=== PATIENT | male | born 1950 | race Caucasian/White ===

== ENCOUNTER 2022-09-27 21:37 | Emergency (ER) | payer MEDICARE, OTHER, SELFPAY ==
[2022-09-27 21:43] VITALS: BP 162/93; PULSE 60; RESP 16; TEMP 36.7; O2SAT 96
--- NOTE | 2022-09-27 21:54 | ECG_ITS ---
[facility] Test Date: 2022-09-27 Pat Name: Herb Chanel Department: Room: Gender: Male Chainer: : 1950 Requested By: Yassine Powell Order Number: [id number] Meryl MD: Monica Hadley M.D. Measurements Intervals [place] Rate: 70 P: 44 NM: 152 QRS: 43 QRSD: 93 T: 45 QT: 386 QTc: 417 Interpretive Statements SINUS RHYTHM Compared to ECG 09/19/2014 05:52:57 Myocardial infarct finding no longer present Electronically Signed On 09-27-2022 22:05:30 GARMENT MENDER by Monica Hadley M.D. [id number]
--- NOTE | 2022-09-27 21:54 | CTR_ITS ---
PROCEDURE INFORMATION: Exam: CT Head Without Contrast Exam date and time: 09/27/2022 10:13 PM Age: 72 years old Clinical indication: Numbness / parasthesia; Right; Additional info: Neuro TECHNIQUE: Imaging protocol: Computed tomography of the head without contrast. Radiation optimization: All CT scans at this facility use at least one of these dose optimization techniques: automated exposure control; mA and/or kV adjustment per patient size (includes targeted exams where dose is matched to clinical indication); or iterative reconstruction. Other protocol: This patient has received 0 known CTs and 0 known cardiac nuclear medicine studies in the 12 months prior to the current study. COMPARISON: No relevant prior studies available. RADIATION DOSE METRICS: Total DLP (mGy-cm): 1282.05 FINDINGS: Brain: Mild diffuse white matter disease likely reflecting chronic microvascular ischemic changes. Cerebral ventricles: No ventriculomegaly. Paranasal sinuses: Visualized sinuses are unremarkable. No fluid levels. Mastoid air cells: Visualized mastoid air cells are well aerated. Bones/joints: Unremarkable. No acute fracture. Soft tissues: Unremarkable. CT/CT head wo con* [id number] IMPRESSION: Negative for intracranial hemorrhage or mass effect.
[2022-09-27 22:00] VITALS: BP 155/85; RESP 18; O2SAT 97
--- NOTE | 2022-09-27 22:27 | ED_ITS ---
HPI - Neuro Symptoms/Deficit General: Chief Complaint: Neuro Symptoms/Deficit Stated Complaint: Right side of body tingling/numb Time Seen by Provider: 09/27/22 21:56 Source: patient History of Present Illness: 72-year-old male presenting after waking up from sleep. His son believes he probably fell asleep from 830 to 9 PM. When he awoke, he had a numb feeling in his face. His son thought that his right face may be weak or droopy. He says that his right arm felt heavy and tingly as well. Symptoms have essentially resolved except for some mild facial numbness which is improving at this point. He has a history of coronary disease status post stenting in the . No prior history of stroke. He has been under stress recently trying to get caught up with work. Last Observed Normal: 20:30 Timing confirmed by: family member Location: right face and right arm History of same: No Severity: mild Quality: weak, numb and tingling Relieving factors: none Exacerbating factors: none Context: sudden onset On Anticoagulants: No Associated symptoms: Deny chest pain, cough, diaphoresis, fevers/chills, headache(s), seizures, short of breath, vertigo or vomiting Review of Systems Const: Denies: fever(s) or diaphoresis Eyes: Denies: change in vision ENMT: Denies: throat pain Card: Denies: chest pain Resp: Denies: dyspnea or productive cough GI: Denies: abdominal pain or vomiting Musc: Denies: neck pain Neuro: Denies: headache(s) or vertigo Psych: Reports: anxiety PFSH ED PFSH: Medical History Anxiety ASHD (arteriosclerotic heart disease) Dyslipidemia Venous insufficiency Surgical History S/P PTCA (percutaneous transluminal coronary angioplasty) Family History Father , AGE 64 CAD (coronary artery disease) Myocardial infarction Social History Smoking and tobacco status: never smoked Marital status: service: No Current occupational status: employed NIH stroke score NIHSS: Level Of Consciousness - 1a: 0 Level Of Consciousness Questions - 1b: Both Correct Level Of Consciousness Commands - 1c: Both Correct Best Gaze - 2: Normal Visual Mooney - 3: No Visual Loss Facial Palsy - 4: Normal Motor Arm Right - 5: No Drift Motor Arm Left - 5: No Drift Motor Leg Right - 6: No Drift Motor Leg Left - 6: No Drift Limb Ataxia - 7: Absent Sensory - 8: Normal Best Language - 9: No Aphasia Dysarthia - 10: Normal Extinction And Inattention - 11: 0 Score: Total Score: 0 Physical Exam Const: COMMON NORMALS: no acute distress GENERAL APPEARANCE: cooperative; not ill appearing HENMT: COMMON NORMALS: normocephalic, atraumatic and Normal external nose present HEAD & SCALP: normocephalic and atraumatic FACE & SINUS: normal facial exam and face symmetric NOSE: Normal external nose present Eye: COMMON NORMALS: Equal, round and reactive pupils present and EOMs intact bilaterally PUPIL: Yes Equal, round and reactive pupils present Neck/C-Spine: GENERAL: Yes trachea midline Chest: CHEST: Yes Symmetrical chest wall rise Resp: COMMON NORMALS: normal respiratory effort, No retractions, No use of accessory muscles and clear to auscultation bilaterally AUSCULTATION: clear to auscultation bilaterally Cardio: COMMON NORMALS: regular rate and regular rhythm RATE: regular rate RHYTHM: regular rhythm GI: COMMON NORMALS: Normal to inspection, nondistended, normoactive bowel sounds present Extremity: COMMON NORMALS: no pedal edema Neuro: [place] COMA SCALE: document GCS findings [place] coma scale eye opening: Spontaneous [place] coma scale verbal response: Orientated [place] coma scale motor response: Obey commands [place] coma scale total score: 15 SENSORY EXAM: Yes extremities (intact) Psych: COMMON NORMALS: speech normal SPEECH: Yes normal speech Skin: COMMON NORMALS: no rashes or lesions noted GENERAL SKIN EXAM: no rashes or lesions noted Course Vital Signs: Vital signs: Vital Signs Temperature 98.0 F 09/27/22 21:43 Pulse Rate 55 L 09/27/22 23:30 Respiratory Rate 23 H 09/27/22 23:30 Blood Pressure 133/72 09/27/22 23:30 Pulse Oximetry 96 09/27/22 23:30 Oxygen Delivery Me thod 09/27/22 23:30 MDM - Neuro Symptoms/Deficit Medical Decision Making 72-year-old male with resolving right-sided neurological symptoms. His facial tingling is nearly resolved. His other symptoms are resolved. His NIH stroke scale is 0. His head CT is negative. CBC is not remarkable. His EKG shows a n ormal sinus rhythm with normal axis and intervals, no ST changes. He has had some short episodes of bradycardia here that are asymptomatic, and not profound. His blood pressure is 133/72. He will be allowed discharge home. Lab Data 09/27/22 22:30 09/27/22 22: Radiology Impressions Head CT 09/27/22 21:54 IMPRESSION: Negative for intracranial hemorrhage or mass effect. Laboratory Results WBC 6.9 10^3/uL (4.0-10.0) 09/27/22: RBC 4.21 10^6/uL (4.1-5.3) 09/27/22: Hgb 13.4 g/dL (11.7-16.6) 09/27/22: Hct 39.5 % (42.0-52.0) L 09/27/22: MCV 93.8 fl (80-94) 09/27/22: MCH 31.8 pg (28.0-34.0) 09/27/22: MCHC 33.9 g/dL (30.0-36.0) 09/27/22: RDW 13.1 % (12.1-15.1) 09/27/22: Plt Count 197 10^3/cmm (130-400) 09/27/22: MPV 10.4 fL (7.4-10.4) 09/27/22: Neut % (Auto) 60.2 % 09/27/22: Lymph % (Auto) 30.6 % 09/27/22: [place] % (Auto) 5.8 % 09/27/22: Eos % (Auto) 2.6 % 09/27/22: Baso % (Auto) 0.7 % 09/27/22: Neut # (Auto) 4.15 10^3/uL (1.8-7.7) 09/27/22: Lymph # (Auto) 2.1 10^3/uL (0.8-4.8) 09/27/22 22:30 [place] # (Auto) 0.4 10^3/uL (0.2-0.9) 09/27/22 22:30 Eos # (Auto) 0.2 10^3/uL (0.0-0.8) 09/27/22 22:30 Baso # (Auto) 0.1 10^3/uL (0.0-0.1) 09/27/22 22:30 Nucleated RBC % (auto) 0 % 09/27/22: Nucleated RBCs # 0.0 /100WBC 09/27/22 22: PT 13.50 SECONDS (12.1-14.9) 09/27/22: INR 1.00 (0.8-1.2) 09/27/22 22: APTT 30.3 SECONDS (23.9-36.7) 09/27/22 22: D-Dimer 0.67 ug/mIFEU (0-0.59) H 09/27/22 22:30 Sodium 143 mmol/L (136-145) 09/27/22 22: Potassium 3.7 mmol/L (3.5-5.1) 09/27/22 22: Chloride 103 mmol/L (98-107) 09/27/22: Carbon Dioxide 30 mmol/L (22-29) H 09/27/22 22: Anion Gap 13.7 (5-19) 09/27/22 22:30 BUN 14 mg/dL (8-23) 09/27/22 22: Creatinine 0.9 mg/dL (0.7-1.2) 09/27/22 22:30 GFR Calculation 83.4 mL/min (90-130) L 09/27/22 22: Glucose 118 mg/dL (65-115) H 09/27/22 22:30 Calculated Osmolality 298 mOsm/kg (285-295) H 09/27/22: Calcium 9.4 mg/dL (8.5-10.5) 09/27/22 22:30 Total Bilirubin 0.4 mg/dL (0.15-1.2) 09/27/22 22: AST 22 U/L (0-40) 09/27/22 22:30 ALT 24 U/L (0-41) 09/27/22 22:30 Alkaline Phosphatase 119 U/L (40-130) 09/27/22 22:30 Troponin T Baseline 11 ng/L (0-15) 09/27/22 22:30 NT-Pro-B Natriuret Pep 43 pg/mL (0-125) 09/27/22 22:30 Total Protein 6.5 g/dL (6.6-8.7) L 09/27/22 22:30 Albumin 4.3 g/dL (3.5-5.2) 09/27/22 22:30 Globulin 2.2 g/dL (1.3-4.6) 09/27/22 22:30 Discharge Plan Discharge Patient Disposition: Home Clinical Impression: Paresthesia Condition: Stable Prescriptions: No Action aspirin 81 mg tablet,delayed release (DR/EC) 81 mg PO DAILY Complete Multivitamin Tablet 1 tab PO DAILY atorvastatin 40 mg tablet 40 mg PO DAILY Qty: 90 3RF Discharge Orders: Discharge ED (Routine); Ordered 09/27/22 Ordered By: Aurelio Gonzalez Referrals: Mac Murray MD [Primary Care Provider] - 4-7 days Patient Instructions: Paresthesia (ED) Activity Restrictions/Additional Instructions: Return for any concerns of weakness, language problems, vision problems, syncope or passing out, any other concerning symptoms. See your doctor this coming week for follow-up. You may wish to do further outpatient testing Coding Level of Care Code ED Boatbuilder Supervisor for Leandra Fwrory Exam Comprehensive
[2022-09-27 22:30] VITALS: BP 141/75; PULSE 60; RESP 21; O2SAT 96
[2022-09-27 22:53] LABS: Basophils # 0.1 10^3/uL (0.0-0.1); Basophils % 0.7 %; Eosinophils # 0.2 10^3/uL (0.0-0.8); Eosinophils % 2.6 %; Hematocrit 39.5 % (42.0-52.0); Hemoglobin 13.4 g/dL (11.7-16.6); Lymphocytes # 2.1 10^3/uL (0.8-4.8); Lymphocytes % 30.6 %; Mean Corpuscular HGB Conc 33.9 g/dL (30.0-36.0); Mean Corpuscular Hemoglobin 31.8 pg (28.0-34.0); Mean Corpuscular Volume 93.8 fl (80-94); Mean Platelet Volume 10.4 fL (7.4-10.4); Monocytes # 0.4 10^3/uL (0.2-0.9); Monocytes % 5.8 %; Neutrophils # 4.15 10^3/uL (1.8-7.7); Neutrophils % 60.2 %; Nucleated Red Blood Cells % 0 %; Platelet Count 197 10^3/cmm (130-400); Red Blood Count 4.21 10^6/uL (4.1-5.3); Red Cell Distribution Width 13.1 % (12.1-15.1); White Blood Count 6.9 10^3/uL (4.0-10.0)
[2022-09-27 23:00] VITALS: BP 138/71; PULSE 53; RESP 19; O2SAT 95
[2022-09-27 23:09] LABS: Partial Thromboplastin Time 30.3 SECONDS (23.9-36.7)
[2022-09-27 23:11] LABS: D Dimer 0.67 ug/mIFEU (0-0.59)
[2022-09-27 23:20] LABS: Troponin(5th) Baseline 11 ng/L (0-15)
[2022-09-27 23:30] VITALS: BP 133/72; PULSE 55; RESP 23; O2SAT 96
[2022-09-27 23:30] LABS: Alanine Aminotransferase 24 U/L (0-41); Albumin Level 4.3 g/dL (3.5-5.2); Alkaline Phosphatase 119 U/L (40-130); Anion Gap 13.7 (5-19); Aspartate Amino Transferase 22 U/L (0-40); Blood Urea Nitrogen 14 mg/dL (8-23); Calcium 9.4 mg/dL (8.5-10.5); Carbon Dioxide 30 mmol/L (22-29); Chloride 103 mmol/L (98-107); Globulin 2.2 g/dL (1.3-4.6); Glomerular Filtration Rate 83.4 mL/min (90-130); Glucose 118 mg/dL (65-115); NT Pro B Type Natriuretic Pept 43 pg/mL (0-125); Osmolality Calculated 298 mOsm/kg (285-295); Potassium 3.7 mmol/L (3.5-5.1); Sodium 143 mmol/L (136-145); Total Bilirubin 0.4 mg/dL (0.15-1.2); Total Protein 6.5 g/dL (6.6-8.7)
== END 2022-09-28 00:10 | disposition home or self-care (01) ==
PROVIDERS: Nurse Practitioner Family; Emergency Provider Emergency Medicine
DX: R20.2 Paresthesia of skin (principal); Z79.82 Long term (current) use of aspirin; E78.5 Hyperlipidemia, unspecified
CPT/HCPCS: 70450; 80053; 83880; 84484; 85025; 85378; 85610; 85730; 93005; 99285

== ENCOUNTER 2023-05-23 06:40 | Inpatient (IN) | payer MEDICARE, OTHER, SELFPAY ==
[2023-05-23] VITALS (36 sets, daily range): BP systolic 90–160; BP diastolic 53–79; PULSE 44–113; RESP 16–34; TEMP 36.5–40.7; O2SAT 90–97; BMI 34.4
--- NOTE | 2023-05-23 | CT_ITS ---
WS: [id number] CTA HEAD AND NECK TECHNIQUE: Contrast enhanced CTA of the head and neck with coronal and sagittal reformatted images an d maximum intensity projection (MIP) images. NASCET criteria utilized. CLINICAL INFORMATION: SUDDEN CHANGE IN LOC COMPARISON: None. DLP: 530.[address] scans at [facility] use at least one of these dose optimization techniques: automated e xposure control; mA and/or kV adjustment per patient size (includes targeted exams where dose is matc hed to clinical indication); or iterative reconstruction. FINDINGS: RIGHT: RIGHT common carotid artery is patent. No significant RIGHT ICA stenosis. RIGHT ICA is patent to the skull base. LEFT: LEFT common carotid artery is patent. No significant LEFT ICA stenosis. Minimal atheromatous pl aque LEFT carotid bulb. LEFT ICA is patent to the skull base. INTRACRANIAL CTA: RIGHT dominant vertebral artery. Smaller but patent LEFT vertebral artery. Basilar artery is patent. Dolichoectatic RIGHT distal vertebral artery. LEFT vertebral artery primarily ends in PICA. Basilar artery is patent. Normal vascularity to the BLACK TOP MACHINE OPERATOR territory bilaterally. Both ICAs are patent at the skull base. Patent anterior communicating artery. Normal vascularity to t he VALERIE and MCA territories bilaterally. No evidence of proximal flow-limiting stenosis or aneurysm. IMPRESSION: 1. No significant ICA stenosis bilaterally. 2. RIGHT dominant vertebral artery. LEFT vertebral artery partially ends in PICA. Basilar artery is patent. 3. No flow-limiting intracranial stenosis
--- NOTE | 2023-05-23 | USCV_ITS ---
Mild Herb Chanel Age: 72 Gender: M : 1950 Exam Date: 05/23/2023 15:28 Ordering Phys: Nahun King MD Technologist: Chirag Urbina [place] [facility] [place]: chest pain BP: 104 / 73 HR: 86 Rhythm: Sinus Technical Quality: Adequate MEASUREMENTS (Male / Female) Normal Values 2D ECHO LV Diastolic Diameter PLAX 3.9 cm 4.2 - 5.9 / 3.9 - 5.3 cm LV Systolic Diameter PLAX 2.8 cm IVS Diastolic Thickness 1.0 cm 0.6 - 1.0 / 0.6 - 0.9 cm IVS Systolic Thickness 1.8 cm LVPW Diastolic Thickness 1.0 cm 0.6 - 1.0 / 0.6 - 0.9 cm LVPW Systolic Thickness 1.3 cm LVOT Diameter 2.0 cm LV Ejection Fraction 2D Teich 53.8 % LV Ejection Fraction MOD 2C 65.1 % LV Ejection Fraction 2C AL 65.5 % LA Diameter 4.2 cm M-MODE Aortic Annulus Diameter 3.3 cm LA Ao Ratio MM 1.2 MV E Point Septal Separation 0.9 cm DOPPLER AV Peak Velocity 156.0 cm/s LVOT Peak Velocity 99.0 cm/s AV Area Cont Eq vti 2.3 cm squared AV Area Cont Eq pk 2.1 cm squared MV Area PHT 3.7 cm squared Mitral E to A Ratio 1.0 MV E' Velocity 39.5 cm/s Mitral E to MV E' Ratio 9.7 Mitral E to LV E' Lateral Ratio 8.0 Mitral E to LV E' Septal Ratio 12.5 TR Peak Velocity 162.3 cm/s TR Peak Gradient 10.5 mmHg TV Peak E Velocity 74.0 cm/s Right Atrial Pressure 3.0 mmHg Pulmonary Artery Systolic Pressu 13.5 mmHg RV Acceleration Time 0.1 s FINDINGS Left Ventricle Normal left ventricular size. LV systolic function is normal with EF of 55 to 60%. No regional wall motion abnormalities are seen. Grade 1 diastolic dysfunction. Right Ventricle The right ventricle is normal in size and function. Right Atrium The right atrium is normal in size. Left Atrium The left atrium is normal in size. Mitral Valve Structurally normal valve. Mild mitral regurgitation. Aortic Valve Structurally normal aortic valve. No significant stenosis or regurgitation. Tricuspid Valve Mild tricuspid regurgitation. Insufficient TR jet to calculate RVSP. Pulmonic Valve Trace pulmonic regurgitation. Pericardium Normal pericardium without effusion. Aorta Normal ascending aorta dimension. IVC The inferior vena cava appears normal. CONCLUSIONS LV systolic function is normal with EF of 55 to 60%. Grade 1 diastolic dysfunction. Mild mitral regurgitation Mild tricuspid regurgitation Trace pulmonic regurgitation No comparison studies are available. Hong Romero MD (Electronically Signed) Final Date: 24 May 2023 09:14 S
--- NOTE | 2023-05-23 06:58 | PC.NURSE ---
Report given to ERLIN Martinez at this time.
--- NOTE | 2023-05-23 06:59 | XR_ITS ---
WS: [id number] XR chest 1V portable [id number] REASON FOR EXAM: dyspnea/cough FINDINGS: The chest is unchanged compared to 09/19/2014. Moderate tortuosity of the thoracic aorta. Normal heart size. Calcified granulomas disease in both hemithoraces. No active pulmonary parenchymal or pleural disease is identified. Mild scoliosis of the thoracic spine with mild degenerative spondylosis. IMPRESSION: No acute chest abnormality.
--- NOTE | 2023-05-23 07:03 | ECG_ITS ---
[facility] Test Date: 2023-05-23 Pat Name: Herb Chanel Department: Room: Gender: Male Pedorthist: : 1950 Requested By: Raimundo Vargas Order Number: [id number] Meryl MD: El Miller M.D. Measurements Intervals [place] Rate: 90 P: 29 ME: 152 QRS: 34 QRSD: 97 T: 28 QT: 317 QTc: 390 Interpretive Statements SINUS RHYTHM WITH OCCASIONAL SUPRAVENTRICULAR PREMATURE COMPLEXES Features suggestive of type I Brugada syndrome Sinus pauses with junctional escape beats POSSIBLE LEFT ATRIAL ENLARGEMENT [-0.1mV P-WAVE IN V1/V2] MARKED ST ELEVATION, CONSIDER SEPTAL INJURY [MARKED ST ELEVATION W/O NORMALLY INFLECTED T-WAVE IN V1/V2] ACUTE NH Compared to ECG 09/27/2022 22:03:16 ST (T wave) deviation now present Electronically Signed On 05-23-2023 19:06:10 CDT by El Miller M.D. [id number]
--- NOTE | 2023-05-23 07:13 | W.ED.ALLEREA ---
HPI - Allergic Reaction General: Chief complaint: Allergic Reaction Stated complaint: rash Time Seen by Provider: 05/23/23 06:42 Source: patient Mode of arrival: EMS History of Present Illness: HPI narrative: 72-year-old male presents emergency room complaining of chills and tremors. He states it began overnight he relates to having taken some Benadryl recently has had some pain and burning with urination he also has had a fever on arrival here his temp was 1021. Denies any shortness of breath no abdominal pain or flank pain no noticeable hematuria. He has had trouble with BPH in the past. He also has history of coronary disease but denies any chest pain or shortness of breath. Associated symptoms: Reports abdominal pain and nausea; Deny vomiting Review of Systems Const: Reports: fever(s), body aches and fatigue; Denies: chills, change in appetite or malaise ENMT: Denies: throat pain, ear or mastoid pain, nasal discharge or nasal congestion Card: Denies: chest pain, palpitations, irregular heart rhythm, edema, dyspnea on exertion or orthopnea Resp: Denies: dyspnea, productive cough or non-productive cough GI: Reports: abdominal pain and nausea; Denies: vomiting, hematemesis, coffee ground emesis, diarrhea, constipation, bloating, hematochezia or melena : Denies: flank pain, dysuria, urinary frequency or urinary urgency Skin/Breast: Denies: rash or pruritus PFSH ED PFSH: Medical History Anxiety ASHD (arteriosclerotic heart disease) Dyslipidemia Venous insufficiency Surgical History S/P PTCA (percutaneous transluminal coronary angioplasty) Family History Father , AGE 64 CAD (coronary artery disease) Myocardial infarction Social History Smoking and tobacco status: never smoked Marital status: service: No Current occupational status: employed Physical Exam Const: GENERAL APPEARANCE: cooperative and comfortable ORIENTATION/CONSCIOUSNESS: Yes awake, Yes oriented to person, Yes oriented to place and Yes oriented to time HENMT: COMMON NORMALS: normocephalic, atraumatic and hearing grossly normal bilaterally HEAD & SCALP: normocephalic and atraumatic Resp: COMMON NORMALS: normal respiratory effort, No retractions, No use of accessory muscles and clear to auscultation bilaterally AUSCULTATION: clear to auscultation bilaterally Cardio: COMMON NORMALS: regular rhythm and No murmurs present (Cardio) RATE: tachycardic RHYTHM: regular rhythm GI: COMMON NORMALS: Soft to palpation and No hepatosplenomegaly present AUSCULTATION: Yes normoactive bowel sounds PALPATION: Yes Soft to palpation, No Tenderness to palpation present (GI), No Guarding due to palpation present (GI) and Yes No hepatosplenomegaly present Extremity: COMMON NORMALS: normal to inspection, capillary refill normal, no clubbing, cyanosis or edema, no calf tenderness and no pedal edema Neuro: SENSORIUM/ORIENTATION: Yes oriented to person, Yes oriented to place and Yes oriented to time Skin: COMMON NORMALS: no rashes or lesions noted GENERAL SKIN EXAM: no rashes or lesions noted Course Vital Signs: Vital signs: Vital Signs Temperature 102.1 F H 05/23/23 06:51 Pulse Rate 113 H 05/23/23 11:41 Respiratory Rate 18 05/23/23 11:41 Blood Pressure 160/74 05/23/23 11:41 Pulse Oximetry 90 05/23/23 11:41 Oxygen Delivery Me thod Room Air 05/23/23 11:41 MDM - Allergic Reaction Medical Decision Making Acute cystitis likely prostatitis. Patient is very concerned that Benadryl may have caused this may have caused some anticholinergic side effects which cause little bit of urinary retention and exacerbated things. He does not retaining urine at this time. CT renal protocol negative for urinary retention or hydronephrosis or abscess. Discussed with hospitalist cultures been done will admit he was given initially Rocephin. His lactic acid and T. bili are elevated his white count is normal he does not meet the criteria for septic shock. Medical Records I reviewed the patient's medical records. Lab Data I reviewed the patient's lab results. 05/23/23 07:11 05/23/23 07:11 Laboratory Results WBC 11.24 10^3/uL (3.29-11.43) 05/23/23 07:11 RBC 4.19 10^6/uL (3.85-5.65) 05/23/23 07:11 Hgb 13.90 g/dL (11.27-16.99) 05/23/23 07:11 Hct 40.3 % (37-53) 05/23/23 07:11 MCV 96.2 fl (82-101) 05/23/23 07:11 MCH 33.2 pg (27-33) H 05/23/23 07:11 MCHC 34.5 g/dL (30-55) 05/23/23 07:11 RDW 12.9 % (12.1-15.1) 05/23/23 07:11 Plt Count 146 10^3/cmm (157-399) L 05/23/23 07:11 MPV 10.4 fL (7.4-10.4) 05/23/23 07:11 Neut % (Auto) 87.6 % 05/23/23 07:11 Lymph % (Auto) 6.5 % 05/23/23 07:11 [place] % (Auto) 4.8 % 05/23/23 07:11 Eos % (Auto) 0.4 % 05/23/23 07:11 Baso % (Auto) 0.4 % 05/23/23 07:11 Neut # (Auto) 9.86 10^3/uL (1.8-7.7) H 05/23/23 07:11 Lymph # (Auto) 0.7 10^3/uL (0.8-4.8) L 05/23/23 07:11 [place] # (Auto) 0.5 10^3/uL (0.2-0.9) 05/23/23 07:11 Eos # (Auto) 0.0 10^3/uL (0.0-0.8) 05/23/23 07:11 Baso # (Auto) 0.0 10^3/uL (0.0-0.1) 05/23/23 07:11 Nucleated RBC % (auto) 0 % 05/23/23 07:11 Nucleated RBCs # 0.0 /100WBC 05/23/23 07:11 Sodium 140 mmol/L (136-145) 05/23/23 07:11 Potassium 3.4 mmol/L (3.5-5.1) L 05/23/23 07:11 Chloride 103 mmol/L (98-107) 05/23/23 07:11 Carbon Dioxide 24 mmol/L (22-29) 05/23/23 07:11 Anion Gap 16.4 (5-19) 05/23/23 07:11 BUN 12 mg/dL (8-23) 05/23/23 07:11 Creatinine 1.1 mg/dL (0.7-1.2) 05/23/23 07:11 GFR Calculation 66.2 mL/min (90-130) L 05/23/23 07:11 Glucose 131 mg/dL (65-115) H 05/23/23 07:11 Calculated Osmolality 292 mOsm/kg (285-295) 05/23/23 07:11 Lactic Acid 2.8 mmol/L (0.5-2.2) H 05/23/23 07:11 Lactic Acid (Sepsis) 1.2 mmol/L (0.5-2.2) 05/23/23 10:13 Calcium 9.1 mg/dL (8.5-10.5) 05/23/23 07:11 Magnesium 1.8 mg/dL (1.7-2.3) 05/23/23 07:11 Total Bilirubin 2.0 mg/dL (0.15-1.2) H 05/23/23 07:11 AST 17 U/L (0-40) 05/23/23 07:11 ALT 17 U/L (0-41) 05/23/23 07:11 Alkaline Phosphatase 111 U/L (40-130) 05/23/23 07:11 Troponin T Gen 5 ng/L 16 ng/L (0-15) H 05/23/23 07:11 Total Protein 6.6 g/dL (6.6-8.7) 05/23/23 07:11 Albumin 4.1 g/dL (3.5-5.2) 05/23/23 07:11 Globulin 2.5 g/dL (1.3-4.6) 05/23/23 07:11 TSH 1.67 uIU/mL (0.27-4.20) 05/23/23 07:11 Urine Color Yellow (Yellow) 05/23/23 08:52 Urine Appearance Clear (CLEAR) 05/23/23 08:52 Urine pH 8 (5-7) H 05/23/23 08:52 Ur Specific [place] 1.015 (1.005-1.030) 05/23/23 08:52 Urine Protein Neg (Negative) 05/23/23 08:52 Urine Glucose (UA) Norm (Normal) 05/23/23 08:52 Urine Ketones Negative (Negative) 05/23/23 08:52 Urine Blood 2+ (Negative) H 05/23/23 08:52 Urine Nitrate Positive (Negative) H 05/23/23 08:52 Urine Bilirubin Neg (Negative) 05/23/23 08:52 Prot Sulfosalicylic Acd Negative (Negative) 05/23/23 08:52 Urine Urobilinogen Norm mg/dL (Negative) 05/23/23 08:52 Ur Leukocyte Esterase 2+ (Negative) H 05/23/23 08:52 Urine RBC 0-4 /hpf (0-2) H 05/23/23 08:52 Urine WBC >100 /hpf (0-5) H 05/23/23 08:52 Ur Squamous Epith Cells 0-4 /hpf (0-5) H 05/23/23 08:52 Amorphous Sediment Not Reportable 05/23/23 08:52 Urine Bacteria 2+ /hpf (NONE) H 05/23/23 08:52 Urine Mucus Trace /hpf 05/23/23 08:52 Coronavirus 229E (PCR) Not detected (NOT DETECT) 05/23/23 08:17 Influenza Type A Ag negative (Negative) 05/23/23 08:17 Influenza Type B Ag negative (Negative) 05/23/23 08:17 SARS-CoV-2 (PCR) Not detected (NOT DETECT) 05/23/23 08:17 All radiology interpretation(s) finalized by discharge Discharge Plan Discharge Patient Disposition: Admitted As Inpatient Admit Provider: Nahun King Clinical Impression: Cystitis, Acute prostatitis Condition: Stable Coding Level of Care Code ED Shale Processing Technician for Leandra Anthony
[2023-05-23 07:28] LABS: Basophils % 0.4 %; Eosinophils % 0.4 %; Hematocrit 40.3 % (37-53); Lymphocytes # 0.7 10^3/uL (0.8-4.8); Lymphocytes % 6.5 %; Mean Corpuscular HGB Conc 34.5 g/dL (30-55); Mean Corpuscular Hemoglobin 33.2 pg (27-33); Mean Corpuscular Volume 96.2 fl (82-101); Mean Platelet Volume 10.4 fL (7.4-10.4); Monocytes # 0.5 10^3/uL (0.2-0.9); Monocytes % 4.8 %; Neutrophils # 9.86 10^3/uL (1.8-7.7); Neutrophils % 87.6 %; Nucleated Red Blood Cells % 0 %; Platelet Count 146 10^3/cmm (157-399); Red Blood Count 4.19 10^6/uL (3.85-5.65); Red Cell Distribution Width 12.9 % (12.1-15.1); White Blood Count 11.24 10^3/uL (3.29-11.43)
[2023-05-23 07:50] LABS: Lactic Sepsis W/Reflex 2.8 mmol/L (0.5-2.2)
[2023-05-23 07:51] LABS: Alanine Aminotransferase 17 U/L (0-41); Albumin Level 4.1 g/dL (3.5-5.2); Alkaline Phosphatase 111 U/L (40-130); Anion Gap 16.4 (5-19); Aspartate Amino Transferase 17 U/L (0-40); Blood Urea Nitrogen 12 mg/dL (8-23); Calcium 9.1 mg/dL (8.5-10.5); Carbon Dioxide 24 mmol/L (22-29); Chloride 103 mmol/L (98-107); Globulin 2.5 g/dL (1.3-4.6); Glomerular Filtration Rate 66.2 mL/min (90-130); Glucose 131 mg/dL (65-115); Osmolality Calculated 292 mOsm/kg (285-295); Potassium 3.4 mmol/L (3.5-5.1); Sodium 140 mmol/L (136-145); Total Protein 6.6 g/dL (6.6-8.7)
[2023-05-23] MEDS: cefTRIAXone 1,000 MG in sodium chloride 0.9% (plus) 50 ML 100 MG IV (08:40)
[2023-05-23 08:54] LABS: Influenza A by IFA negative (Negative); Influenza B by IFA negative (Negative)
[2023-05-23 09:10] LABS: Reflex Lactate Order REFLEX LACTIC ORDERD
[2023-05-23 09:37] LABS: Specific Gravity, Urine 1.015 (1.005-1.030); Urine Appearance Clear (CLEAR); Urine Color Yellow (Yellow); pH Urine 8 (5-7)
[2023-05-23 09:38] LABS: Add Urine Culture? Yes; Add Urine Microscopic? YES; Bacteria Urine 2+ /hpf; Bilirubin Urine Neg (Negative); Blood Urine 2+ (Negative); Glucose Urine UA Norm (Normal); Ketones Urine Negative (Negative); Leukocyte Esterase Urine 2+ (Negative); Mucus Urine TRACE /hpf; Nitrate Urine Positive (Negative); Protein Urine Neg (Negative); RBC Urine 0-4 /hpf (0-2); Squamous Epithelial Cell Urine 0-4 /hpf (0-5); Sulfosalicylic Acid Urine Negative (Negative); Urobilinogen Urine Norm (Negative); WBC Urine >100 /hpf (0-5)
--- NOTE | 2023-05-23 09:41 | CT_ITS ---
WS: [id number] CT ABDOMEN PELVIS TECHNIQUE: Noncontrast CT of the abdomen and pelvis with coronal and sagittal reformatted images. CLINICAL INFORMATION: pyelonephritis COMPARISON: None. DLP: 858.[address] scans at [facility] use at least one of these dose optimization techniques: automated e xposure control; mA and/or kV adjustment per patient size (includes targeted exams where dose is matc hed to clinical indication); or iterative reconstruction. FINDINGS:Enlarged prostate measuring 5.0 cm. Bladder is decompressed with diffuse bladder wall thicke gilma. This can be seen with cystitis or chronic bladder outlet obstruction.Slight induration about th e prostate. Correlation for prostatitis. Adrenal glands are normal. No obstructing renal or ureteral calculi. No hydronephrosis in either kidn ey. Mild hepatomegaly. Normal noncontrast spleen. Normal GE junction. Noncontrast pancreas appears normal . Normal caliber abdominal aorta. Sigmoid diverticulosis. No evidence of acute diverticulitis. Normal appendix in the RIGHT lower quadr ant. Disc space narrowing L3-L4 L4-L5 and L5-S1. IMPRESSION: 1. No obstructing renal or ureteral calculi. No hydronephrosis. 2. Diffuse bladder wall thickening can be seen with chronic cystitis or bladder outlet obstruction. 3. Enlarged prostate measuring 5.0 cm. Recommend correlation PSA. Mild thickening of the seminal ves icles bilaterally. 4. Slight induration about the prostate. Correlation for prostatitis. 5. Sigmoid diverticulosis. No evidence of acute diverticulitis.
[2023-05-23 10:17] LABS: Adenovirus Not Detected (NOT DETECT); Chlamydia Pneumoniae Not Detected (NOT DETECT); Coronavirus 229E,HKU1,NL63,OC4 Not Detected (NOT DETECT); Human Metapneumovirus Not Detected (NOT DETECT); Human Rhinovirus/Enterovirus Not Detected (NOT DETECT); Influenza A Not Detected (NOT DETECT); Influenza A H1 Not Detected (NOT DETECT); Influenza A H1-2009 Not Detected (NOT DETECT); Influenza A H3 Not Detected (NOT DETECT); Influenza B Not Detected (NOT DETECT); Mycoplasma Pneumoniae Not Detected (NOT DETECT); Parainfluenza Virus Type 1 Not Detected (NOT DETECT); Parainfluenza Virus Type 2 Not Detected (NOT DETECT); Parainfluenza Virus Type 3 Not Detected (NOT DETECT); Parainfluenza Virus Type 4 Not Detected (NOT DETECT); Respiratory Syncytial Virus A Not Detected (NOT DETECT); Respiratory Syncytial Virus B Not Detected (NOT DETECT); SARS-COV-2 Not Detected (NOT DETECT)
[2023-05-23 10:36] LABS: Lactic Acid level (Lactate) 1.2 mmol/L (0.5-2.2)
--- NOTE | 2023-05-23 11:06 | P.HP_ITS ---
Providers/Chief Complaint Admitting Physician: Nahun King MD, hospitalist Chief Complaint: rash History of Present Illness Herb Chanel is a 72 year old male presenting to the emergency department with concerns initially of allergic reaction. He reports about a month ago he had poison rajeev/oak for which he took prednisone. Then he had some areas in his hairline that were bumpy so he thought about taking some Benadryl in the last 3 days. He then had some difficulty urinating, emptying his bladder fully. The last episode of that was last night, when he also had subjective fevers, along with chills, sweats, nausea and retching. In the emergency department he was noted to have a temperature 102.1. He currently feels better and reports he may be back to normal. Denies any nausea or vomiting currently. Reports he had a cardiac stent, approximately 17 years ago or so. No issues since then. No chest discomfort. Review of Systems General: Reports: 10 or more systems reviewed and unremarkable except in HPI and below Card: Denies: chest pain Resp: Denies: dyspnea GI: Reports: nausea; Denies: abdominal pain : Reports: difficulty urinating Medications/Allergies Home Medications Medication Instructions Recorded Confirmed Last Taken Type aspirin 81 mg tablet,delayed 81 mg PO BEDTIME 02/16/20 05/23/23 05/22/23 History release atorvastatin 80 mg tablet 80 mg PO BEDTIME 05/23/23 05/23/23 05/22/23 History lisinopril 20 mg tablet 20 mg PO BEDTIME 05/23/23 05/23/23 05/22/23 History multivitamin 1 tab PO BEDTIME 05/23/23 05/23/23 05/22/23 History Allergies Allergy/AdvReac Type Severity Reaction Status Date / Time No Known Allergies Allergy Verified 05/23/23 07:53 PFSH Acute PFSH: Medical History Anxiety ASHD (arteriosclerotic heart disease) Dyslipidemia Venous insufficiency Surgical History S/P PTCA (percutaneous transluminal coronary angioplasty) Family History Father , AGE 64 CAD (coronary artery disease) Myocardial infarction Social History Smoking and tobacco status: never smoked Marital status: service: No Current occupational status: employed Vitals/I&O/Wt Last Vital Signs Temp 102.1 F H 05/23/23 06:51 Pulse 103 H 05/23/23 06:51 Resp 16 05/23/23 06:51 BP 153/77 05/23/23 06:51 Pulse Ox 93 05/23/23 06:51 Weight last 48 hrs Weight 99.79 kg Physical Exam Narrative: General exam is a white male, no distress HEENT: Atraumatic and normocephalic. Oropharynx clear. Neck is supple no lymphadenopathy thyromegaly Cardiovascular regular rate and rhythm without murmur, no S3 or S4 Lungs clear no wheezing or crackles Abdomen soft. Nontender. No obvious organomegaly. exams deferred Extremities trace edema bilaterally. No cyanosis or clubbing Skin no rash Neuro no focal deficits Data 05/23/23 07:11 05/23/23 07:11 Other Labs: Chest x-ray by my read is normal EKG by my read demonstrates sinus rhythm, normal axis, ST elevation in V1/V2, q uestion Brugada pattern. This was present on previous EKG as well. A sinus pause is also noted. Micro: Microbiology 05/23/23 07:18 Blood Culture - Preliminary Blood SPECIMEN COLLECTED 05/23/23 07:11 Blood Culture - Preliminary Blood SPECIMEN COLLECTED Other data: LFTs normal with the exception of bilirubin of 2.0. Initial lactate 2.8 with repeat of 1.2 Calcium, albumin normal Urinalysis greater than 100 whites, 0-4 reds COVID PCR and influenza negative CT renal protocol demonstrates no obstruction, bladder wall thickening, enlarged prostate, question prostatitis and sigmoid diverticulosis A&P Assessment and plan (1) Complicated UTI (urinary tract infection): Patient with fever, difficulty urinating, bladder wall thickening and question of prostatitis. Urine and blood cultures been sent Initial lactate elevated, now normal Continue Rocephin 1 g IV every 24 hours and await cultures Add Flomax 0.4 mg daily (2) Abnormal EKG: Question Brugada pattern on EKG. This was present before. Check magnesium and TSH Repeat EKG tomorrow Supplement potassium Telemetry Check troponin on blood in lab (3) Hypokalemia: Supplement potassium, recheck tomorrow (4) ASHD (arteriosclerotic heart disease): Patient with history of coronary disease. Secondary to abnormal EKG troponin will be checked x1. Continue aspirin, atorvastatin. Plan History of hypertension, continue lisinopril Full code Lovenox for DVT prophylaxis Attestations Medical Necessity Statement*: Will require less than 2 midnight stay for evaluation and treatment of complicated UTI Diagnoses Complicated UTI (urinary tract infection) N39.0 Abnormal EKG R94.31 Hypokalemia E87.6 ASHD (arteriosclerotic heart disease) I25.10 Time Spent (min) 47
[2023-05-23] MEDS: potassium chloride ER 20 mEq Tablet 40 MEQ PO (11:22)
[2023-05-23 11:27] LABS: Troponin T (5th) Once 16 ng/L (0-15)
[2023-05-23 11:43] LABS: Magnesium 1.8 mg/dL (1.7-2.3); Thyroid Stimulating Hormone 1.67 uIU/mL (0.27-4.20)
[2023-05-23 13:06] LABS: Glucose Point of Care 98 mg/dL (70-110)
[2023-05-23 13:08] LABS: Troponin T (5th) Once 25 ng/L (0-15)
[2023-05-23] MEDS: ondansetron 2 mg/ML SDV 2 mL 4 MG IVP (13:18)
--- NOTE | 2023-05-23 13:20 | CT_ITS ---
WS: [id number] CT HEAD TECHNIQUE: Noncontrast CT of the head obtained from the skullbase to the vertex. CLINICAL INFORMATION: suspected stroke, sudden change in LOC COMPARISON: None. DLP: 1251.[address] scans at [facility] use at least one of these dose optimization techniques: automated e xposure control; mA and/or kV adjustment per patient size (includes targeted exams where dose is matc hed to clinical indication); or iterative reconstruction. FINDINGS: No evidence of intracranial hemorrhage or mass effect. Ventricular system and basal cisterns are mahmood nt. Mild small vessel changes with mild parenchymal volume loss. No extra-axial fluid collections. No evidence of mass or mass effect. Incidental dolichoectatic basilar artery. Benign basal ganglia calc ifications. Paranasal sinuses and mastoid air cells are well aerated. .Normal visualized soft tissues. IMPRESSION: 1. No evidence of intracranial hemorrhage or mass effect. 2. No acute intracranial findings. Notified Nahun King MD at 05/23/2023 1:53 PM.
[2023-05-23] MEDS: iohexol 350 mg/mL 500 mL Btl (per mL) IV (13:26)
[2023-05-23] MEDS: sodium chloride 0.9% 1,000 ML 999 ML IV ×2 (13:50→17:15)
[2023-05-23] MEDS: acetaminophen 1,000 MG/100 ML PIGGYBACK 400 MG IV (13:51)
--- NOTE | 2023-05-23 13:58 | PC.NURSE ---
at approx 1300 LOGIN EMERGENCY MEDICAL TECH CALLED THIS RN INTO PATIENTS ROOM DUE TO NOT BEING ABLE TO GET PATIENTS BP AND O2. PATIENT WAS SHIVERING AND STATED THAT HE WAS COLD. WHILE AT BEDSIDE PATIENT BECAME UNABLE TO FOLLOW COMMANDS, OR ANSWER QUESTIONS. MANUAL BP, GLUCOSE, AND NIHSS COMPLETED. PT SCORED 13 ON NIHSS AND CODE STROKE WAS CALLED. PT ATTEMPTED TO SIT UP AND VOMITED. ZOFRAN ADMINISTERED. PATIENT THEN WHEELED TO CT SCAN WITH DR. WILSON AT BEDSIDE. ORDERS GIVEN TO TRANSFER PATIENT TO ICU WHILE PATIENT WAS IN CT. PATIENT TRANSPORTED TO ICU DIRECTLY AFTER CT. BEDSIDE REPORT GIVEN TO ERLIN HOUSER.
--- NOTE | 2023-05-23 14:01 | ECG_ITS ---
[facility] Test Date: 2023-05-23 Pat Name: Herb Chanel Department: Room: ICU11 Gender: Male Scaffold Erector: : 1950 Requested By: Nahun King Order Number: [id number] Meryl MD: El Miller M.D. Measurements Intervals [place] Rate: 88 P: 45 SD: 116 QRS: 42 QRSD: 110 T: 25 QT: 336 QTc: 408 Interpretive Statements SINUS RHYTHM WITH MARKED SINUS ARRHYTHMIA WITH SHORT SD INTERVAL MARKED ST ELEVATION, CONSIDER SEPTAL INJURY [MARKED ST ELEVATION W/O NORMALLY INFLECTED T-WAVE IN V1/V2] TYPE I BRUGADA PATTERN (NON-DIAGNOSTIC) [COVED/SADDLEBACK ST ELEVATION > 0.1mV IN 2 OF V1-3] ACUTE OR Compared to ECG 05/23/2023 07:03:18 Short SD interval now present ST (T wave) deviation still present Electronically Signed On 05-23-2023 19:14:51 CDT by El Miller M.D. [id number]
--- NOTE | 2023-05-23 14:39 | P.CONIM_ITS ---
Providers/Reason For Consult Consulting Physician/Specialty*: Hong Bangura MD/ Cardiology Reason for Consult*: Brugada pattern on EKG/ confusion Requesting Physician: Dr King Attending Physician: Nahun King MD History of Present Illness History of Present Illness Herb Chanel is a 72 year old male with past medical history of CAD with stent in remote past has been admitted and treated for UTI and high-grade fever. He denies chest pain. During hospitalization he had an episode which he does not remember but reported he was not responding. Stroke alert was called and a CT scan was performed. After the episode he is recovered neurologically. Un fortunately patient was not on telemetry at that time. Cardiology was consulted as EKG is showing Brugada type 1 pattern. Also has brief sinus pauses. Review of Systems Const: Denies: fever(s) or chills Eyes: Denies: change in vision ENMT: Denies: throat pain Card: Reports: swelling of feet/ankles (has improved with compression socks); Denies: chest pain, irregular heart rhythm, lightheadedness or dyspnea on exertion Resp: Denies: non-productive cough or wheezing GI: Denies: heartburn : Denies: flank pain Musc: Denies: back pain or joint pain Neuro: Denies: headache(s) or dizziness Beny/Lymph: Denies: easy bruising or easy bleeding Medications/Allergies Home Medications Medication Instructions Recorded Confirmed Last Taken Type aspirin 81 mg tablet,delayed 81 mg PO BEDTIME 02/16/20 05/23/23 05/22/23 History release atorvastatin 80 mg tablet 80 mg PO BEDTIME 05/23/23 05/23/23 05/22/23 History lisinopril 20 mg tablet 20 mg PO BEDTIME 05/23/23 05/23/23 05/22/23 History multivitamin 1 tab PO BEDTIME 05/23/23 05/23/23 05/22/23 History Allergies Allergy/AdvReac Type Severity Reaction Status Date / Time No Known Allergies Allergy Verified 05/23/23 07:53 Current Medications Generic Name Dose Route Start Last Admin Trade Name Freq PRN Reason Stop Dose Admin Sodium Chloride 1,000 mls @ 999 mls/hr 05/23/23 13:30 05/23/23 13:50 Sodium Chloride 0.9% IV 999 mls/hr .Q1H1M SAQIB Administration Ondansetron HCl 4 mg 05/23/23 12:35 05/23/23 13:18 Ondansetron 2 Mg/Ml Sdv 2 Ml IVP 4 mg Q6H PRN Administration vomiting, or N/V if npo PFSH Acute PFSH: Medical History Anxiety ASHD (arteriosclerotic heart disease) Dyslipidemia Venous insufficiency Surgical History S/P PTCA (percutaneous transluminal coronary angioplasty) Family History Father , AGE 64 CAD (coronary artery disease) Myocardial infarction Social History Smoking and tobacco status: never smoked Marital status: service: No Current occupational status: employed Vitals/I&O/Wt Last Vital Signs Temp 100.6 F H 05/23/23 13:15 Pulse 100 05/23/23 13:15 Resp 16 05/23/23 13:15 BP 110/68 05/23/23 13:15 Pulse Ox 91 05/23/23 13:15 O2 Del Method Room Air 05/23/23 13:15 05/22/23 05/23/23 05/23/23 22:59 06:59 14:59 Intake Total 150 / 150 Balance 150 / 150 Weight last 48 hrs Weight 220 lb Physical Exam Narrative: GENERAL: Patient is alert, awake and oriented x3. [] NECK: No jugular vein distension. [] HEENT: No cyanosis. No icterus. No pallor. [] HEART: Regular S1 and S2. No murmur, rub or gallop. [] LUNGS: Clear to auscultate bilaterally. [] CENTRAL NERVOUS SYSTEM: Grossly nonfocal. [] EXTREMITIES: Lower extremities with 1+ edema bilaterally. Pulses palpable in the lower extremities, both dorsalis pedis and posterior tibial. [] Data 05/24/23 02:21 05/24/23 02:21 Micro: Microbiology 05/23/23 07:18 Blood Culture - Preliminary Blood SPECIMEN COLLECTED 05/23/23 07:11 Blood Culture - Preliminary Blood SPECIMEN COLLECTED A&P Assessment and plan (1) 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: (2) ASHD (arteriosclerotic heart disease): (3) Dyslipidemia: (4) Complicated UTI (urinary tract infection): Plan Patient's EKG is consistent with type I Brugada pattern. This was noted while he was febrile. There is 1 episode during which syncope cannot be ruled out. He was not responsive. Not on the telemetry at that time. We will recommend sending patient out of hospital on LifeVest with EP evaluation as an outpatient for EP study for inducible arrhythmias and based on the findings, decision to place ICD. Avoid rate controlling medications at this time. Close temperature monitoring and control. ECHO ordered Thank you for involving us with care of this patient. We will continue to follow. Please call with questions. Consult Attestations Medical Necessity Statement: Care expected to cross 2 midnights. Coding Level of Care Code Acute Code for [facility] Fwd Diagnoses 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 I49.8 ASHD (arteriosclerotic heart disease) I25.10 Dyslipidemia E78.5 Complicated UTI (urinary tract infection) N39.0
[2023-05-23] MEDS: sodium chloride 0.9% 1,000 ML 75 ML IV (14:57)
--- NOTE | 2023-05-23 14:59 | PM.CCNAC ---
Critical Care Event Note The high probability of a clinically significant, sudden or life threatening deterioration of the patient's [infectious disease, cardiac] system(s) required my full and direct attention, intervention and personal management. The critical care time is as shown. This time is in addition to time spent performing any reported procedures but includes the following: [x] Data and vital sign review and interpretation [x] Patient assessment, examination and intervention [x] Documentation [x] Medication orders and management Critical Care Time Code activated: No Critical Care Time (min): 41 Additional information about critical care time: I responded to patient's bedside secondary to stroke alert. He had transition upstairs. From my understanding, had set up, vomited, and was not responsive. Nursing had done a glucose, and vitals. Systolic blood pressure was a little bit above 90. He was diaphoretic. Initial NIHSS stroke scale, mainly secondary to unresponsiveness, was around 18. He was rushed to the CT scanner, where he received a CTA of his head and neck and CT head without contrast. I discussed these findings with radiology, and there were no concerning abnormalities. In transition from the CT, to the ICU he became alert responsive. His NIHSS score was 1, secondary to flat nasolabial area on his face which family reported later was chronic. Vital signs were repeated there and temperature 105 ?F. 1 L of normal saline was given, and an EKG was repeated. Repeat troponin was evaluated. He continued to have a Brugada pattern on his EKG. I have visited with cardiology, regarding his case, EKG as well as elevated troponin. An echocardiogram will be obtained and they will see him as well. I have visited extensively with his ex- who was at bedside regarding his current status. We have also requested records from [facility] where he was seen about 3 weeks ago for complete evaluation and there were no concerns. Antibiotic was changed to Zosyn from Rocephin secondary to concern of aspiration with event. He is currently on 4 L of oxygen and without respiratory distress. 41 minutes spent managing situation, at bedside, and this patient with critical care event. Coding Level of Care Code Critical Care Other Coding Information No focused coding review requested Time Spent (min) 41
[2023-05-23 15:22] LABS: Troponin T (5th) Once 46 ng/L (0-15)
[2023-05-23] MEDS: piperacillin-tazobactam 3.375 GM in sodium chloride 0.9% (plus) 50 ML IV (15:44)
[2023-05-23] MEDS: enoxaparin 40 mg/0.4 mL Syringe SUBCUT (15:44)
--- NOTE | 2023-05-23 17:11 | PC.NURSE ---
Dr. King notified via telephone of consistently low blood pressures. Orders received and read back for NS bolus and CHEETA following that. See MAR.
[2023-05-23] MEDS: sodium chloride 0.9% 500 ML 999 ML IV (19:13)
[2023-05-23] MEDS: tamsulosin 0.4 mg Capsule PO (20:48)
[2023-05-23] MEDS: atorvastatin 40 mg Tablet 80 MG PO (20:48)
[2023-05-23] MEDS: aspirin 81 mg EC Tablet PO (20:48)
[2023-05-24] VITALS (47 sets, daily range): BP systolic 82–128; BP diastolic 48–78; PULSE 34–81; RESP 16–36; TEMP 36.4–37.4; O2SAT 88–99
[2023-05-24] MEDS: piperacillin-tazobactam 3.375 GM in sodium chloride 0.9% (plus) 50 ML IV ×4 (00:49→23:29)
--- NOTE | 2023-05-24 02:03 | PC.NURSE ---
Patient had 2 episodes of cardiac pauses that lasted more than [address] Murillo was notified and no new orders have been received.
[2023-05-24 02:32] LABS: Basophils # 0.1 10^3/uL (0.0-0.1); Basophils % 0.4 %; Eosinophils % 0.2 %; Hematocrit 34.1 % (37-53); Lymphocytes # 1.5 10^3/uL (0.8-4.8); Mean Corpuscular HGB Conc 33.7 g/dL (30-55); Mean Corpuscular Hemoglobin 32.8 pg (27-33); Mean Corpuscular Volume 97.2 fl (82-101); Mean Platelet Volume 10.4 fL (7.4-10.4); Monocytes % 7.8 %; Neutrophils # 9.91 10^3/uL (1.8-7.7); Neutrophils % 79.2 %; Nucleated Red Blood Cells % 0 %; Platelet Count 131 10^3/cmm (157-399); Red Blood Count 3.51 10^6/uL (3.85-5.65); Red Cell Distribution Width 13.2 % (12.1-15.1); White Blood Count 12.52 10^3/uL (3.29-11.43)
[2023-05-24 02:54] LABS: Alanine Aminotransferase 19 U/L (0-41); Albumin Level 3.3 g/dL (3.5-5.2); Alkaline Phosphatase 77 U/L (40-130); Anion Gap 11.5 (5-19); Aspartate Amino Transferase 39 U/L (0-40); Blood Urea Nitrogen 15 mg/dL (8-23); Calcium 7.9 mg/dL (8.5-10.5); Carbon Dioxide 25 mmol/L (22-29); Chloride 108 mmol/L (98-107); Globulin 2.1 g/dL (1.3-4.6); Glomerular Filtration Rate 73.9 mL/min (90-130); Glucose 117 mg/dL (65-115); Magnesium 1.8 mg/dL (1.7-2.3); Osmolality Calculated 294 mOsm/kg (285-295); Potassium 3.5 mmol/L (3.5-5.1); Sodium 141 mmol/L (136-145); Total Bilirubin 1.9 mg/dL (0.15-1.2); Total Protein 5.4 g/dL (6.6-8.7)
--- NOTE | 2023-05-24 07:00 | ECG_ITS ---
[facility] Test Date: 2023-05-24 Pat Name: Herb Chanel Department: Room: ICU11 Gender: Male Pilot Captain: : 1950 Requested By: Nahun King Order Number: [id number] Meryl MD: Hong Romero M.D. Measurements Intervals [place] Rate: 57 P: 0 MI: 0 QRS: 19 QRSD: 99 T: 29 QT: 427 QTc: 418 Interpretive Statements SINUS RHYTHM WITH JUNCTIONAL ESCAPE RHYTHM AND PVCs Compared to ECG 05/23/2023 14:01:39 Ventricular premature complex(es) now present Aberrant conduction of supraventricular beat(s) now present Short MI interval no longer present ST (T wave) deviation still present Electronically Signed On 05-24-2023 20:34:20 CDT by Hong Romero M.D. [id number]
[2023-05-24] MEDS: sodium chloride 0.9% 1,000 ML 100 ML IV ×2 (07:43→19:53)
--- NOTE | 2023-05-24 10:28 | PM.PN ---
Subjective Subjective: Patient is doing well. Still having febile episodes. No significant arrhythmias Vitals/I&O/Wt Last Vital Signs Temp 99.1 F 05/24/23 10:00 Pulse 72 05/24/23 10:00 Resp 30 H 05/24/23 10:00 BP 101/54 05/24/23 10:00 Pulse Ox 97 05/24/23 10:00 O2 Del Method Room Air 05/24/23 10:00 O2 Flow Rate 2 05/24/23 08:00 05/23/23 05/24/23 05/24/23 22:59 06:59 14:59 Intake Total 1958.75 / 3108.75 641.25 / 3750.00 400 / 400 Balance 1958.75 / 3108.75 641.25 / 3750.00 400 / 400 Weight last 48 hrs Weight 220 lb Physical Exam Narrative: GENERAL: Patient is alert, awake and oriented x3. [] NECK: No jugular vein distension. [] HEENT: No cyanosis. No icterus. No pallor. [] HEART: Regular S1 and S2. No murmur, rub or gallop. [] LUNGS: Clear to auscultate bilaterally. [] CENTRAL NERVOUS SYSTEM: Grossly nonfocal. [] EXTREMITIES: Lower extremities with 1+ edema bilaterally. Pulses palpable in the lower extremities, both dorsalis pedis and posterior tibial. [] Data 05/25/23 04:08 05/25/23 04:08 Micro: Microbiology 05/23/23 07:18 Blood Culture - Preliminary Blood NEGATIVE TO DATE 05/23/23 07:11 Blood Culture - Preliminary Blood NEGATIVE TO DATE 05/23/23 08:52 Urine Culture - Preliminary Urine,Clean Catch A&P Assessment and plan (1) 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: (2) ASHD (arteriosclerotic heart disease): (3) Dyslipidemia: (4) Complicated UTI (urinary tract infection): Plan Patient still has on and off for febrile episodes. We will continue telemetry monitoring for now. At time of discharge will need LifeVest. Possible event monitor as well. Outpatient EP referral for possible EP study and ICD placement. He has ongoing infection. Close temperature monitoring and control. ECHO showed normal LV systolic function Thank you for involving us with care of this patient. We will continue to follow. Please call with questions. Attestations Medical Necessity Statement*: Care expected to cross 2 midnights. Coding Level of Care Code Acute Code for [facility] Fwd Diagnoses 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 I49.8 ASHD (arteriosclerotic heart disease) I25.10 Dyslipidemia E78.5 Complicated UTI (urinary tract infection) N39.0
[2023-05-24] MEDS: enoxaparin 40 mg/0.4 mL Syringe SUBCUT (12:49)
[2023-05-24 14:16] LABS: Iron 29 ug/dL (59-158); Percent Saturation 17.3 % (20-50); Total Iron Binding Capacity 167 mcg/dl; Unsaturated Iron Binding 138 ug/dL (112-347)
[2023-05-24 14:32] LABS: Procalcitonin 32.45 ng/mL (0-0.5); Vitamin B12 336 pg/mL (232-1245)
--- NOTE | 2023-05-24 17:13 | P.PN_ITS ---
Subjective Subjective: Hospital course, labs appreciated. On examination today patient sitting up in chair talking on phone. States feeling better though still pretty weak. Continues to remain on room air. Tmax documented yesterday afternoon of 105 Fahrenheit no fever since 5 PM. Has remained hemodynamically stable and afebrile with occasional bradycardia with heart rate down to 50s Blood work appreciated for leukocytosis with white count of 12.5, stable hemoglobin, CMP stable with calcium of 7.9, bilirubin of 1.9, appreciate urinalysis, urine cultures growing gram-negative rods. Vitals/I&O/Wt Last Vital Signs Temp 99.3 F 05/24/23 13:00 Pulse 50 L 05/24/23 14:00 Resp 21 H 05/24/23 13:00 BP 123/76 05/24/23 13:00 Pulse Ox 96 05/24/23 13:00 O2 Del Method Room Air 05/24/23 13:00 O2 Flow Rate 2 05/24/23 08:00 05/24/23 05/24/23 05/24/23 06:59 14:59 22:59 Intake Total 641.25 / 3750.00 650 / 650 Balance 641.25 / 3750.00 650 / 650 Weight last 48 hrs Weight 99.79 kg Physical Exam Narrative: General exam is a white male, no distress HEENT: Atraumatic and normocephalic. Oropharynx clear. Neck is supple no lymphadenopathy thyromegaly Cardiovascular regular rate and rhythm without murmur, no S3 or S4 Lungs clear no wheezing or crackles Abdomen soft. Nontender. No obvious organomegaly. exams deferred Extremities trace edema bilaterally. No cyanosis or clubbing Skin no rash Neuro no focal deficits Data 05/24/23 02:21 05/24/23 02:21 Micro: Microbiology 05/23/23 08:52 Urine Culture - Preliminary Urine,Clean Catch Gram Negative Rods 05/23/23 07:18 Blood Culture - Preliminary Blood NEGATIVE TO DATE 05/23/23 07:11 Blood Culture - Preliminary Blood NEGATIVE TO DATE A&P Assessment and plan (1) Complicated UTI (urinary tract infection): Cannot rule out prostatitis. Urine culture growing gram-negative rods. Blood cultures so far negative. Continue with IV Zosyn. De-escalate as per culture results. Continue with Flomax 0.4 mg daily. Tylenol as needed for fever. (2) Hypokalemia: Replete 40 mEq oral. Target potassium around 4. (3) 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: With episode of syncope yesterday. Monitor magnesium and potassium. Keep magnesium around 2 and potassium around 4. Replete accordingly. Appreciate cardiology recommendations. As patient did not have syncope while on telemetry cannot be sure of syncope was in setting of arrhythmia. If patient remains stable plan for discharge with LifeVest with outpatient referral for EP physician. Echocardiogram pending. (4) Syncope: CT head ruled out stroke. Appreciate CTA head and neck results. Most likely in setting of Brugada pattern seen on EKG. Continue to monitor. (5) Acute prostatitis: (6) ASHD (arteriosclerotic heart disease): Patient with history of coronary disease. Secondary to abnormal EKG troponin will be checked x1. Continue aspirin, atorvastatin. Plan History of hypertension, continue lisinopril Cardiac diet Full code Lovenox for DVT prophylaxis Continue with ICU care. Attestations Medical Necessity Statement*: Requires further hospitalization for management of complicated cystitis/pr ostatitis, syncope in setting of Brugada syndrome on EKG while patient is monitored for the and blood cultures and urine cultures are followed Diagnoses Complicated UTI (urinary tract infection) N39.0 Hypokalemia E87.6 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 I49.8 Syncope R55 Acute prostatitis N41.0 ASHD (arteriosclerotic heart disease) I25.10
[2023-05-24] MEDS: potassium chloride ER 20 mEq Tablet 40 MEQ PO (17:51)
[2023-05-24] MEDS: magnesium sulfate premix 2 GM/50 ML PIGGYBACK IV (17:54)
--- NOTE | 2023-05-24 18:12 | PC.NURSE ---
SHift SUmmary: Uneventful shift. Patient was up to a recliner for the whole shift. Walked 3 times in hallway, about 300 feet each time. Heart rhythm has been a mix of Sinus rhythm, sinus ama, occaisonal slight pauses and occasional PAC.
--- NOTE | 2023-05-24 20:12 | PC.NURSE ---
Walked 5 laps around nurses station, tolerated well. Returned to room and assisted to bed.
[2023-05-24] MEDS: aspirin 81 mg EC Tablet PO (20:22)
[2023-05-24] MEDS: tamsulosin 0.4 mg Capsule PO (20:22)
[2023-05-24] MEDS: atorvastatin 40 mg Tablet 80 MG PO (20:22)
[2023-05-24] MEDS: lisinopril 20 mg Tablet PO (20:23)
[2023-05-25] VITALS (13 sets, daily range): BP systolic 119–162; BP diastolic 63–87; PULSE 50–64; RESP 18–33; TEMP 36.9–37; O2SAT 90–98
--- NOTE | 2023-05-25 02:52 | PC.NURSE ---
Sitting up in chair at bedside, reports feeling much better this morning.
[2023-05-25 04:49] LABS: Basophils % 0.3 %; Eosinophils # 0.1 10^3/uL (0.0-0.8); Eosinophils % 0.7 %; Hematocrit 34.1 % (37-53); Lymphocytes # 1.1 10^3/uL (0.8-4.8); Lymphocytes % 12.8 %; Mean Corpuscular HGB Conc 33.4 g/dL (30-55); Mean Corpuscular Hemoglobin 32.7 pg (27-33); Mean Corpuscular Volume 97.7 fl (82-101); Monocytes # 0.8 10^3/uL (0.2-0.9); Monocytes % 8.8 %; Neutrophils # 6.73 10^3/uL (1.8-7.7); Neutrophils % 77.1 %; Nucleated Red Blood Cells % 0 %; Platelet Count 130 10^3/cmm (157-399); Red Blood Count 3.49 10^6/uL (3.85-5.65); Red Cell Distribution Width 13.1 % (12.1-15.1); White Blood Count 8.74 10^3/uL (3.29-11.43)
[2023-05-25 05:15] LABS: HDL Cholesterol 26 mg/dL (60-100); Triglycerides 137 mg/dL (0-150); VLDL Cholestrol Calculation 27 mg/dL (0-30)
[2023-05-25 05:16] LABS: Estmated Average Glucose 94; Hemoglobin A1C 4.9 % (4.0-6.0)
[2023-05-25 05:21] LABS: Alanine Aminotransferase 25 U/L (0-41); Albumin Level 3.1 g/dL (3.5-5.2); Alkaline Phosphatase 70 U/L (40-130); Anion Gap 10.4 (5-19); Aspartate Amino Transferase 51 U/L (0-40); Blood Urea Nitrogen 12 mg/dL (8-23); Calcium 7.8 mg/dL (8.5-10.5); Carbon Dioxide 25 mmol/L (22-29); Chloride 109 mmol/L (98-107); Globulin 2.5 g/dL (1.3-4.6); Glomerular Filtration Rate 66.2 mL/min (90-130); Glucose 96 mg/dL (65-115); Osmolality Calculated 292 mOsm/kg (285-295); Potassium 3.4 mmol/L (3.5-5.1); Sodium 141 mmol/L (136-145); Total Bilirubin 1.6 mg/dL (0.15-1.2); Total Protein 5.6 g/dL (6.6-8.7)
[2023-05-25 05:31] LABS: Folate Level > 20.0 ng/mL (4.5-32.2)
[2023-05-25 05:33] LABS: Chol HDL Ratio 4.15 mg/dL (1.0-5.00); Cholesterol 108 mg/dL (0-200); LDL Cholesterol Calculated 55 mg/dL (50-129)
[2023-05-25] MEDS: sodium chloride 0.9% 1,000 ML 100 ML IV (06:10)
--- NOTE | 2023-05-25 06:12 | PC.NURSE ---
Assisted to chair at bedside, tolerated well.
[2023-05-25] MEDS: piperacillin-tazobactam 3.375 GM in sodium chloride 0.9% (plus) 50 ML IV (08:41)
--- NOTE | 2023-05-25 10:11 | PM.PN ---
Subjective Subjective: Patient is stable. Awaiting lifevest. last febrile episode was at 1pm yesterday Vitals/I&O/Wt Last Vital Signs Temp 98.6 F 05/25/23 04:00 Pulse 60 05/25/23 08:00 Resp 25 H 05/25/23 08:00 BP 154/87 05/25/23 08:00 Pulse Ox 97 05/25/23 08:00 O2 Del Method Room Air 05/25/23 08:00 O2 Flow Rate 2 05/24/23 08:00 05/24/23 05/25/23 05/25/23 22:59 06:59 14:59 Intake Total 1500 / 2150 1250 / 3400 Balance 1500 / 2150 1250 / 3400 Physical Exam Narrative: GENERAL: Patient is alert, awake and oriented x3. [] NECK: No jugular vein distension. [] HEENT: No cyanosis. No icterus. No pallor. [] HEART: Regular S1 and S2. No murmur, rub or gallop. [] LUNGS: Clear to auscultate bilaterally. [] CENTRAL NERVOUS SYSTEM: Grossly nonfocal. [] EXTREMITIES: Lower extremities with 1+ edema bilaterally. Pulses palpable in the lower extremities, both dorsalis pedis and posterior tibial. [] Data 05/25/23 04:08 05/25/23 04:08 Micro: Microbiology 05/23/23 08:52 Urine Culture - Final Urine,Clean Catch Escherichia coli 05/24/23 08:52 Bacterial Antigens - Final Urine Kidney 05/23/23 07:18 Blood Culture - Preliminary Blood NEGATIVE TO DATE 05/23/23 07:11 Blood Culture - Preliminary Blood NEGATIVE TO DATE A&P Assessment and plan (1) 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: (2) ASHD (arteriosclerotic heart disease): (3) Dyslipidemia: (4) Complicated UTI (urinary tract infection): Plan Patient did not have febrile episodes since yesterday 1 PM. Continue antibiotics per primary team recommendations. Awaiting LifeVest. Outpatient EP referral for possible EP study and ICD placement if needed. ECHO showed normal LV systolic function Thank you for involving us with care of this patient. We will continue to follow. Please call with questions. Attestations Medical Necessity Statement*: Care expected to cross 2 midnights. Coding Level of Care Code Acute Code for Chg Fwd Diagnoses 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 I49.8 ASHD (arteriosclerotic heart disease) I25.10 Dyslipidemia E78.5 Complicated UTI (urinary tract infection) N39.0
[2023-05-25] MEDS: cefTRIAXone 1,000 MG in sodium chloride 0.9% (plus) 50 ML 100 MG IV (12:05)
[2023-05-25] MEDS: potassium chloride ER 20 mEq Tablet 40 MEQ PO (12:06)
[2023-05-25] MEDS: enoxaparin 40 mg/0.4 mL Syringe SUBCUT (12:06)
--- NOTE | 2023-05-25 14:16 | PC.NURSE ---
Report given to Ana Maria KERN over the phone. Will transfer pt via wheelchair to [facility].
--- NOTE | 2023-05-25 14:42 | PC.NURSE ---
pt transferred to [facility] with family via wheelchair. bedside report given to Ana Maria KERN
--- NOTE | 2023-05-25 15:02 | P.PN_ITS ---
Subjective Subjective: No acute events overnight. Patient states he is feeling a lot better today. States he had a good night sleep and after that he is feeling back to normal. States not feeling weak anymore and appetite is improved. Hemodynamically remained stable on room air. Has remained afebrile for more than 24 hours. Blood work appreciated for resolution of leukocytosis, BMP stable with mild hypokalemia with potassium 3.4 Vitals/I&O/Wt Last Vital Signs Temp 98.6 F 05/25/23 10:00 Pulse 62 05/25/23 12:00 Resp 25 H 05/25/23 12:00 BP 151/77 05/25/23 12:00 Pulse Ox 97 05/25/23 12:00 O2 Del Method Room Air 05/25/23 12:00 O2 Flow Rate 2 05/24/23 08:00 05/25/23 05/25/23 05/25/23 06:59 14:59 22:59 Intake Total 1250 / 3400 240 / 240 Balance 1250 / 3400 240 / 240 Physical Exam Narrative: General exam is a white male, no distress HEENT: Atraumatic and normocephalic. Oropharynx clear. Neck is supple no lymphadenopathy thyromegaly Cardiovascular regular rate and rhythm without murmur, no S3 or S4 Lungs clear no wheezing or crackles Abdomen soft. Nontender. No obvious organomegaly. exams deferred Extremities trace edema bilaterally. No cyanosis or clubbing Skin no rash Neuro no focal deficits Data 05/25/23 04:08 05/25/23 04:08 Micro: Microbiology 05/23/23 08:52 Urine Culture - Final Urine,Clean Catch Escherichia coli 05/24/23 08:52 Bacterial Antigens - Final Urine Kidney A&P Assessment and plan (1) Complicated UTI (urinary tract infection): Cannot rule out prostatitis. Urine culture growing E. coli, pansensitive. Blood cultures so far negative. De-escalate from IV Zosyn to IV ceftriaxone. Most likely can discharge on oral Levaquin for 7 more days with concerns for prostatitis. Continue with Flomax 0.4 mg daily. Tylenol as needed for fever. (2) Hypokalemia: Replete 40 mEq oral. Target potassium around 4. (3) 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: With episode of syncope yesterday. Monitor magnesium and potassium. Keep magnesium around 2 and potassium around 4. Replete accordingly. Appreciate cardiology recommendations. As patient did not have syncope while on telemetry cannot be sure of syncope was in setting of arrhythmia. If patient remains stable plan for discharge with LifeVest with outpatient referral for EP physician. Echocardiogram shows normal EF up to 55 to 60%, grade 1 diastolic dysfunction mild MR and mild TR. Patient having frequent PVCs. Monitor electrolytes. Patient would benefit from a possible event monitor as per cardiology. Plan to discharge with LifeVest and event monitor. (4) Syncope: CT head ruled out stroke. Appreciate CTA head and neck results. Most likely in setting of Brugada pattern seen on EKG. Continue to monitor. (5) Acute prostatitis: (6) ASHD (arteriosclerotic heart disease): Patient with history of coronary disease. No active chest pain. Troponin cycled and negative. Continue aspirin, atorvastatin. Plan History of hypertension, continue lisinopril Cardiac diet Full code Lovenox for DVT prophylaxis Transfer to [facility]. Attestations Medical Necessity Statement*: Requires further hospitalization for management of complicated cystitis, syncope in setting of Brugada pattern on EKG with frequent VPCs while LifeVest is arranged Diagnoses Complicated UTI (urinary tract infection) N39.0 Hypokalemia E87.6 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 I49.8 Syncope R55 Acute prostatitis N41.0 ASHD (arteriosclerotic heart disease) I25.10
[2023-05-25] MEDS: tamsulosin 0.4 mg Capsule PO (21:05)
[2023-05-25] MEDS: aspirin 81 mg EC Tablet PO (21:05)
[2023-05-25] MEDS: atorvastatin 40 mg Tablet 80 MG PO (21:05)
[2023-05-25] MEDS: lisinopril 20 mg Tablet PO (21:05)
[2023-05-26 03:26] VITALS: BP 140/83; PULSE 55; RESP 20; O2SAT 96
[2023-05-26 04:00] VITALS: BP 140/83; PULSE 46; RESP 23; O2SAT 96
[2023-05-26 06:00] VITALS: PULSE 55
[2023-05-26 07:44] VITALS: BP 150/78; PULSE 58; RESP 27; TEMP 36.9; O2SAT 96
--- NOTE | 2023-05-26 07:44 | PM.PN ---
Subjective Subjective: Patient is overall stable. No significant VT. Vitals/I&O/Wt Last Vital Signs Temp 98.5 F 05/25/23 23:30 Pulse 55 L 05/26/23 06:00 Resp 23 H 05/26/23 04:00 BP 140/83 05/26/23 04:00 Pulse Ox 96 05/26/23 04:00 O2 Del Method Room Air 05/26/23 04:00 O2 Flow Rate 2 05/24/23 08:00 05/25/23 05/26/23 05/26/23 22:59 06:59 14:59 Intake Total 50 / 290 1050 / 1340 Balance 50 / 290 1050 / 1340 Physical Exam Narrative: GENERAL: Patient is alert, awake and oriented x3. [] NECK: No jugular vein distension. [] HEENT: No cyanosis. No icterus. No pallor. [] HEART: Regular S1 and S2. No murmur, rub or gallop. [] LUNGS: Clear to auscultate bilaterally. [] CENTRAL NERVOUS SYSTEM: Grossly nonfocal. [] EXTREMITIES: Lower extremities with 1+ edema bilaterally. Pulses palpable in the lower extremities, both dorsalis pedis and posterior tibial. [] Data 05/25/23 04:08 05/25/23 04:08 Micro: Microbiology 05/23/23 08:52 Urine Culture - Final Urine,Clean Catch Escherichia coli A&P Assessment and plan (1) Syncope: (2) 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: (3) Dyslipidemia: (4) Complicated UTI (urinary tract infection): Plan Patient is stable. No more febrile episodes. LifeVest will be put on today. Patient has requested referral to [facility]. We will send referral to EP team there for evaluation, possible EP study to assess need for ICD placement. Thank you for involving us with care of this patient. Patient is stable to be discharged from cardiology standpoint after LifeVest placement. Please call with questions. Attestations Medical Necessity Statement*: Care expected to cross 2 midnights. Coding Level of Care Code Acute Code for Chg Fwd Diagnoses Syncope R55 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 I49.8 Dyslipidemia E78.5 Complicated UTI (urinary tract infection) N39.0
--- NOTE | 2023-05-26 09:11 | PM.DCS ---
Discharge Providers Date of Admission: 05/24/23 13:10 Date of Discharge: May 26, 2023 Attending Provider at Admission: Nahun King MD Attending Provider at Discharge: Hu Nogueira DO Consults: Cardiology Primary Care Provider: Obtain new PCP. Diagnoses at Discharge Discharge Diagnosis (1) 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: Status: Acute (2) ASHD (arteriosclerotic heart disease): Status: Acute (3) Dyslipidemia: Status: Acute (4) Complicated UTI (urinary tract infection): Status: Acute Reason for Visit Reason for Visit: rash Brief History: Patient presented to the hospital with fever urinating chills sweats nausea and retching. He was found to have a UTI and admitted to the hospital. Hospital Course Hospital Course Patient was placed on antibiotics for UTI or possible prostatitis. He experienced a syncopal episode and cardiology was consulted. Patient displayed Brugada pattern on EKG. His magnesium and potassium were replaced as indicated with goals of magnesium 2 and potassium 4. His echocardiogram showed an normal EF of 55 to 60% with grade 1 diastolic dysfunction mild MR mild TR. Patient was having frequent PVCs. Cardiology recommended an event monitor. He also recommended a LifeVest Patient will be discharged on Levaquin to complete a 7-day course total. He will be placed on LifeVest for discharge. The event monitor will likely be placed as an outpatient. Physical Exam Narrative: Elderly white male in no acute distress at time of examination neurologic alert and oriented x4 nonfocal. Heart regular rate and rhythm with occasional bradycardia. No loud cardiac murmur. Lungs clear to auscultation without wheezes rales or rhonchi abdomen soft nontender nondistended positive bowel sounds extremities no clubbing cyanosis or edema Discharge Data Studies Completed and Pending Completed Studies During Hospitalization Category Date Time Status CT angio headneck* 31231/[id number] Routine Cat Scan 05/23/[address] head wo con* [id number] Stat Cat Scan 05/23/23 13:[address] kidney stone [id number] Stat Cat Scan 05/23/23 09:41 Completed XR chest 1V portable [id number] Stat Exams 05/23/23 06:59 Completed CV. echo complete* [id number] Routine Ultrasound 05/23/23 Completed Pending at discharge Category Date Time Status Blood Culture Stat Lab 05/23/23 07:18 Results Laboratory Results WBC 8.74 10^3/uL (3.29-11.43) 05/25/23 04:08 RBC 3.49 10^6/uL (3.85-5.65) L 05/25/23 04:08 Hgb 11.40 g/dL (11.27-16.99) 05/25/23 04:08 Hct 34.1 % (37-53) L 05/25/23 04:08 MCV 97.7 fl (82-101) 05/25/23 04:08 MCH 32.7 pg (27-33) 05/25/23 04:08 MCHC 33.4 g/dL (30-55) 05/25/23 04:08 RDW 13.1 % (12.1-15.1) 05/25/23 04:08 Plt Count 130 10^3/cmm (157-399) L 05/25/23 04:08 MPV 11.0 fL (7.4-10.4) H 05/25/23 04:08 Neut % (Auto) 77.1 % 05/25/23 04:08 Lymph % (Auto) 12.8 % 05/25/23 04:08 [place] % (Auto) 8.8 % 05/25/23 04:08 Eos % (Auto) 0.7 % 05/25/23 04:08 Baso % (Auto) 0.3 % 05/25/23 04:08 Neut # (Auto) 6.73 10^3/uL (1.8-7.7) 05/25/23 04:08 Lymph # (Auto) 1.1 10^3/uL (0.8-4.8) 05/25/23 04:08 [place] # (Auto) 0.8 10^3/uL (0.2-0.9) 05/25/23 04:08 Eos # (Auto) 0.1 10^3/uL (0.0-0.8) 05/25/23 04:08 Baso # (Auto) 0.0 10^3/uL (0.0-0.1) 05/25/23 04:08 Nucleated RBC % (auto) 0 % 05/25/23 04:08 Nucleated RBCs # 0.0 /100WBC 05/25/23 04:08 Sodium 141 mmol/L (136-145) 05/25/23 04:08 Potassium 3.4 mmol/L (3.5-5.1) L 05/25/23 04:08 Chloride 109 mmol/L (98-107) H 05/25/23 04:08 Carbon Dioxide 25 mmol/L (22-29) 05/25/23 04:08 Anion Gap 10.4 (5-19) 05/25/23 04:08 BUN 12 mg/dL (8-23) 05/25/23 04:08 Creatinine 1.1 mg/dL (0.7-1.2) 05/25/23 04:08 GFR Calculation 66.2 mL/min (90-130) L 05/25/23 04:08 Glucose 96 mg/dL (65-115) 05/25/23 04:08 POC Glucose 98 mg/dL (70-110) 05/23/23 13:03 Estimat Average Glucose 94 05/25/23 04:08 Hemoglobin A1c 4.9 % (4.0-6.0) 05/25/23 04:08 Calculated Osmolality 292 mOsm/kg (285-295) 05/25/23 04:08 Lactic Acid 2.8 mmol/L (0.5-2.2) H 05/23/23 07:11 Lactic Acid (Sepsis) 1.2 mmol/L (0.5-2.2) 05/23/23 10:13 Calcium 7.8 mg/dL (8.5-10.5) L 05/25/23 04:08 Magnesium 1.8 mg/dL (1.7-2.3) 05/24/23 02:21 Iron 29 ug/dL (59-158) L 05/24/23 02:21 TIBC 167 mcg/dl 05/24/23 02:21 % Saturation 17.3 % (20-50) L 05/24/23 02:21 Unsat Iron Binding 138 ug/dL (112-347) 05/24/23 02:21 Total Bilirubin 1.6 mg/dL (0.15-1.2) H 05/25/23 04:08 AST 51 U/L (0-40) H 05/25/23 04:08 ALT 25 U/L (0-41) 05/25/23 04:08 Alkaline Phosphatase 70 U/L (40-130) 05/25/23 04:08 Troponin T Gen 5 ng/L 46 ng/L (0-15) H 05/23/23 14:57 Total Protein 5.6 g/dL (6.6-8.7) L 05/25/23 04:08 Albumin 3.1 g/dL (3.5-5.2) L 05/25/23 04:08 Globulin 2.5 g/dL (1.3-4.6) 05/25/23 04:08 Triglycerides 137 mg/dL (0-150) 05/25/23 04:08 Cholesterol 108 mg/dL (0-200) 05/25/23 04:08 LDL Cholesterol, Calc 55 mg/dL (50-129) 05/25/23 04:08 Total VLDL Cholesterol 27 mg/dL (0-30) 05/25/23 04:08 HDL Cholesterol 26 mg/dL (60-100) L 05/25/23 04:08 Cholesterol/HDL Ratio 4.15 mg/dL (1.0-5.00) 05/25/23 04:08 Vitamin B12 336 pg/mL (232-1245) 05/24/23 02:21 Folate > 20.0 ng/mL (4.5-32.2) 05/25/23 04:08 Procalcitonin 32.45 ng/mL (0-0.5) H 05/24/23 02:21 TSH 1.67 uIU/mL (0.27-4.20) 05/23/23 07:11 Urine Color Yellow (Yellow) 05/23/23 08:52 Urine Appearance Clear (CLEAR) 05/23/23 08:52 Urine pH 8 (5-7) H 05/23/23 08:52 Ur Specific [place] 1.015 (1.005-1.030) 05/23/23 08:52 Urine Protein Neg (Negative) 05/23/23 08:52 Urine Glucose (UA) Norm (Normal) 05/23/23 08:52 Urine Ketones Negative (Negative) 05/23/23 08:52 Urine Blood 2+ (Negative) H 05/23/23 08:52 Urine Nitrate Positive (Negative) H 05/23/23 08:52 Urine Bilirubin Neg (Negative) 05/23/23 08:52 Prot Sulfosalicylic Acd Negative (Negative) 05/23/23 08:52 Urine Urobilinogen Norm mg/dL (Negative) 05/23/23 08:52 Ur Leukocyte Esterase 2+ (Negative) H 05/23/23 08:52 Urine RBC 0-4 /hpf (0-2) H 05/23/23 08:52 Urine WBC >100 /hpf (0-5) H 05/23/23 08:52 Ur Squamous Epith Cells 0-4 /hpf (0-5) H 05/23/23 08:52 Amorphous Sediment Not Reportable 05/23/23 08:52 Urine Bacteria 2+ /hpf (NONE) H 05/23/23 08:52 Urine Mucus Trace /hpf 05/23/23 08:52 Coronavirus 229E (PCR) Not detected (NOT DETECT) 05/23/23 08:17 Influenza Type A Ag negative (Negative) 05/23/23 08:17 Influenza Type B Ag negative (Negative) 05/23/23 08:17 SARS-CoV-2 (PCR) Not detected (NOT DETECT) 05/23/23 08:17 Vitals Last Vital Signs Temp 98.5 F 05/26/23 07:44 Pulse 58 L 05/26/23 07:44 Resp 27 H 05/26/23 07:44 BP 150/78 05/26/23 07:44 Pulse Ox 96 05/26/23 07:44 O2 Del Method Room Air 05/26/23 04:00 O2 Flow Rate 2 05/24/23 08:00 Discharge Plan Discharge Patient Disposition: Home Condition: Stable Prescriptions: New tamsulosin 0.4 mg Capsule 0.4 mg PO BEDTIME Qty: 30 0RF levofloxacin 750 mg Tablet 750 mg PO QAM Qty: 6 0RF Continued aspirin 81 mg tablet,delayed release (DR/EC) 81 mg PO BEDTIME multivitamin Tablet 1 tab PO BEDTIME atorvastatin 80 mg tablet 80 mg PO BEDTIME lisinopril 20 mg tablet 20 mg PO BEDTIME Discharge Orders: Discharge Order (Routine); Ordered 05/26/23 Ordered By: Hu Nogueira Other Ambulatory Orders: MCT/Event Monitor 30 Days (Routine) Timeframe: 1 Week Facility: [facility] - Location: Radiology Ordered By: Hu Nogueira Referrals: Herber Hernandez MD [Physician] - 05/30/23 8:55 am (This will be a new patient appointment to establish a Primary care provider.) Lainey Rebollar FNP [Nurse Practitioner] - Discharge Diet: Cardiac Discharge Activity: Increase activity as tolerated Patient Instructions: Lisinopril (By mouth), Atorvastatin (By mouth), Levofloxacin (By mouth) (Levaquin, Levaquin Leva-zayda), Tamsulosin (By mouth) (Flomax), Urinary Tract Infection in Men (DC), Syncope (DC), Prostatitis (Acute) Activity Restrictions/Additional Instructions: Life vest. If event monitor not placed they will call you when one is available. You have a follow up appointment set up with VOLODYMYR Huff at [facility] in the Medical Office Building on June 05 at 10:15 A.M. If you are unable to keep this appointment and need to reschedule, please call their office at [phone]. Discharge Attestations Time Spent in Discharge Care*: less than 30 min Quality Metrics Clinical Quality Measures [ No reported AMI, CVA or VTE this stay] Coding Level of Care Code Acute Code for Chg Fwd Diagnoses 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 I49.8 ASHD (arteriosclerotic heart disease) I25.10 Dyslipidemia E78.5 Complicated UTI (urinary tract infection) N39.0
[2023-05-26] MEDS: levoFLOXacin 750 mg Tablet PO (10:27)
[2023-05-26 12:23] VITALS: BP 150/78; PULSE 58; RESP 27; TEMP 36.9; O2SAT 96
--- NOTE | 2023-05-26 12:52 | PC.NURSE ---
Discharge Note Patient discharged to [home] via [ambulation to POV] accompanied by [family]. Discharge instructions reviewed with patient and/or field representatives director. Mobile pharmacy medications and/or prescriptions provided. Belongings/home medications returned.
== END 2023-05-26 12:45 | disposition home or self-care (01) | DRG 690 ==
LOC: ER 07:16 → MEDSURG 12:37 → ICU 15:49 → MEDSURG 19:26 → ICU 05-25 06:44 → CSU 05-25 14:52
PROVIDERS: Student in an Organized Health Care Education/Training Program; Admitting Provider Internal Medicine; Emergency Provider Family Medicine; Visit Provider Internal Medicine
DX: N39.0 Urinary tract infection, site not specified (principal); N41.0 Acute prostatitis; B96.20 Unspecified Escherichia coli [E. coli] as the cause of diseases classified elsewhere; I49.8 Other specified cardiac arrhythmias; Z79.82 Long term (current) use of aspirin; I25.10 Atherosclerotic heart disease of native coronary artery without angina pectoris; Z95.5 Presence of coronary angioplasty implant and graft; E78.5 Hyperlipidemia, unspecified; F41.9 Anxiety disorder, unspecified; E87.6 Hypokalemia
CPT/HCPCS: 36415; 36416; 70450; 70496; 70498; 71045; 74176; 80053; 80061; 81001; 82607; 82746; 82962; 83036; 83540; 83550; 83605; 83735; 84145; 84443; 84484; 85025; 86403; 87040; 87077; 87086; 87186; 87635; 87804; 93005; 93306; 96365; 96372; 96376; 99285; G0378; J0131; J0696; J1650; J2405; J2543; J3475; J7030; J7040; Q9967

== ENCOUNTER → 2023-06-05 10:15 | Outpatient (BNVA) | payer MEDICARE, OTHER, SELFPAY | PROVIDERS: PCP Family Medicine; Visit Provider Nurse Practitioner Family | DX: I49.8 Other specified cardiac arrhythmias (principal) | CPT/HCPCS: 99214 ==

== ENCOUNTER → 2023-08-07 15:47 | Outpatient (BNVA) | payer MEDICARE, OTHER, SELFPAY | PROVIDERS: PCP Family Medicine; Visit Provider Internal Medicine | DX: I25.10 Atherosclerotic heart disease of native coronary artery without angina pectoris (principal); I87.2 Venous insufficiency (chronic) (peripheral); E78.5 Hyperlipidemia, unspecified; Z98.61 Coronary angioplasty status; I48.91 Unspecified atrial fibrillation; Z79.82 Long term (current) use of aspirin | CPT/HCPCS: 99214 ==

== ENCOUNTER → 2024-02-09 09:43 | Outpatient (BNVA) | payer MEDICARE, OTHER, SELFPAY | PROVIDERS: PCP Family Medicine; Visit Provider Nurse Practitioner Family | DX: L57.0 Actinic keratosis (principal); L21.8 Other seborrheic dermatitis; D22.5 Melanocytic nevi of trunk; L81.4 Other melanin hyperpigmentation; L82.1 Other seborrheic keratosis | CPT/HCPCS: 17000; 99204 ==

== ENCOUNTER 2024-05-25 23:21 | Emergency (ER) | payer MEDICARE, OTHER, SELFPAY ==
[2024-05-25 23:28] VITALS: BP 150/82; PULSE 49; RESP 18; TEMP 36.6; O2SAT 97
--- NOTE | 2024-05-26 00:29 | ED_ITS ---
Documented by User: MIRI Nelson 05/26/24 00:42 HPI - Extremity Problem 2 General: Chief complaint: Wound/Laceration Stated complaint: injury thurs still open wound hot red sore Time Seen by Provider: 05/25/24 23:28 Source: patient Mode of arrival: ambulatory Limitations: no limitations History of Present Illness: Patient is a nice 73-year-old male presents to ED today with a complaint of cellulitis to his right lower extremity. Patient states he initially injured the extremity last week after he accidentally bumped the ortiz into something while at an airport. He states the area initially developed a hematoma and an abrasion that he kept clean and dressed. He states the hematoma resolved but then he began noticing some surrounding redness. He states he was seen at [facility] on Friday and placed on Clindamycin 300 mg twice daily. He states he has taken a total of 6 capsules and feels like his leg redness and swelling continues to worsen. No fevers or other systemic symptoms. He did note he was at the airport and had plane rides to [place], [place], and long drives in between. MD Complaint: extremity pain and extremity swelling Onset (ago): day(s) Location: right and lower extremity Radiation: none Relieving factors: nothing Exacerbating factors: nothing Associated symptoms: Deny chest pain or fever(s) Context: recent travel and immobilization Related Data Home Medications Medication Instructions Recorded Confirmed aspirin 81 mg tablet,delayed 81 mg PO BEDTIME 02/16/20 08/07/23 release atorvastatin 80 mg tablet 80 mg PO BEDTIME 05/23/23 08/07/23 lisinopril 20 mg tablet 20 mg PO BEDTIME 05/23/23 08/07/23 multivitamin 1 tab PO BEDTIME 05/23/23 08/07/23 Previous Rx's Medication Instructions Recorded levofloxacin 750 mg tablet 750 mg PO QAM #6 tabs 05/26/23 tamsulosin 0.4 mg capsule 0.4 mg PO BEDTIME #30 caps 05/26/23 sulfamethoxazole 800 2 tab PO BID 10 days #40 tabs 05/26/24 mg-trimethoprim 160 mg tablet (Bactrim DS) Allergies Allergy/AdvReac Type Severity Reaction Status Date / Time diphenhydramine Allergy ALGY-Fever Verified 05/25/24 23:35 [From Benadryl] Review of Systems 2 Const: Denies: fever(s), chills, body aches, fatigue or malaise Card: Denies: chest pain Resp: Denies: dyspnea Musc: Reports: extremity pain and extremity swelling; Denies: neck pain, back pain, joint pain or joint swelling Skin/Breast: Reports: erythema (R lower leg) Neuro: Denies: headache(s), numbness in extremities, weakness in extremities, sensory changes or dizziness PFSH ED 2 PFSH: Medical History Obesity Syncope 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 Acute prostatitis Hypokalemia Anxiety Venous insufficiency Dyslipidemia ASHD (arteriosclerotic heart disease) Surgical History S/P PTCA (percutaneous transluminal coronary angioplasty) Family History Father , AGE 64 CAD (coronary artery disease) Myocardial infarction Social History Smoking and tobacco/nicotine status: never used tobacco/nicotine Marital status: service: No Current occupational status: employed Physical Exam 2 Const: COMMON NORMALS: no acute distress, average body habitus, patient oriented x3, no limitations, healthy appearing, alert and well nourished G ENERAL APPEARANCE: cooperative ORIENTATION/CONSCIOUSNESS: Yes awake, Yes oriented to person, Yes oriented to place and Yes oriented to time Resp: COMMON NORMALS: normal respiratory effort Cardio: RATE: bradycardic Extremity: COMMON NORMALS: full ROM, capillary refill normal and no joint enlargement GENERAL: Yes normal exam except as noted RIGHT LOWER EXTREMITY: Yes lower leg OTHER: pt has an abrasion to lower anterior ortiz with surrounding cellulitis/warmth; there is obvious swelling to the R LE when compared to the L; no obvious calf pain/negative Sander's Neuro: COMMON NORMALS: patient oriented x3, moves all extremities, no focal motor deficits, no sensory deficits noted and gait normal S ENSORIUM/ORIENTATION: Yes alert, Yes oriented to person, Yes oriented to place and Yes oriented to time Course 2 ED course: Will do labs/give him a dose of IV antibiotics. US will be ordered due to the R LE swelling-most likely due to the cellulitis but has had multiple long plane/car rides recently along with injury/infection all risk factors for DVT. Care will be transferred to Dr. Haskins. VIDYA Vital Signs: Vital signs: Vital Signs Temperature 97.9 F 05/25/24 23:28 Pulse Rate 49 L 05/25/24 23:28 Respiratory Rate 18 05/25/24 23:28 Blood Pressure 150/82 05/25/24 23:28 Pulse Oximetry 97 05/25/24 23:28 MDM - Extremity (Nontraumatic) Lab Data 05/26/24 00:52 05/26/24 00:52 Laboratory Results WBC 9.14 10^3/uL (3.29-11.43) 05/26/24 00:52 RBC 4.29 10^6/uL (3.85-5.65) 05/26/24 00:52 Hgb 14.20 g/dL (11.27-16.99) 05/26/24 00:52 Hct 41.0 % (37-53) 05/26/24 00:52 MCV 95.6 fl (82-101) 05/26/24 00:52 MCH 33.1 pg (27-33) H 05/26/24 00:52 MCHC 34.6 g/dL (30-55) 05/26/24 00:52 RDW 12.8 % (12.1-15.1) 05/26/24 00:52 Plt Count 197 10^3/cmm (157-399) 05/26/24 00:52 MPV 10.6 fL (7.4-10.4) H 05/26/24 00:52 Neut % (Auto) 61.1 % 05/26/24 00:52 Lymph % (Auto) 27.5 % 05/26/24 00:52 [place] % (Auto) 8.0 % 05/26/24 00:52 Eos % (Auto) 2.4 % 05/26/24 00:52 Baso % (Auto) 0.7 % 05/26/24 00:52 Neut # (Auto) 5.59 10^3/uL (1.8-7.7) 05/26/24 00:52 Lymph # (Auto) 2.5 10^3/uL (0.8-4.8) 05/26/24 00:52 [place] # (Auto) 0.7 10^3/uL (0.2-0.9) 05/26/24 00:52 Eos # (Auto) 0.2 10^3/uL (0.0-0.8) 05/26/24 00:52 Baso # (Auto) 0.1 10^3/uL (0.0-0.1) 05/26/24 00:52 Nucleated RBC % (auto) 0 % 05/26/24 00:52 Nucleated RBCs # 0.0 /100WBC 05/26/24 00:52 Sodium 142 mmol/L (136-145) 05/26/24 00:52 Potassium 4.4 mmol/L (3.5-5.1) 05/26/24 00:52 Chloride 104 mmol/L (98-107) 05/26/24 00:52 Carbon Dioxide 28 mmol/L (22-29) 05/26/24 00:52 Anion Gap 14.4 (5-19) 05/26/24 00:52 BUN 15 mg/dL (8-23) 05/26/24 00:52 Creatinine 0.9 mg/dL (0.7-1.2) 05/26/24 00:52 GFR Calculation Not Reportable 05/26/24 00:52 Glucose 98 mg/dL (65-115) 05/26/24 00:52 Calculated Osmolality 295 mOsm/kg (285-295) 05/26/24 00:52 Calcium 9.4 mg/dL (8.5-10.5) 05/26/24 00:52 Total Bilirubin 0.5 mg/dL (0.15-1.2) 05/26/24 00:52 AST 24 U/L (0-40) 05/26/24 00:52 ALT 20 U/L (0-41) 05/26/24 00:52 Alkaline Phosphatase 121 U/L (40-130) 05/26/24 00:52 C-Reactive Protein 3.0 mg/L (0.0-4.9) 05/26/24 00:52 Total Protein 6.9 g/dL (6.6-8.7) 05/26/24 00:52 Albumin 4.2 g/dL (3.5-5.2) 05/26/24 00:52 Globulin 2.7 g/dL (1.3-4.6) 05/26/24 00:52 Discharge Plan Discharge Patient Disposition: Home Clinical Impression: Cellulitis Condition: Stable Prescriptions: New Bactrim DS 800-160 mg tablet 2 tab PO BID 10 Days Qty: 40 0RF No Action aspirin 81 mg tablet,delayed release (DR/EC) 81 mg PO BEDTIME multivitamin Tablet 1 tab PO BEDTIME atorvastatin 80 mg tablet 80 mg PO BEDTIME lisinopril 20 mg tablet 20 mg PO BEDTIME tamsulosin 0.4 mg Capsule 0.4 mg PO BEDTIME Qty: 30 0RF levofloxacin 750 mg Tablet 750 mg PO QAM Qty: 6 0RF Discharge Orders: Discharge ED (Routine); Ordered 05/26/24 Ordered By: Lisa Haskins Referrals: Herber Hernandez MD [Primary Care Provider] - Discharge Diet: Usual diet Discharge Activity: Increase activity as tolerated Patient Instructions: Cellulitis (ED) Activity Restrictions/Additional Instructions: Thank you for choosing [facility] for your healthcare needs today. Please realize this is an emergency room and that we are providing you with a medical screening exam and this may not be complete and all inclusive of all the testing and or work up that you may need to determine your ailment or severity of your illness. You have been screened and evaluated and felt safe for discharge. Health conditions do change or evolve sometimes and as such it is important that you follow up with your Primary Doctor to be re checked, 3-5 days is a general good time frame for follow up. You are always welcome to return to the ED for re assessment if your symptoms are worsening or you have new concerns Coding Level of Care Code ED Wind Energy Technician for Chg Fwd Documented by User: Lisa Haskins MD 05/26/24 02:14 HPI - Extremity Problem 2 General: Chief complaint: Wound/Laceration Stated complaint: injury thurs still open wound hot red sore Time Seen by Provider: 05/25/24 23:28 Related Data Home Medications Medication Instructions Recorded Confirmed aspirin 81 mg tablet,delayed 81 mg PO BEDTIME 02/16/20 08/07/23 release atorvastatin 80 mg tablet 80 mg PO BEDTIME 05/23/23 08/07/23 lisinopril 20 mg tablet 20 mg PO BEDTIME 05/23/23 08/07/23 multivitamin 1 tab PO BEDTIME 05/23/23 08/07/23 Previous Rx's Medication Instructions Recorded levofloxacin 750 mg tablet 750 mg PO QAM #6 tabs 05/26/23 tamsulosin 0.4 mg capsule 0.4 mg PO BEDTIME #30 caps 05/26/23 sulfamethoxazole 800 2 tab PO BID 10 days #40 tabs 05/26/24 mg-trimethoprim 160 mg tablet (Bactrim DS) Allergies Allergy/AdvReac Type Severity Reaction Status Date / Time diphenhydramine Allergy ALGY-Fever Verified 05/25/24 23:35 [From Benadryl] [facility] ED 2 PFS: Medical History Obesity Syncope 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 Acute prostatitis Hypokalemia Anxiety Venous insufficiency Dyslipidemia ASHD (arteriosclerotic heart disease) Surgical History S/P PTCA (percutaneous transluminal coronary angioplasty) Family History Father , AGE 64 CAD (coronary artery disease) Myocardial infarction Social History Smoking and tobacco/nicotine status: never used tobacco/nicotine Marital status: service: No Current occupational status: employed Course 2 Vital Signs: Vital signs: Vital Signs Temperature 97.9 F 05/25/24 23:28 Pulse Rate 49 L 05/25/24 23:28 Respiratory Rate 18 05/25/24 23:28 Blood Pressure 150/82 05/25/24 23:28 Pulse Oximetry 97 05/25/24 23:28 MDM - Extremity (Nontraumatic) Medical Decision Making Patient care transitioned to sd at shift change. Ultrasound lab work pending Lab work is unremarkable. No leukocytosis. No elevation in CRP. Renal function is normal. Labs were reviewed and interpreted by myself emergency room physician. Ultrasound of the lower extremity for DVT: This was negative. This was reviewed and interpreted by myself the emergency room physician. I also reviewed the radiology report. Assessment and plan: Cellulitis ? Patient was underdosed with clindamycin. Changing over to Bactrim at appropriate dosing levels. - Discharged home - Discussed plan with patient. Answered any questions. - Evaluation and treatment of this problem were appropriate in the emergency setting. Lab Data 05/26/24 00:52 05/26/24 00:52 Laboratory Results WBC 9.14 10^3/uL (3.29-11.43) 05/26/24 00:52 RBC 4.29 10^6/uL (3.85-5.65) 05/26/24 00:52 Hgb 14.20 g/dL (11.27-16.99) 05/26/24 00:52 Hct 41.0 % (37-53) 05/26/24 00:52 MCV 95.6 fl (82-101) 05/26/24 00:52 MCH 33.1 pg (27-33) H 05/26/24 00:52 MCHC 34.6 g/dL (30-55) 05/26/24 00:52 RDW 12.8 % (12.1-15.1) 05/26/24 00:52 Plt Count 197 10^3/cmm (157-399) 05/26/24 00:52 MPV 10.6 fL (7.4-10.4) H 05/26/24 00:52 Neut % (Auto) 61.1 % 05/26/24 00:52 Lymph % (Auto) 27.5 % 05/26/24 00:52 [place] % (Auto) 8.0 % 05/26/24 00:52 Eos % (Auto) 2.4 % 05/26/24 00:52 Baso % (Auto) 0.7 % 05/26/24 00:52 Neut # (Auto) 5.59 10^3/uL (1.8-7.7) 05/26/24 00:52 Lymph # (Auto) 2.5 10^3/uL (0.8-4.8) 05/26/24 00:52 [place] # (Auto) 0.7 10^3/uL (0.2-0.9) 05/26/24 00:52 Eos # (Auto) 0.2 10^3/uL (0.0-0.8) 05/26/24 00:52 Baso # (Auto) 0.1 10^3/uL (0.0-0.1) 05/26/24 00:52 Nucleated RBC % (auto) 0 % 05/26/24 00:52 Nucleated RBCs # 0.0 /100WBC 05/26/24 00:52 Sodium 142 mmol/L (136-145) 05/26/24 00:52 Potassium 4.4 mmol/L (3.5-5.1) 05/26/24 00:52 Chloride 104 mmol/L (98-107) 05/26/24 00:52 Carbon Dioxide 28 mmol/L (22-29) 05/26/24 00:52 Anion Gap 14.4 (5-19) 05/26/24 00:52 BUN 15 mg/dL (8-23) 05/26/24 00:52 Creatinine 0.9 mg/dL (0.7-1.2) 05/26/24 00:52 GFR Calculation Not Reportable 05/26/24 00:52 Glucose 98 mg/dL (65-115) 05/26/24 00:52 Calculated Osmolality 295 mOsm/kg (285-295) 05/26/24 00:52 Calcium 9.4 mg/dL (8.5-10.5) 05/26/24 00:52 Total Bilirubin 0.5 mg/dL (0.15-1.2) 05/26/24 00:52 AST 24 U/L (0-40) 05/26/24 00:52 ALT 20 U/L (0-41) 05/26/24 00:52 Alkaline Phosphatase 121 U/L (40-130) 05/26/24 00:52 C-Reactive Protein 3.0 mg/L (0.0-4.9) 05/26/24 00:52 Total Protein 6.9 g/dL (6.6-8.7) 05/26/24 00:52 Albumin 4.2 g/dL (3.5-5.2) 05/26/24 00:52 Globulin 2.7 g/dL (1.3-4.6) 05/26/24 00:52 All radiology interpretation(s) finalized by discharge Discharge Plan Discharge Patient Disposition: Home Clinical Impression: Cellulitis Condition: Stable Prescriptions: New Bactrim DS 800-160 mg tablet 2 tab PO BID 10 Days Qty: 40 0RF No Action aspirin 81 mg tablet,delayed release (DR/EC) 81 mg PO BEDTIME multivitamin Tablet 1 tab PO BEDTIME atorvastatin 80 mg tablet 80 mg PO BEDTIME lisinopril 20 mg tablet 20 mg PO BEDTIME tamsulosin 0.4 mg Capsule 0.4 mg PO BEDTIME Qty: 30 0RF levofloxacin 750 mg Tablet 750 mg PO QAM Qty: 6 0RF Discharge Orders: Discharge ED (Routine); Ordered 05/26/24 Ordered By: Lisa Haskins Referrals: Herber Hernandez MD [Primary Care Provider] - Discharge Diet: Usual diet Discharge Activity: Increase activity as tolerated Patient Instructions: Cellulitis (ED) Activity Restrictions/Additional Instructions: Thank you for choosing [facility] for your healthcare needs today. Please realize this is an emergency room and that we are providing you with a medical screening exam and this may not be complete and all inclusive of all the testing and or work up that you may need to determine your ailment or severity of your illness. You have been screened and evaluated and felt safe for discharge. Health conditions do change or evolve sometimes and as such it is important that you follow up with your Primary Doctor to be re checked, 3-5 days is a general good time frame for follow up. You are always welcome to return to the ED for re assessment if your symptoms are worsening or you have new concerns Coding Level of Care Code ED Wind Energy Technician for Leandra Anthony
--- NOTE | 2024-05-26 00:35 | USR_ITS ---
PROCEDURE INFORMATION: Exam: US Duplex Right Lower Extremity Veins, Limited Exam date and time: 05/26/2024 1:37 AM Age: 73 years old Clinical indication: Edema, localized; Lower extremity, right; Patient HX: Redness, swelling, infection, with small wound on the anterior ortiz from recent trauma at airport, recent plane flight. No history of dvt. History of cellulitis, now taking clindamycin x 3 days. ; Additional info: Redness/infection, swelling, recent plane ride TECHNIQUE: Imaging protocol: Real-time duplex ultrasound of the right extremity with 2-D aguila scale, color Doppler flow and spectral waveform analysis including responses to compression and other maneuvers (when performed) with image documentation. Limited exam was focused on the right lower extremity veins. COMPARISON: CT kidney stone [id number] 05/23/2023 9:45 AM FINDINGS: Right deep veins: Unremarkable. The common femoral, femoral, proximal profunda femoral and popliteal veins are patent without thrombus. Normal Doppler waveforms. Normal compressibility and/or augmentation response. Superficial veins: Greater saphenous vein at the saphenofemoral junction is patent without thrombus. Soft tissues: There is increased reticulation of the subcutaneous tissues, consistent with edema. US/[place] [id number] IMPRESSION: No evidence of deep vein thrombosis.
[2024-05-26 01:08] LABS: Basophils # 0.1 10^3/uL (0.0-0.1); Basophils % 0.7 %; Eosinophils # 0.2 10^3/uL (0.0-0.8); Eosinophils % 2.4 %; Lymphocytes # 2.5 10^3/uL (0.8-4.8); Lymphocytes % 27.5 %; Mean Corpuscular HGB Conc 34.6 g/dL (30-55); Mean Corpuscular Hemoglobin 33.1 pg (27-33); Mean Corpuscular Volume 95.6 fl (82-101); Mean Platelet Volume 10.6 fL (7.4-10.4); Monocytes # 0.7 10^3/uL (0.2-0.9); Neutrophils # 5.59 10^3/uL (1.8-7.7); Neutrophils % 61.1 %; Nucleated Red Blood Cells % 0 %; Platelet Count 197 10^3/cmm (157-399); Red Blood Count 4.29 10^6/uL (3.85-5.65); Red Cell Distribution Width 12.8 % (12.1-15.1); White Blood Count 9.14 10^3/uL (3.29-11.43)
[2024-05-26] MEDS: vancomycin 1,000 MG in sodium chloride 0.9% 250 ML 250 MG IV (01:13)
[2024-05-26 01:20] LABS: Alanine Aminotransferase 20 U/L (0-41); Albumin Level 4.2 g/dL (3.5-5.2); Alkaline Phosphatase 121 U/L (40-130); Anion Gap 14.4 (5-19); Aspartate Amino Transferase 24 U/L (0-40); Blood Urea Nitrogen 15 mg/dL (8-23); Calcium 9.4 mg/dL (8.5-10.5); Carbon Dioxide 28 mmol/L (22-29); Chloride 104 mmol/L (98-107); Creatinine Clr Calc Pharmacy 85.6997; Globulin 2.7 g/dL (1.3-4.6); Glucose 98 mg/dL (65-115); Osmolality Calculated 295 mOsm/kg (285-295); Potassium 4.4 mmol/L (3.5-5.1); Sodium 142 mmol/L (136-145); Total Bilirubin 0.5 mg/dL (0.15-1.2); Total Protein 6.9 g/dL (6.6-8.7)
[2024-05-26 02:20] VITALS: BP 142/65; PULSE 87; RESP 18; O2SAT 97
== END 2024-05-26 02:22 | disposition home or self-care (01) ==
PROVIDERS: Physician Assistant; Emergency Provider Emergency Medicine; PCP Family Medicine
DX: L03.115 Cellulitis of right lower limb (principal); Z79.82 Long term (current) use of aspirin; E78.5 Hyperlipidemia, unspecified
CPT/HCPCS: 36415; 80053; 85025; 86140; 87040; 93971; 99284; J3370; J7050

== ENCOUNTER → 2024-08-10 14:00 | Outpatient (BNVA) | payer MEDICARE, OTHER, SELFPAY | PROVIDERS: PCP Family Medicine; Visit Provider Internal Medicine | DX: I25.10 Atherosclerotic heart disease of native coronary artery without angina pectoris (principal); I87.2 Venous insufficiency (chronic) (peripheral); E78.5 Hyperlipidemia, unspecified; Z98.61 Coronary angioplasty status; I48.91 Unspecified atrial fibrillation | CPT/HCPCS: 99213 ==

== ENCOUNTER → 2024-11-25 08:52 | Outpatient (BNVA) | payer MEDICARE, OTHER, SELFPAY | PROVIDERS: PCP Family Medicine; Visit Provider Nurse Practitioner Family | DX: L21.8 Other seborrheic dermatitis (principal); D18.01 Hemangioma of skin and subcutaneous tissue; L57.8 Other skin changes due to chronic exposure to nonionizing radiation; X32.XXXA Exposure to sunlight, initial encounter; L81.4 Other melanin hyperpigmentation; L82.0 Inflamed seborrheic keratosis; R20.9 Unspecified disturbances of skin sensation; R20.8 Other disturbances of skin sensation; L53.8 Other specified erythematous conditions; L29.89 Other pruritus | CPT/HCPCS: 17110; 99214 ==

== ENCOUNTER 2025-02-26 21:43 | Emergency (ER) | payer OTHER, MEDICARE, SELFPAY ==
--- OUTSIDE RECORDS SUMMARY | 2025-02-26 21:48 | XMS_ITS | Encounter Summary ---
Author Organization [facility] Address [address] [place] [address] Care Team Providers Care Lab Director Name Role Phone Mac Murray MD Primary Care Provider Unavailab le Encounter Details Date Type Department Care Team (Latest Contact Info) Description 07/15/2006 Outpatient [facility] Cardiology Ancillary [facility] [address] [place] [address] Cody Maloney MD [address] [facility] [address] [place] [address] Other Specified Forms of Chronic Ischemic Heart Disease (Primary Dx); Coronary Atherosclerosis of 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 Gender Identity Not on file Sexual Orientation Not on file documented as of this encounter Plan of Treatment Not on file documented as of this encounter Procedures Procedure Name Priority Date/Time Associated Diagnosis Comments NM CARDIAC MUGA W STRESS Routine 07/15/2006 10:00 AM AFTER SCHOOL TUTOR documented in this encounter Results * NM CARDIAC MUGA W STRESS (07/15/2006 10:00 AM AFTER SCHOOL TUTOR) 07/15/2006 10:0 0 AM AFTER SCHOOL TUTOR Narrative INTERFACE SYSTEM - 07/15/2006 10:00 AM AFTER SCHOOL TUTOR FIRST-PASS RADIONUCLIDE ANGIOGRAM AND RESTING MUGA SCAN: REASON FOR STUDY: History of carditis, ischemic cardiomyopathy. PROCEDURE: A total of 33 mCi of Tc-99m (technetium-99m) was used to tag the blood pool, and first-pass and resting gated acquisition studies were performed in multiple views to evaluate for right ventricular and left ventricular function. FINDINGS: The gated acquisition study revealed that left ventricular chamber size is grossly within normal limits, and the ejection fraction was greater than 60% with the heart rate of 60. Wall motion was grossly within normal limits. First-pass radionuclide angiography revealed that the right ventricular systolic ejection fraction was within normal limits at 61%. Overall, the right ventricular size appeared to be within normal limits. The right atrium was also jennifer normally and suggestive of normal sinus rhythm. IMPRESSION: 1. Right ventricular function is preserved with an ejection fraction calculated to be 61%. 2. Left ventricular systolic function is improved and now is normalized at an ejection fraction greater than 60% with preserved left ventricular chamber dimension. jaw : Dictated By: Cody Maloney Electronically Signed By: Cody Maloney Date Signed: 07/22/06 [facility] Procedure Note 07/21/2009 FIRST-PASS RADIONUCLIDE ANGIOGRAM AND RESTING MUGA SCAN: REASON FOR STUDY: History of carditis, ischemic cardiomyopathy. PROCEDURE: A total of 33 mCi of Tc-99m (technetium-99m) was used to tag the bloodpool, and first-pass and resting gated acquisition studies were performed in multiple views to evaluate forright ventricular and left ventricular function. FINDINGS: The gated acquisition study revealed that left ventricular chamber size isgrossly within normal limits, and the ejection fraction was greater than 60% with the heart rate of 60.Wall motion was grossly within normal limits. First-pass radionuclide angiography revealed that the right ventricularsystolic ejection fraction was within normal limits at 61%. Overall, the right ventricular size appearedto be within normal limits. The right atrium was also jennifer normally and suggestive of normalsinus rhythm. IMPRESSION: 1. Right ventricular function is preserved with an ejection fractioncalculated to be 61%. 2. Left ventricular systolic function is improved and now is normalized at anejection fraction greater than 60% with preserved left ventricular chamber dimension. jaw : Dictated By: Cody Maloney Electronically Signed By: Cody Maloney Date Signed: 07/22/06 JAW us Cody Maloney MD NM ORDERABLES Final Result INTERFACE SYSTEM Refer to clinic/hospital department documented in this encounter Visit Diagnoses Diagnosis Other specified forms of chronic ischemic heart disease- Primary Coronary atherosclerosis of [place] coronary artery documented in this encounter Care Teams Lab Director Relationship Specialty Start Date End Date Mac Murray MD PCP - General Hyster Machine Operator 02/18/11 documented as of this encounter
--- OUTSIDE RECORDS SUMMARY | 2025-02-26 21:48 | XMS_ITS | Encounter Summary ---
Author Organization [facility] Address [address] [place] [address] Care Team Providers Care Bathing Suit Maker Name Role Phone Mac Murray MD Primary Care Provider Unavailab le Encounter Details Date Type Department Care Team (Late st Contact Info) Description 02/28/[address] [facility] Dermatology[address] [place] [address] Chance Hansen MD [address] 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
--- OUTSIDE RECORDS SUMMARY | 2025-02-26 21:48 | XMS_ITS | Encounter Summary ---
Author Organization [facility] Address [address] [place] [address] Care Team Providers Care Cut Out Operator Name Role Phone Mac Murray MD Primary Care Provider Unavailab le Encounter Details Date Type Department Care Team (Latest Contact Info) Description 07/07/2006 Outpatient Historical [facility] Cardiology- [place] [address] [place] [address] Cody Maloney MD [address] [facility] [address] [place] [address] Other Specified Forms of Chronic Ischemic Heart Disease (Primary Dx); Coronary Atherosclerosis of [place] Coronary Artery; Congestive Heart Failure, Unspecified (CMS/HCC); Old Myocardial Infarct Social History Tobacco Use Types Packs/Day Years Used Date Smoking Tobacco: Never Assessed Sex and Gender Information Value Date Recorded Sex Assigned at Not on file 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 Gender Identity Not on file Sexual Orientation Not on file documented as of this encounter Plan of Treatment Not on file documented as of this encounter Visit Diagnoses Diagnosis Other specified forms of chronic ischemic heart disease- Primary Coronary atherosclerosis of [place] coronary artery Congestive heart failure, unspecified (CMS/HCC) Congestive heart failure, unspecified Old myocardial infarct Old myocardial infarction documented in this encounter Care Teams Cut Out Operator Relationship Specialty Start Date End Date Mac Murray MD PCP - General Emergency Care Tech 02/18/11 documented as of this encounter
--- OUTSIDE RECORDS SUMMARY | 2025-02-26 21:48 | XMS_ITS | Clinical Summary ---
Author Organization [facility] Address [address] [place] [address] Care Team Providers Care Tromper Name Role Phone Mac Murray MD Primary Care Provider Unavailab le Allergies No known active allergies Medications nitroglycerin (NITROSTAT) 0.[address] 0.4 mg under tongue every 5 minutes as needed. Active atorvastatin (LIPITOR) 40 mg Oral Tab Take 1 Tab by mouth daily. 30 Tab 11 9 Active multivitamin (DAILY-RAMOS) Oral tablet Take 1 Tab by mouth daily. Active Dextran 70-Hypromellose (BION TEARS) OP Dpet Administer 1 Drop in both eyes 4 times daily. Active lisinopril (PRINIVIL) 2.5 mg Oral tablet Take 2.5 mg by mouth daily at bedtime. pcp Active aspirin (CONSUELO) 81 mg Oral Tab Take 2 Tabs by mouth daily. 100 Tab 11 2 Active ciprofloxacin (CIPRO) 500 mg Oral tablet Take 1 Tab by mouth 2 times daily. 20 Tab None 2 Active metroNIDAZOLE (FLAGYL) 500 mg Oral tablet Take 1 Tab by mouth 2 times daily. 20 Tab 0 2 Active oxyCODONE-aceta minophen (PERCOCET) 7.5-325 mg Oral Tab Take 1 Tab by mouth every 4 hours as needed for Pain, Moderate. 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 02/19/20 12 History of [place] (myocardial infarction) 11/12/2011 Pseudophakia 03/26/2011 Senile cataract, unspecified 03/20/2011 ASHD (arteriosclerotic heart disease) 06/13/2009 Other and unspecified hyperlipidemia 06/08/2009 Encounter for long-term (current) use of other m edications 06/08/2009 Family History Medical History Relation Name Comments Healthy Brother Healthy Daughter 1 Healthy Daughter 2 Heart Disease Father Cataract Maternal Grandmother Other Mother dementia Healthy Son 1 Healthy Son 2 Healthy Son 3 Relation Name Status Comments Brother Alive Daughter 1 Alive Daughter 2 Alive Father Maternal Grandmother Mother Alive Son 1 Alive Son 2 Alive Son 3 Alive Social History Tobacco Use Types Packs/Day Years Used Date Smoking Tobacco: Never Smokeless Tobacco: Never Alcohol Use Standard Drinks/Week Comments No 0 (1 standard drink = 0.6 oz pur e alcohol) Sex and Gender Information Value Date Recorded Sex Assigned at Not on file 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 Gender Identity Not on file Sexual Orientation Not on file Last Filed Vital Signs Vital Sign Reading Time Taken Comments Blood Pressure 101/68 06/02/2012 10:29 AM CDT Pulse 65 04/01/2012 10:49 AM CDT Temperature 36.8 C (98.2 F) 05/03/2012 11:26 AM CDT Respiratory Rate 16 05/03/2012 4:30 PM CDT Oxygen Saturation 96% 05/03/2012 4:30 PM CDT Inhaled Oxygen Concentration - - Weight 93 kg (205 lb) 06/02/2012 10:29 AM CDT Height 175.3 cm (5' 9 ) 06/02/2012 10:29 AM CDT Body Mass Index 30.27 06/02/2012 10:29 AM CDT Plan of Treatment Health Maintenance Due Date Last Done Comments DTAP/TDAP/TD VACCINES (1 - Tdap) 1971 COLORECTAL SCREENING 1997 Colorectal Cancer Screening 1997 FIT-DNA Q 3 years 1997 FIT/FOBT Q 1 year 1997 Flex Sig/CT Colonography Q 5 years 1997 PNEUMOCOCCAL VACCINE 50+ YEARS (1 of 1 - PCV) 06/28/20 02 ZOSTER VACCINE (1 of 2) 2002 RSV VACCINE (60+ or ) (1 - Risk 60-74 years 1-dose series) 2012 INFLUENZA VACCINE (#1) 2024 Medical Devices Implanted Type Area Mental Health Consultant Device Identifier Shelf Expiration Date Model / Serial / Lot Log [id number] - Micheal Sn60wf - 1 - Lens Io Sn60wf 30.0 Implanted:Qty: 1 on 03/26/2011 at [facility] Eye Left: Eye [facility] 05/27/2015 [id number] / [id number] / Lens Io Sn60wf 24.5 - [id number] Implanted:Qty: 1 on 02/25/2012 at [facility] Eye Right: Lens [facility] 08/31/2016 [id number] / [id number] / Insurance RIGHT CHOICE BENEFIT ADMINISTRATION OA Advance Directives For more information, please contact: [phone] * Full Code (Latest Code Status on File) Date Activated Date Inactivated Comments 02/25/2012 7:45 AM 02/26/2012 2:02 AM * Full Code Date Activated Date Inactivated Comments 03/26/2011 10:01 AM 03/27/2011 2:31 AM * Full Code Date Activated Date Inactivated Comments 02/18/2011 3:58 PM 02/19/2011 12:09 PM * Full Code Date Activated Date Inactivated Comments 02/18/2011 2:32 PM 02/18/2011 3:58 PM Care Teams Tromper Relationship Specialty Start Date End Date Mac Murray MD PCP - General Coutierier 02/18/11
--- OUTSIDE RECORDS SUMMARY | 2025-02-26 21:48 | XMS_ITS | Encounter Summary ---
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
--- OUTSIDE RECORDS SUMMARY | 2025-02-26 21:48 | XMS_ITS | Encounter Summary ---
Author Organization [facility] Address [address] [place] [address] Care Team Providers Care Culinary Specialist Name Role Phone Mac Murray MD Primary Care Provider Unavailab le Encounter Details Date Type Department Care Team (Latest Contact Info) Description 11/15/1999 Outpatient Historical [facility] Cancer and Hematology [facility] [facility] [address] [place] [id number] Bentley Matson MD NO ADDRESS ON FILE Anemia, unspecified (Primary Dx) Social History Tobacco Use Types Packs/Day Years Used Date Smoking Tobacco: Never Assessed Sex and Gender Information Value Date Recorded Sex Assigned at Not on file Legal Sex Male 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
--- OUTSIDE RECORDS SUMMARY | 2025-02-26 21:48 | XMS_ITS | Encounter Summary ---
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 Gender Identity Not on file Sexual Orientation Not on file documented as of this encounter Plan of Treatment Not on file documented as of this encounter Procedures Procedure Name Priority Date/Time Associated Diagnosis Comments BASIC METABOLIC PANEL Routine 05/24/2006 4:21 AM CDT CBC WITH DIFFERENTIAL Routine 05/23/2006 5:00 AM CDT HEPATIC FUNCTION PANEL Routine 05/23/2006 5:00 AM CDT LIPID PANEL Routine 05/23/2006 5:00 AM CDT BASIC METABOLIC PANEL Routine 05/23/2006 5:00 AM CDT CK TOTAL, RELATIVE INDEX Routine 05/21/2006 7:39 PM CDT CARDIAC ENZYMES Routine 05/21/2006 7:39 PM CDT CK Routine 05/21/2006 7:39 PM CDT POC ACTIVATED CLOTTING TIME Routine 05/21/2006 2:13 PM CDT CK TOTAL, RELATIVE INDEX Routine 05/21/2006 1:05 PM CDT CARDIAC ENZYMES Routine 05/21/2006 1:05 PM CDT CK Routine 05/21/2006 1:05 PM CDT POC ACTIVATED CLOTTING TIME Routine 05/21/2006 12:55 PM CDT HEPATIC FUNCTION PANEL Routine 05/21/2006 10:52 AM CDT LIPID PANEL Routine 05/21/2006 10:52 AM CDT CK TOTAL, RELATIVE INDEX Routine 05/21/2006 7:30 AM CDT CARDIAC ENZYMES Routine 05/21/2006 7:30 AM CDT CBC WITH DIFFERENTIAL Routine 05/21/2006 7:30 AM CDT PTT Routine 05/21/2006 7:30 AM CDT PROTIME-INR Routine 05/21/2006 7:30 AM CDT CK Routine 05/21/2006 7:30 AM CDT BASIC METABOLIC PANEL Routine 05/21/2006 7:30 AM CDT documented in this encounter Results * BASIC METABOLIC PANEL (05/24/2006 4:21 AM CDT) GLUCOSE 98 70 - 110 mg/dL INTERFACE SYSTEM BUN 12 9 - 20 mg/dL INTERFACE SYSTEM CREATININE 1.1 0.7 - 1.5 mg/dL INTERFACE SYSTEM SODIUM 141 136 - 145 mEq/L INTERFACE SYSTEM POTASSIUM 3.8 3.5 - 5.0 mEq/L INTERFACE SYSTEM CHLORIDE 106 95 - 110 mEq/L INTERFACE SYSTEM CO2 29 22 - 32 mmol/l INTERFACE SYSTEM ANION GAP 10 9 - 20 mEq/L INTERFACE SYSTEM OSMOLALITY, CALCULATED 289 275 - 295 mOsm/Kg INTERFACE SYSTEM CALCIUM 9.1 8.4 - 10.5 mg/dL INTERFACE SYSTEM 05/24/2006 4:21 AM CDT us Cody Maloney MD CHEMISTRY ORDERABLES Final Resul t INTERFACE SYSTEM Refer to clinic/hospital department * (ABNORMAL) CBC WITH DIFFERENTIAL (05/23/2006 5:00 AM CDT) WBC 8.9 4.8 - 10.8 K/ul INTERFACE SYSTEM RBC 3.89(L) 4.60 - 6.20 Mil/ul INTERFACE SYSTEM HEMOGLOBIN 12.4(L) 14.0 - 18.0 g/dL INTERFACE SYSTEM HEMATOCRIT 35.6(L) 41.0 - 53.0 % INTERFACE SYSTEM MCV 91.5 84.0 - 103.0 Fl INTERFACE SYSTEM MCH 31.9 27.0 - 34.0 pg INTERFACE SYSTEM MCHC 34.8 30.0 - 35.0 g/dL INTERFACE SYSTEM RDW 13.3 11.0 - 14.5 % INTERFACE SYSTEM PLATELETS 151 140 - 440 K/ul INTERFACE SYSTEM MPV 10.4 8.9 - 12.8 Fl INTERFACE SYSTEM NEUTROPHILS 67.2 42.2 - 75.2 % INTERFACE SYSTEM LYMPHOCYTES 24.0 24.0 - 44.0 % INTERFACE SYSTEM MONOCYTES 7.2 2.0 - 10.0 % INTERFACE SYSTEM EOSINOPHILS 1.4 0.0 - 7.0 % INTERFACE SYSTEM BASOPHILS 0.2 0.0 - 1.0 % INTERFACE SYSTEM NEUTROPHIL ABSOLUTE 6.0 2.0 - 8.0 K/uL INTERFACE SYSTEM LYMPHOCYTE ABSOLUTE 2.1 1.2 - 4.0 K/ul INTERFACE SYSTEM MONOCYTE ABSOLUTE 0.6 0.1 - 0.6 K/ul INTERFACE SYSTEM EOSINOPHIL ABSOLUTE 0.1 0.0 - 0.7 K/ul INTERFACE SYSTEM BASOPHILS ABSOLUTE 0.0 0.0 - 0.2 K/ul INTERFACE SYSTEM 05/23/2006 5:00 AM CDT Cody Maloney MD HEMATOLOGY ORDERABLES Final Resu lt INTERFACE SYSTEM Refer to clinic/hospital department * (ABNORMAL) HEPATIC FUNCTION PANEL (05/23/2006 5:00 AM CDT) TOTAL PROTEIN 6.1(L) 6.3 - 8.2 g/dL INTERFACE SYSTEM ALBUMIN 3.7 3.5 - 5.0 g/dL INTERFACE SYSTEM ALKALINE PHOSPHATASE 79 25 - 100 U/L INTERFACE SYSTEM Comment: As of 05 the [facility] has changed testing methods. The new reference range is 25-100 The old referance range was 38-126 AST 58(H) 8 - 33 U/L INTERFACE SYSTEM Comment: As of 05 the [facility] has changed testing methods. The new reference range is 8-33 The old referance range was Males 17-59 Females 14-36 ALT 70(H) 4 - 36 IU/L INTERFACE SYSTEM Comment: As of 05 the [facility] has changed testing methods. The new reference range is 4-36 The old referance range was Males 21-72 Females 9-52 BILIRUBIN DIRECT 0.2 0.0 - 0.4 mg/dL INTERFACE SYSTEM BILIRUBIN TOTAL 0.8 0.3 - 1.2 mg/dL INTERFACE SYSTEM Comment: As of 05 the [facility] has changed testing methods. The new reference range is 0.3-1.2 The old referance range was 0.2-1.4 05/23/2006 5:00 AM CDT Cody Maloney MD CHEMISTRY ORDERABLES Final Resul t INTERFACE SYSTEM Refer to clinic/hospital department * (ABNORMAL) LIPID PANEL (05/23/2006 5:00 AM CDT) CALCULATED TOTAL CHOLESTEROL TO HDL RATIO 5.30(H) 3.43 - 4.97 INTERFACE SYSTEM CHOLESTEROL 175 75 - 200 mg/dL INTERFACE SYSTEM HDL 33(L) 40 - 60 mg/dL INTERFACE SYSTEM LDL CALCULATED 93 0 - 130 mg/dL INTERFACE SYSTEM TRIGLYCERIDE 244(H) 0 - 200 mg/dL INTERFACE SYSTEM 05/23/2006 5:00 AM CDT us Cody Maloney MD CHEMISTRY ORDERABLES Final Resul t Performing Organization Address [facility] Phone Number INTERFACE SYSTEM Refer to clinic/hospital department * BASIC METABOLIC PANEL (05/23/2006 5:00 AM CDT) GLUCOSE 102 70 - 110 mg/dL INTERFACE SYSTEM BUN 12 9 - 20 mg/dL INTERFACE SYSTEM CREATININE 1.0 0.7 - 1.5 mg/dL INTERFACE SYSTEM SODIUM 144 136 - 145 mEq/L INTERFACE SYSTEM POTASSIUM 3.6 3.5 - 5.0 mEq/L INTERFACE SYSTEM CHLORIDE 110 95 - 110 mEq/L INTERFACE SYSTEM CO2 28 22 - 32 mmol/l INTERFACE SYSTEM ANION GAP 10 9 - 20 mEq/L INTERFACE SYSTEM OSMOLALITY, CALCULATED 294 275 - 295 mOsm/Kg INTERFACE SYSTEM CALCIUM 8.8 8.4 - 10.5 mg/dL INTERFACE SYSTEM 05/23/2006 5:00 AM CDT us Cody Maloney MD CHEMISTRY ORDERABLES Final Resul t Performing Organization Address [facility] Phone Number INTERFACE SYSTEM Refer to clinic/hospital department * (ABNORMAL) CK TOTAL, RELATIVE INDEX (05/21/2006 7:39 PM CDT) CK-MB CHEMICAL INDEX 10.0(H) 0.0 - 4.5 INTERFACE SYSTEM 05/21/2006 7:39 PM CDT us Kemi Nunez DO CHEMISTRY ORDERABLES Final Resu lt Performing Organization Address [facility] Phone Number INTERFACE SYSTEM Refer to clinic/hospital department * (ABNORMAL) CK (05/21/2006 7:39 PM CDT) CK 391(H) 38 - 174 U/L INTERFACE SYSTEM Comment: As of [address] [facility] has changed testing methods. The new reference ranges are Males 38-174 Females 26-140 The old referance ranges were Males 0-155 Females 0-133 05/21/2006 7:39 PM CDT us Kemi Nunez DO CHEMISTRY ORDERABLES Final Resu lt Performing Organization Address [facility] Phone Number INTERFACE SYSTEM Refer to clinic/hospital department * (ABNORMAL) CARDIAC ENZYMES (05/21/2006 7:39 PM CDT) CKMB 39.0(H) 0.0 - 5.0 ng/mL INTERFACE SYSTEM TROPONIN I 12.0(AA) 0.0 - 1.5 ng/mL INTERFACE SYSTEM Comment: Potentially critical/toxic trop called by sp to padmini, with verbal read back, at 05/21/2006 20:08. 05/21/2006 7:39 PM CDT us Kemi Nunez DO CHEMISTRY ORDERABLES Final Resu lt Performing Organization Address [facility] Phone Number INTERFACE SYSTEM Refer to clinic/hospital department * (ABNORMAL) POC ACTIVATED CLOTTING TIME (05/21/2006 2:13 PM CDT) ACT POC 162(H) 79 - 149 sec INTERFACE SYSTEM 05/21/2006 2:13 PM CDT Cody Maloney MD POINT OF CARE TESTING Final Resu lt Performing Organization Address [facility] Phone Number INTERFACE SYSTEM Refer to clinic/hospital department * (ABNORMAL) CK TOTAL, RELATIVE INDEX (05/21/2006 1:05 PM CDT) CK-MB CHEMICAL INDEX 9.4(H) 0.0 - 4.5 INTERFACE SYSTEM 05/21/2006 1:05 PM CDT us Kemi Nunez DO CHEMISTRY ORDERABLES Final Resu lt Performing Organization Address [facility] Phone Number INTERFACE SYSTEM Refer to clinic/hospital department * (ABNORMAL) CK (05/21/2006 1:05 PM CDT) CK 271(H) 38 - 174 U/L INTERFACE SYSTEM Comment: As of 05 the [facility] has changed testing methods. The new reference ranges are Males 38-174 Females 26-140 The old referance ranges were Males 0-155 Females 0-133 05/21/2006 1:05 PM CDT Kemi Nunez DO CHEMISTRY ORDERABLES Final Resu Performing Organization Address [facility] Phone Number INTERFACE SYSTEM Refer to clinic/hospital department * (ABNORMAL) CARDIAC ENZYMES (05/21/2006 1:05 PM CDT) CKMB 25.4(H) 0.0 - 5.0 ng/mL INTERFACE SYSTEM TROPONIN I 10.8(AA) 0.0 - 1.5 ng/mL INTERFACE SYSTEM Comment: Potentially critical/toxic troponin called by 05/21/2006 13:46nb to mary, with verbal read back, at 05/21/2006 13:46. 05/21/2006 1:05 PM CDT Kemi Nunez DO CHEMISTRY ORDERABLES Final Resu Performing Organization Address [facility] Phone Number INTERFACE SYSTEM Refer to clinic/hospital department * (ABNORMAL) POC ACTIVATED CLOTTING TIME (05/21/2006 12:55 PM CDT) ACT POC 197(H) 79 - 149 sec INTERFACE SYSTEM 05/21/2006 12:5 5 PM CDT Cody Maloney MD POINT OF CARE TESTING Final Resu lt Performing Organization Address [facility] Phone Number INTERFACE SYSTEM Refer to clinic/hospital department * (ABNORMAL) LIPID PANEL (05/21/2006 10:52 AM CDT) CALCULATED TOTAL CHOLESTEROL TO HDL RATIO 5.26(H) 3.43 - 4.97 INTERFACE SYSTEM CHOLESTEROL 205(H) 75 - 200 mg/dL INTERFACE SYSTEM HDL 39(L) 40 - 60 mg/dL INTERFACE SYSTEM LDL CALCULATED 132(H) 0 - 130 mg/dL INTERFACE SYSTEM TRIGLYCERIDE 168 0 - 200 mg/dL INTERFACE SYSTEM 05/21/2006 10:5 2 AM CDT Cody Maloney MD CHEMISTRY ORDERABLES Final Resul t Performing Organization Address [facility] de Phone Number INTERFACE SYSTEM Refer to clinic/hospital department * (ABNORMAL) HEPATIC FUNCTION PANEL (05/21/2006 10:52 AM CDT) Pathologist [facility] TOTAL PROTEIN 6.7 6.3 - 8.2 g/dL INTERFACE SYSTEM ALBUMIN 4.0 3.5 - 5.0 g/dL INTERFACE SYSTEM ALKALINE PHOSPHATASE 91 25 - 100 U/L INTERFACE SYSTEM Comment: As of 05 the [facility] has changed testing methods. The new reference range is 25-100 The old referance range was 38-126 AST 63(H) 8 - 33 U/L INTERFACE SYSTEM Comment: As of 05 the [facility] has changed testing methods. The new reference range is 8-33 The old referance range was Males 17-59 Females 14-36 ALT 90(H) 4 - 36 IU/L INTERFACE SYSTEM Comment: As of 05 the [facility] has changed testing methods. The new reference range is 4-36 The old referance range was Males 21-72 Females 9-52 BILIRUBIN DIRECT 0.2 0.0 - 0.4 mg/dL INTERFACE SYSTEM BILIRUBIN TOTAL 0.7 0.3 - 1.2 mg/dL INTERFACE SYSTEM Comment: As of 05 the [facility] has changed testing methods. The new reference range is 0.3-1.2 The old referance range was 0.2-1.4 05/21/2006 10:5 2 AM CDT us Cody Maloney MD CHEMISTRY ORDERABLES Final Resul t Performing Organization Address [facility] de Phone Number INTERFACE SYSTEM Refer to clinic/hospital department * (ABNORMAL) CBC WITH DIFFERENTIAL (05/21/2006 7:30 AM CDT) WBC 10.9(H) 4.8 - 10.8 K/ul INTERFACE SYSTEM RBC 4.37(L) 4.60 - 6.20 Mil/ul INTERFACE SYSTEM HEMOGLOBIN 14.0 14.0 - 18.0 g/dL INTERFACE SYSTEM HEMATOCRIT 39.5(L) 41.0 - 53.0 % INTERFACE SYSTEM MCV 90.4 84.0 - 103.0 Fl INTERFACE SYSTEM MCH 32.0 27.0 - 34.0 pg INTERFACE SYSTEM MCHC 35.4(H) 30.0 - 35.0 g/dL INTERFACE SYSTEM RDW 13.3 11.0 - 14.5 % INTERFACE SYSTEM PLATELETS 174 140 - 440 K/ul INTERFACE SYSTEM MPV 10.3 8.9 - 12.8 Fl INTERFACE SYSTEM NEUTROPHILS 76.3(H) 42.2 - 75.2 % INTERFACE SYSTEM LYMPHOCYTES 17.3(L) 24.0 - 44.0 % INTERFACE SYSTEM MONOCYTES 5.1 2.0 - 10.0 % INTERFACE SYSTEM EOSINOPHILS 1.0 0.0 - 7.0 % INTERFACE SYSTEM BASOPHILS 0.3 0.0 - 1.0 % INTERFACE SYSTEM NEUTROPHIL ABSOLUTE 8.3(H) 2.0 - 8.0 K/uL INTERFACE SYSTEM LYMPHOCYTE ABSOLUTE 1.9 1.2 - 4.0 K/ul INTERFACE SYSTEM MONOCYTE ABSOLUTE 0.6 0.1 - 0.6 K/ul INTERFACE SYSTEM EOSINOPHIL ABSOLUTE 0.1 0.0 - 0.7 K/ul INTERFACE SYSTEM BASOPHILS ABSOLUTE 0.0 0.0 - 0.2 K/ul INTERFACE SYSTEM 05/21/2006 7:30 AM CDT us Kemi Nunez DO HEMATOLOGY ORDERABLES Final Res ult Performing Organization Address [facility] de Phone Number INTERFACE SYSTEM Refer to clinic/hospital department * (ABNORMAL) PTT (05/21/2006 7:30 AM CDT) PTT 58.5(H) 21.5 - 34.4 Secs INTERFACE SYSTEM Comment: Therapeutic Range: Hi-level PE/DVT heparin protocol 90.1 -110 sec Lo-level PE/DVT heparin protocol 75.1 - 95 sec Cardiac Heparin Protocol 85.1 - 100 sec Neuro Heparin Protocol 70.1 - 85 sec As of 09/25/05 note change in APTT Normal Range. 05/21/2006 7:30 AM CDT us Kemi Nunez DO HEMATOLOGY ORDERABLES Final Res ult Performing Organization Address [facility] de Phone Number INTERFACE SYSTEM Refer to clinic/hospital department * PROTIME-INR (05/21/2006 7:30 AM CDT) PROTIME 14.7 12.6 - 14.9 Secs INTERFACE SYSTEM Comment: As of 05 note change in normal range. INR 1.1 INTERFACE SYSTEM Comment: Expected Values for INR: DVT/PE Goal INR 2.5; range 2.0 - 3.0 Valve Replacement Tissue Goal INR 2.5; range 2.0 - 3.0 Mechanical Goal INR 3.0; range 2.5 - 3.5 POST-ID Goal INR 2.5; range 2.0 - 3.0 or Goal 3.0; range 2.5 - 3.5 Atrial Fibrillation Goal INR 2.5; range 2.0 - 3.0 Ischemic Stroke Goal INR 2.5; range 2.0 - 3.0 For additional information see Guidelines for Anticoagulation available from the pharmacy Sang Dill D. 05/21/2006 7:30 AM CDT us Kemi Nunez DO HEMATOLOGY ORDERABLES Final Res ult Performing Organization Address [facility] de Phone Number INTERFACE SYSTEM Refer to clinic/hospital department * (ABNORMAL) CK TOTAL, RELATIVE INDEX (05/21/2006 7:30 AM CDT) CK-MB CHEMICAL INDEX 6.7(H) 0.0 - 4.5 INTERFACE SYSTEM 05/21/2006 7:30 AM CDT us Kemi Nunez DO CHEMISTRY ORDERABLES Final Resu lt Performing Organization Address [facility] Phone Number INTERFACE SYSTEM Refer to clinic/hospital department * (ABNORMAL) CK (05/21/2006 7:30 AM CDT) CK 197(H) 38 - 174 U/L INTERFACE SYSTEM Comment: As of [address] [facility] has changed testing methods. The new reference ranges are Males 38-174 Females 26-140 The old referance ranges were Males 0-155 Females 0-133 05/21/2006 7:30 AM CDT Kemi Nunez DO CHEMISTRY ORDERABLES Final Resu Performing Organization Address [facility] Phone Number INTERFACE SYSTEM Refer to clinic/hospital department * BASIC METABOLIC PANEL (05/21/2006 7:30 AM CDT) GLUCOSE 106 70 - 110 mg/dL INTERFACE SYSTEM BUN 12 9 - 20 mg/dL INTERFACE SYSTEM CREATININE 1.0 0.7 - 1.5 mg/dL INTERFACE SYSTEM SODIUM 141 136 - 145 mEq/L INTERFACE SYSTEM POTASSIUM 4.0 3.5 - 5.0 mEq/L INTERFACE SYSTEM Comment:Specimen slightly he molyzed CHLORIDE 108 95 - 110 mEq/L INTERFACE SYSTEM CO2 26 22 - 32 mmol/l INTERFACE SYSTEM ANION GAP 11 9 - 20 mEq/L INTERFACE SYSTEM OSMOLALITY, CALCULATED 290 275 - 295 mOsm/Kg INTERFACE SYSTEM CALCIUM 9.2 8.4 - 10.5 mg/dL INTERFACE SYSTEM 05/21/2006 7:30 AM CDT Kemi Nunez DO CHEMISTRY ORDERABLES Final Resu lt Performing Organization Address [facility] Phone Number INTERFACE SYSTEM Refer to clinic/hospital department * (ABNORMAL) CARDIAC ENZYMES (05/21/2006 7:30 AM CDT) CKMB 13.2(H) 0.0 - 5.0 ng/mL INTERFACE SYSTEM TROPONIN I 2.5(AA) 0.0 - 1.5 ng/mL INTERFACE SYSTEM Comment: Potentially critical/toxic troponin called by nb to greg, with verbal read back, at 05/21/2006 08:09. 05/21/2006 7:30 AM CDT Kemi Nunez DO CHEMISTRY ORDERABLES Final Resu lt INTERFACE SYSTEM Refer to clinic/hospital department documented in this encounter Visit Diagnoses Diagnosis Acute myocardial infarction, subendocardial infarction, initial episode of care (CMS/[facility])- Primary Acute myocardial infarction, subendocardial infarction, initial episode of care documented in this encounter Care Teams Catheter Finisher And Inspector Relationship Specialty Start Date End Date Mac Murray MD PCP - General Family Literacy Coordinator 02/18/11 documented as of this encounter
--- OUTSIDE RECORDS SUMMARY | 2025-02-26 21:48 | XMS_ITS | Encounter Summary ---
Author Organization [facility] Address [address] [place] [address] Care Team Providers Care Medical Review Specialist Name Role Phone Mac Murray MD Primary Care Provider Unavailab le Encounter Details Date Type Department Care Team (Latest Contact Info) Description 02/24/2008 Outpatient Historical [facility] Cardiac Mainframe Programmer [address] [place] [address] Cody Maloney MD [address] [address] Nonspecific Abnormal Unspecified Cardiovascular Function Study; Coronary Atherosclerosis of [place] Coronary Artery; Old Myocardial Infarction; Postsurgical Percutaneous Transluminal Coronary Angioplasty Status; Other and Unspecified Hyperlipidemia Social History Tobacco Use Types Packs/Day Years Used Date Smoking Tobacco: Never Assessed Sex and Gender Information Value Date Recorded Sex Assigned at Not on file 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5 mg/dL [facility] CALCIUM 9.9 8.4 - 10.5 mg/dL [facility] GLUCOSE 106 70 - 110 mg/dL [facility] CHLORIDE 108 95 - 110 mEq/L [facility] ANION GAP 10 9 - 20 mEq/L [facility] SODIUM 143 136 - 145 mEq/L [facility] BUN 14 9 - 20 mg/dL [facility] CO2 29 22 - 32 mmol/l [facility] Blood specimen (specimen) 02/26/2008 10:46 AM CDT 02/26/2008 10:46 AM CDT Cody Maloney MD CHEMISTRY ORDERABLES Final Resul t [facility] CLIA# [id number] [address] [place] [id number] * PT AND APTT (02/26/2008 10:46 AM CDT) PROTIME 13.1 12.8 - 15.8 Secs [facility] Comment:As of 2007 not e change in normal range. PTT 28.7 22.5 - 36.5 Secs [facility] Comment: Therapeutic Range: Hi-level PE/DVT heparin protocol 80.1 -95.0 sec Lo-level PE/DVT heparin protocol 67.1 - 80.0 sec Cardiac Heparin Protocol 67.1 - 85.0 sec Neuro Heparin Protocol 67.1 - 80.0 sec As of 11/19/2007 note change in APTT Normal Range. INR 0.9 [facility] Comment: Expected Values for INR: DVT/PE Goal INR 2.5; range 2.0 - 3.0 Valve Replacement Tissue Goal INR 2.5; range 2.0 - 3.0 Mechanical Goal INR 3.0; range 2.5 - 3.5 POST-FL Goal INR 2.5; range 2.0 - 3.0 or Goal 3.0; range 2.5 - 3.5 Atrial Fibrillation Goal INR 2.5; range 2.0 - 3.0 Ischemic Stroke Goal INR 2.5; range 2.0 - 3.0 For additional information see Guidelines for Anticoagulation available from the pharmacy [facility] [phone] Blood specimen (specimen) 02/26/2008 10:46 AM CDT 02/26/2008 10:46 AM CDT Cody Maloney MD HEMATOLOGY ORDERABLES Edited Performing Organization Address [facility] de Phone Number [facility] CLIA# [id number] [address] [place] [id number] * (ABNORMAL) CBC WITHOUT DIFFERENTIAL (02/26/2008 10:42 AM CDT) HEMATOCRIT 37.9(L) 41.0 - 53.0 % [facility] RBC 4.09(L) 4.60 - 6.20 Mil/ul [facility] PLATELETS 168 140 - 440 K/ul [facility] HEMOGLOBIN 13.0(L) 14.0 - 18.0 g/dL [facility] WBC 5.6 4.8 - 10.8 K/ul [facility] Blood specimen (specimen) 02/26/2008 10:42 AM CDT 02/26/2008 10:46 AM CDT us Cody Maloney MD HEMATOLOGY ORDERABLES Final Resu lt Performing Organization Address [facility] de Phone Number [facility] CLIA# [id number] [address] [place] [id number] documented in this encounter Visit Diagnoses Diagnosis Nonspecific abnormal unspecified cardiovascular function study Coronary atherosclerosis of [place] coronary artery Old myocardial infarction Postsurgical percutaneous transluminal coronary angioplasty status Other and unspecified hyperlipidemia documented in this encounter Care Teams Medical Review Specialist Relationship Specialty Start Date End Date Mac Murray MD PCP - General Bit Setter 02/18/11 documented as of this encounter
--- OUTSIDE RECORDS SUMMARY | 2025-02-26 21:48 | XMS_ITS | Encounter Summary ---
Author Organization [facility] Address [address] [place] [address] Care Team Providers Care Aerial Survey Technician Name Role Phone Mac Murray MD Primary Care Provider Unavailab le Encounter Details Date Type Department Care Team (Late st Contact Info) Description 08/19/2007 Outpatient Historical [facility] Cardiology- [place] [address] [place] [address] Cody Maloney MD [address] [address] Social History Tobacco Use Types Packs/Day Years Used Date Smoking Tobacco: Never Assessed Sex and Gender Information Value Date Recorded Sex Assigned at Not on file 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
--- OUTSIDE RECORDS SUMMARY | 2025-02-26 21:48 | XMS_ITS | Encounter Summary ---
Author Organization [facility] Address [address] [place] [address] Care Team Providers Care Thermal Cutter Helper Name Role Phone Mac Murray MD Primary Care Provider Unavailab le Encounter Details Date Type Department Care Team (Latest Contact Info) Description 02/10/2007 Outpatient Historical [facility] Cardiology- [place] [address] [place] [address] Cody Maloney MD [address] [facility] [address] [place] [address] Coronary Atherosclerosis of [place] Coronary Artery (Primary Dx); Unspecified Hypertensive Heart Disease without Heart Failure; Old Myocardial Infarct; Other and Unspecified Angina Pectoris Social History Tobacco Use Types Packs/Day Years Used Date Smoking Tobacco: Never Assessed Sex and Gender Information Value Date Recorded Sex Assigned at Not on file 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
--- OUTSIDE RECORDS SUMMARY | 2025-02-26 21:48 | XMS_ITS | Encounter Summary ---
Author Organization [facility] Address [address] [place] [address] Care Team Providers Care Shop Tech Name Role Phone Mac Murray MD Primary Care Provider Unavailab le Encounter Details Date Type Department Care Team (Latest Contact Info) Description 11/15/1999 Outpatient Historical [facility] Laboratory and [facility] [place] [address] [place] [address] Bentley Matson MD NO ADDRESS ON FILE Anemia, unspecified (Primary Dx) Social History Tobacco Use Types Packs/Day Years Used Date Smoking Tobacco: Never Assessed Sex and Gender Information Value Date Recorded Sex Assigned at Not on file 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
--- OUTSIDE RECORDS SUMMARY | 2025-02-26 21:48 | XMS_ITS | Clinical Summary ---
Author Organization [facility] Address [address] 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 02/19/20 12 History of GA (myocardial infarction) 11/12/2011 Pseudophakia 03/26/2011 Senile cataract, unspecified 03/20/2011 ASHD (arteriosclerotic heart disease) 06/13/2009 Encounter for long-term (current) use of other m edications 06/08/2009 Other and unspecified hyperlipidemia 06/08/2009 Family History Medical History Relation Name [...] at Not on file Legal Sex Male 6:23 AM GEOLOGICAL TECHNICAL OFFICER Gender Identity Not on file Sexual Orientation Not on file Plan of Treatment Health Maintenance Due Date Last Done Comments DTAP/TDAP/TD VACCINES (1 - Tdap) 1971 COLORECTAL SCREENING 1997 Colorectal Cancer Screening 1997 FIT-DNA Q 3 years 1997 FIT/FOBT Q 1 year 1997 Flex Sig/CT Colonography Q 5 years 1997 PNEUMOCOCCAL VACCINE 50+ YEARS (1 of 1 - PCV) 06/28/20 02 ZOSTER VACCINE (1 of 2) 2002 INFLUENZA VACCINE (#1) 2024 RSV VACCINE (60+ or ) (1 - 1-dose 75+ series) 2027 Medical Devices Implanted Type Area Court Security Officer Device Identifier Shelf Expiration Date Model / Serial / Lot Log [id number] - Micheal Sn60wf - 1 - Lens Io Sn60wf 30.0 Implanted:Qty: 1 on 03/26/2011 Eye Left: Eye [facility] 05/27/2015 SN60WF.30 0 / [id number] / Lens Io Sn60wf 24.5 - [id number] Implanted:Qty: 1 on 02/25/2012 Eye Right: Lens [facility] 08/31/2016 [id number].[id number] / [id number] / Care Teams Patient Resource Coordinator Relationship Specialty Start Date End Date Mac Murray MD NO ADDRESS ON FILE PCP - General Crusher Loader Operator 02/18/11
--- OUTSIDE RECORDS SUMMARY | 2025-02-26 21:48 | XMS_ITS | Encounter Summary ---
Author Organization [facility] Address [address] [place] [address] Care Team Providers Care Esl Tutor Name Role Phone Mac Murray MD Primary Care Provider Unavailab le Encounter Details Date Type Department Care Team (Latest Contact Info) Description 02/24/2007 Outpatient Historical [facility] Cardiology Ancillary Services[facility] [address] [place] [address] Cody Maloney MD [address] [facility] [address] [place] [address] Other and Unspecified Angina Pectoris (Primary Dx); Coronary Atherosclerosis of [place] Coronary Artery; Nonspecific Abnormal Electrocardiogram (ECG) (EKG) Social History Tobacco Use Types Packs/Day Years Used Date Smoking Tobacco: Never Assessed Sex and Gender Information Value Date Recorded Sex Assigned at Not on file 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 Chest pain. 2. Atherosclerotic heart disease. Radiopharmaceutical: Tc-99m (technetium-99m) tetrofosmin (rest) Dose: 11 mCi Tc-99m (technetium-99m) tetrofosmin (stress) 33 mCi FINDINGS: The planar images demonstrate normal left ventricular dimension. There is no significant lung uptake. Tomographic images demonstrate mild gastrointestinal artifact in the rest images. However, overall this is a technically good study. There is homogeneous radiopharmaceutical agent uptake throughout the myocardium. There is no significant ischemia noted. Gated images demonstrate normal left ventricular systolic function with ejection fraction calculated at 57 mL. There is mild septal wall motion abnormality at the base, otherwise unremarkable. End-diastolic volume is 70 mL, end-systolic volume 30 mL. IMPRESSION: 1. Normal left ventricular systolic function with mild septal wall motion abnormality. 2. No significant ischemia noted. jaw Dictated By: CODY MALONEY Electronically Signed By: CODY MALONEY Date Signed: 02/25/07 JAW Procedure Note 07/22/2009 MYOCARDIAL PERFUSION SPECTROSCOPY, STRESS AND REST IMAGES: INDICATION: 1. Chest pain. 2. Atherosclerotic heart disease. Radiopharmaceutical: Tc-99m (technetium-99m) tetrofosmin (rest) Dose: 11 mCi Tc-99m (technetium-99m) tetrofosmin (stress) 33 mCi FINDINGS: The planar images demonstrate normal left ventricular dimension. There isno significant lung uptake. Tomographic images demonstrate mild gastrointestinal artifact in the restimages. However, overall this is a technically good study. There is homogeneous radiopharmaceuticalagent uptake throughout the myocardium. There is no significant ischemia noted. Gated images demonstrate normal left ventricular systolic function withejection fraction calculated at 57 mL. There is mild septal wall motion abnormality at the base,otherwise unremarkable. End-diastolic volume is 70 mL, end-systolic volume 30 mL. IMPRESSION: 1. Normal left ventricular systolic function with mild septal wall motionabnormality. 2. No significant ischemia noted. jaw Dictated By: CODY MALONEY Electronically Signed By: CODY MALONEY Date Signed: 02/25/07 JAW us Cody CUADRA ORDERABLES Final Result INTERFACE SYSTEM Refer to clinic/hospital department * NM MYOCARD PERF IMAG SPECT MULT (02/24/2007 8:30 AM CDT) 02/24/2007 8:30 AM CDT Narrative INTERFACE SYSTEM - 02/24/2007 8:30 AM CDT CARDIAC STRESS TEST WITH TREADMILL, MONITORING AND INTERPRETATION: Indication: Chest pain, ASHD, old PR, PCI LAD 05/2006, hypertension, and hyperlipidemia. Resting blood pressure was 114/17 mmHg with a heart rate of 69 beats per minute. Peak blood pressure was 162/72 mmHg. Peak heart rate achieved was 169 BPM 102% of maximal predicted heart rate. Resting electrocardiogram showed sinus rhythm, right bundle-branch block with second-degree ST changes. With stress, up to 1.2 mm of up-sloping ST depression was noted inferiorly and anterolaterally. No significant arrhythmias seen. The patient walked 11 minutes and 16 seconds on a standard Herb protocol. The test was discontinued due to dyspnea but no chest pain was reported. Total work load achieved was 12.8 METs with a double product of 27, 378. At 10 minutes and 15 seconds into exercise, 33 mCi of Tc-99m tetrofosmin was injected. IMPRESSION: 1. Up to 1.2 mm up-sloping ST depression was noted which was equivocal to ischemia at very high work load and under 102% of maximal predicted heart rate. 2. Superior exercise tolerance, attaining 12.8 METs of work load without any chest pain. 3. Results of myocardial perfusion imaging will be reported separately. cgf: Dictated By: Earl Gracia M.D. Electronically Signed By: Earl Gracia M.D. Date Signed: 02/24/07 Procedure Note 07/22/2009 CARDIAC STRESS TEST WITH TREADMILL, MONITORING AND INTERPRETATION: Indication: Chest pain, ASHD, old PR, PCI LAD 05/2006, hypertension, andhyperlipidemia. Resting blood pressure was 114/17 mmHg with a heart rate of 69 beats perminute. Peak blood pressure was 162/72 mmHg. Peak heart rate achieved was 169 BPM 102% of maximalpredicted heart rate. Resting electrocardiogram showed sinus rhythm, right bundle-branch blockwith second-degree ST changes. With stress, up to 1.2 mm of up-sloping ST depression was noted inferiorlyand anterolaterally. No significant arrhythmias seen. The patient walked 11 minutes and 16 seconds on a standard Bruceprotocol. The test was discontinued due to dyspnea but no chest pain was reported. Total work load achievedwas 12.8 METs with a double product of 27, 378. At 10 minutes and 15 seconds into exercise, 33 mCi of Tc-99m tetrofosminwas injected. IMPRESSION: 1. Up to 1.2 mm up-sloping ST depression was noted which was equivocal toischemia at very high work load and under 102% of maximal predicted heart rate. 2. Superior exercise tolerance, attaining 12.8 METs of work load withoutany chest pain. 3. Results of myocardial perfusion imaging will be reported separately. cgf: Dictated By: Earl Gracia M.D. Electronically Signed By: Earl Gracia M.D. Date Signed: 02/24/07 us Cody Maloney MD NM ORDERABLES Final Result INTERFACE SYSTEM Refer to clinic/hospital department documented in this encounter Visit Diagnoses Diagnosis Other and unspecified angina pectoris- Primary Coronary atherosclerosis of [place] coronary artery Nonspecific abnormal electrocardiogram (ECG) (EKG) documented in this encounter Care Teams Esl Tutor Relationship Specialty Start Date End Date Mac Murray MD PCP - General Front End Web Developer 02/18/11 documented as of this encounter
[2025-02-26 21:52] VITALS: BP 169/78; PULSE 42; RESP 17; TEMP 36.7; O2SAT 97; BMI 33.9
[2025-02-27 00:07] LABS: Basophils # 0.1 10^3/uL (0.0-0.1); Basophils % 0.6 %; Eosinophils # 0.2 10^3/uL (0.0-0.8); Eosinophils % 2.5 %; Hematocrit 38.2 % (37-53); Lymphocytes # 2.5 10^3/uL (0.8-4.8); Lymphocytes % 29.5 %; Mean Corpuscular HGB Conc 34.8 g/dL (30-55); Mean Corpuscular Hemoglobin 32.5 pg (27-33); Mean Corpuscular Volume 93.4 fl (82-101); Mean Platelet Volume 10.3 fL (7.4-10.4); Monocytes # 0.5 10^3/uL (0.2-0.9); Monocytes % 6.3 %; Neutrophils # 5.08 10^3/uL (1.8-7.7); Neutrophils % 60.9 %; Nucleated Red Blood Cells % 0 %; Platelet Count 172 10^3/cmm (157-399); Red Blood Count 4.09 10^6/uL (3.85-5.65); Red Cell Distribution Width 13.2 % (12.1-15.1); White Blood Count 8.36 10^3/uL (3.29-11.43)
[2025-02-27 00:24] LABS: Alanine Aminotransferase 24 U/L (0-41); Albumin Level 4.2 g/dL (3.5-5.2); Alkaline Phosphatase 102 U/L (40-130); Anion Gap 15.8 (5-19); Aspartate Amino Transferase 25 U/L (0-40); Blood Urea Nitrogen 14 mg/dL (8-23); Calcium 9.1 mg/dL (8.5-10.5); Carbon Dioxide 26 mmol/L (22-29); Chloride 102 mmol/L (98-107); Globulin 2.7 g/dL (1.3-4.6); Glucose 91 mg/dL (65-115); Osmolality Calculated 290 mOsm/kg (285-295); Potassium 3.8 mmol/L (3.5-5.1); Sodium 140 mmol/L (136-145); Total Bilirubin 0.9 mg/dL (0.15-1.2); Total Protein 6.9 g/dL (6.6-8.7)
[2025-02-27 00:25] LABS: Bilirubin Urine Negative (Negative); Blood Urine Negative (Negative); Glucose Urine UA Negative (Normal); Ketones Urine Negative (Negative); Leukocyte Esterase Urine Negative (Negative); Nitrate Urine Negative (Negative); Protein Urine Negative (Negative); Specific Gravity, Urine 1.012 (1.005-1.030); Urine Appearance Clear (CLEAR); Urine Color Yellow (Yellow); Urobilinogen Urine 0.2 mg/dL (Negative)
[2025-02-27 00:30] LABS: Add Urine Microscopic? YES; Bacteria Urine None Seen /hpf; Hyaline Casts Urine 0.81 /lpf; RBC Urine 0-2 /hpf (0-2); Squamous Epithelial Cell Urine 0-5 /hpf (0-5); WBC Urine 0-5 /hpf (0-5)
[2025-02-27 00:48] VITALS: BP 152/88; PULSE 58; RESP 16; O2SAT 96
--- NOTE | 2025-02-27 00:53 | W.ED.MALEGU ---
HPI - Male Genitourinary General: Chief complaint: Urogenital-Male Stated complaint: suddenly cant pee Time Seen by Provider: 02/26/25 23:43 History of Present Illness: 74-year-old male with a history of urosepsis in the past. He presents with urgency, full feeling in his bladder, and a brief feeling of aches at home. He denies fever. No vomiting. He states that he drank quite a bit of fluid at home, and should have urinated more by now. Related Data Home Medications ?Medication ?Instructions ?Recorded ?Confirmed aspirin 81 mg tablet,delayed 81 mg PO BEDTIME 02/16/20 08/10/24 release atorvastatin 80 mg tablet 80 mg PO BEDTIME 05/23/23 08/10/24 lisinopril 20 mg tablet 20 mg PO BEDTIME 05/23/23 08/10/24 multivitamin 1 tab PO BEDTIME 05/23/23 08/10/24 Previous Rx's ?Medication ?Instructions ?Recorded amoxicillin 875 mg-potassium 1 tab PO BID #14 tabs 02/27/25 clavulanate 125 mg tablet tamsulosin 0.4 mg capsule (Flomax) 0.4 mg PO DAILY #10 caps 02/27/25 Allergies Allergy/AdvReac Type Severity Reaction Status Date / Time diphenhydramine (From Allergy ALGY-Fever Verified 08/10/24 14:13 Benadryl) PFS ED PFSH: Medical History Obesity Syncope 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 Acute prostatitis Hypokalemia Anxiety Venous insufficiency Dyslipidemia ASHD (arteriosclerotic heart disease) Surgical History S/P PTCA (percutaneous transluminal coronary angioplasty) Family History Father , AGE 64 CAD (coronary artery disease) Myocardial infarction Social History Smoking and tobacco/nicotine status: never used tobacco/nicotine Marital status: service: No Current occupational status: employed Physical Exam Const: COMMON NORMALS: no acute distress GENERAL APPEARANCE: cooperative; not ill appearing and not frail appearing HENMT: COMMON NORMALS: normocephalic, atraumatic and Normal external nose present HEAD & SCALP: normocephalic and atraumatic FACE & SINUS: normal facial exam and face symmetric NOSE: Normal external nose present Eye: COMMON NORMALS: Equal, round and reactive pupils present and EOMs intact bilaterally PUPIL: Yes Equal, round and reactive pupils present Neck/C-Spine: GENERAL: Yes trachea midline Chest: CHEST: Yes Symmetrical chest wall rise Resp: COMMON NORMALS: normal respiratory effort, No retractions, No use of accessory muscles and clear to auscultation bilaterally AUSCULTATION: clear to auscultation bilaterally Cardio: COMMON NORMALS: regular rate and regular rhythm RATE: regular rate RHYTHM: regular rhythm GI: COMMON NORMALS: Normal to inspection, nondistended, normoactive bowel sounds present Extremity: COMMON NORMALS: no pedal edema Neuro: [place] COMA SCALE: document GCS findings [place] coma scale eye opening: Spontaneous [place] coma scale verbal response: Orientated [place] coma scale motor response: Obey commands [place] coma scale total score: 15 SENSORY EXAM: Yes extremities (intact) Psych: COMMON NORMALS: speech normal SPEECH: Yes normal speech Skin: COMMON NORMALS: no rashes or lesions noted GENERAL SKIN EXAM: no rashes or lesions noted Course Vital Signs: Vital signs: Vital Signs Temperature 98.0 F 02/26/25 21:52 Pulse Rate 58 L 02/27/25 01:06 Respiratory Rate 17 02/27/25 01:06 Blood Pressure 163/90 02/27/25 01:06 Pulse Oximetry 95 02/27/25 01:06 Oxygen Delivery Me thod Room Air 02/27/25 00:48 MDM - Male Medical Decision Making Urinalysis reveals no evidence of infection. CBC and BMP are normal. Vitals are stable. He has been on penicillin VK for tooth root canal. We will switch him to Augmentin, for coverage of urinary tract infection symptoms. Will place him on Flomax for the urgency. Needs to return for any worsening symptoms despite treatment. Lab Data 02/26/25 00:01 02/26/25 00:01 Laboratory Results WBC 8.36 10^3/uL (3.29-11.43) 02/26/25 00:01 RBC 4.09 10^6/uL (3.85-5.65) 02/26/25 00:01 Hgb 13.30 g/dL (11.27-16.99) 02/26/25 00:01 Hct 38.2 % (37-53) 02/26/25 00:01 MCV 93.4 fl (82-101) 02/26/25 00:01 MCH 32.5 pg (27-33) 02/26/25 00:01 MCHC 34.8 g/dL (30-55) 02/26/25 00:01 RDW 13.2 % (12.1-15.1) 02/26/25 00:01 Plt Count 172 10^3/cmm (157-399) 02/26/25 00:01 MPV 10.3 fL (7.4-10.4) 02/26/25 00:01 Neut % (Auto) 60.9 % 02/26/25 00:01 Lymph % (Auto) 29.5 % 02/26/25 00:01 [place] % (Auto) 6.3 % 02/26/25 00:01 Eos % (Auto) 2.5 % 02/26/25 00:01 Baso % (Auto) 0.6 % 02/26/25 00:01 Neut # (Auto) 5.08 10^3/uL (1.8-7.7) 02/26/25 00:01 Lymph # (Auto) 2.5 10^3/uL (0.8-4.8) 02/26/25 00:01 [place] # (Auto) 0.5 10^3/uL (0.2-0.9) 02/26/25 00:01 Eos # (Auto) 0.2 10^3/uL (0.0-0.8) 02/26/25 00:01 Baso # (Auto) 0.1 10^3/uL (0.0-0.1) 02/26/25 00:01 Nucleated RBC % (auto) 0 % 02/26/25 00:01 Nucleated RBCs # 0.0 /100WBC 02/26/25 00:01 Sodium 140 mmol/L (136-145) 02/26/25 00:01 Potassium 3.8 mmol/L (3.5-5.1) 02/26/25 00:01 Chloride 102 mmol/L (98-107) 02/26/25 00:01 Carbon Dioxide 26 mmol/L (22-29) 02/26/25 00:01 Anion Gap 15.8 (5-19) 02/26/25 00: BUN 14 mg/dL (8-23) 02/26/25 00:01 Creatinine 1.1 mg/dL (0.7-1.2) 02/26/25 00:01 GFR Calculation Not Reportable 02/26/25 00: Glucose 91 mg/dL (65-115) 02/26/25 00: Calculated Osmolality 290 mOsm/kg (285-295) 02/26/25 00: Calcium 9.1 mg/dL (8.5-10.5) 02/26/25 00:01 Total Bilirubin 0.9 mg/dL (0.15-1.2) 02/26/25 00: AST 25 U/L (0-40) 02/26/25 00: ALT 24 U/L (0-41) 02/26/25 00:01 Alkaline Phosphatase 102 U/L (40-130) 02/26/25 00: Total Protein 6.9 g/dL (6.6-8.7) 02/26/25 00: Albumin 4.2 g/dL (3.5-5.2) 02/26/25 00: Globulin 2.7 g/dL (1.3-4.6) 02/26/25 00:01 Urine Color Yellow (Yellow) 02/27/25 00: Urine Appearance Clear (CLEAR) 02/27/25 00: Urine pH 5.0 (5-7) 02/27/25 00: Ur Specific [place] 1.012 (1.005-1.030) 02/27/25 00: Urine Protein Negative (Negative) 02/27/25 00: Urine Glucose (UA) Negative (Normal) 02/27/25 00: Urine Ketones Negative (Negative) 02/27/25 00: Urine Blood Negative (Negative) 02/27/25 00: Urine Nitrate Negative (Negative) 02/27/25 00: Urine Bilirubin Negative (Negative) 02/27/25 00: Urine Urobilinogen 0.2 mg/dL (Negative) 02/27/25 00: Ur Leukocyte Esterase Negative (Negative) 02/27/25 00:01 Urine RBC 0-2 /hpf (0-2) 02/27/25 00:01 Urine WBC 0-5 /hpf (0-5) 02/27/25 00:01 Ur Squamous Epith Cells 0-5 /hpf (0-5) 02/27/25 00:01 Amorphous Sediment Not Reportable 02/27/25 00:01 Urine Bacteria None seen /hpf (NONE) 02/27/25 00:01 Hyaline Casts 0.81 /lpf 02/27/25 00:01 No radiology studies performed this visit Discharge Plan Discharge Patient Disposition: Home Clinical Impression: Urgency of urination Condition: Stable Prescriptions: New amoxicillin-pot clavulanate 875-125 mg tablet 1 tab PO BID Qty: 14 0RF tamsulosin [Flomax] 0.4 mg capsule 0.4 mg PO DAILY Qty: 10 0RF No Action aspirin 81 mg tablet,delayed release (DR/EC) 81 mg PO BEDTIME multivitamin Tablet 1 tab PO BEDTIME atorvastatin 80 mg tablet 80 mg PO BEDTIME lisinopril 20 mg tablet 20 mg PO BEDTIME Discharge Orders: Discharge ED (Routine); Ordered 02/27/25 Ordered By: Aurelio Gonzalez Referrals: Herber Hernandez MD [Primary Care Provider, Family Practice] - 1-3 days Patient Instructions: Urinary Urgency and Frequency (DC), Opioid Safety, Pain Management, Patient Portal & Stephane Instructions Activity Restrictions/Additional Instructions: Stop the penicillin you have been taking, in favor of the prescribed antibiotic. Take the tamsulosin as directed. This may help with your urge to urinate as well. Return for fever, vomiting, body aches, worsening pain with urination, any other concerning symptoms. Follow-up with your doctor next week. Call Friday for a follow-up appointment and repeat urinalysis. Print Language: Mohawk Coding Level of Care Code ED Medical Staff Coordinator for Leandra Anthony
[2025-02-27] MEDS: amoxicillin-clav 875-125 mg Tablet 1 TAB PO (01:02)
[2025-02-27 01:06] VITALS: BP 163/90; PULSE 58; RESP 17; O2SAT 95
== END 2025-02-27 01:07 | disposition home or self-care (01) ==
PROVIDERS: Emergency Medicine; Emergency Provider Emergency Medicine; PCP Family Medicine
DX: R33.9 Retention of urine, unspecified (principal); E78.5 Hyperlipidemia, unspecified
CPT/HCPCS: 36415; 51798; 80053; 81001; 85025; 99283; J9999

== ENCOUNTER → 2025-03-30 07:00 | Outpatient (BNVA) | payer MEDICARE, OTHER, SELFPAY | PROVIDERS: PCP Family Medicine; Visit Provider Podiatrist Foot & Ankle Surgery | DX: S91.332A Puncture wound without foreign body, left foot, initial encounter (principal); W25.XXXA Contact with sharp glass, initial encounter | CPT/HCPCS: 28190; 99203 ==

== ENCOUNTER → 2025-05-31 14:41 | Outpatient (BNVA) | payer MEDICARE, OTHER, SELFPAY | PROVIDERS: PCP Family Medicine; Visit Provider Nurse Practitioner Family | DX: L21.8 Other seborrheic dermatitis (principal); L72.0 Epidermal cyst; L57.8 Other skin changes due to chronic exposure to nonionizing radiation; X32.XXXA Exposure to sunlight, initial encounter; L81.4 Other melanin hyperpigmentation; D18.01 Hemangioma of skin and subcutaneous tissue; L91.8 Other hypertrophic disorders of the skin; L82.0 Inflamed seborrheic keratosis; L29.89 Other pruritus | CPT/HCPCS: 17110; 99214 ==

== ENCOUNTER 2025-07-12 03:22 | Observation (INO) | payer MEDICARE, OTHER, SELFPAY ==
[2025-07-12] VITALS (14 sets, daily range): BP systolic 105–185; BP diastolic 62–106; PULSE 38–75; RESP 17–20; TEMP 36.6–36.7; O2SAT 91–99
--- NOTE | 2025-07-12 03:24 | XRR_ITS ---
PROCEDURE INFORMATION: Exam: XR Chest Exam date and time: 07/12/2025 3:24 AM Age: 75 years old Clinical indication: Pain; Angina pectoris; Prior surgery; Surgery date: 6+ months; Surgery type: Stent placed 19 years ago; Additional info: Cp TECHNIQUE: Imaging protocol: Radiologic exam of the chest. Views: 1 view. COMPARISON: CR XR chest 1V portable [id number] 05/23/2023 7:29 AM FINDINGS: Lungs: Unremarkable. No consolidation. Pleural spaces: Unremarkable. No pleural effusion. No pneumothorax. Heart/Mediastinum: Unremarkable. No cardiomegaly. Bones/joints: Unremarkable. XR/XR chest 1V portable [id number] IMPRESSION: No acute findings.
--- NOTE | 2025-07-12 03:29 | ECG_ITS ---
[facility] Test Date: 2025-07-12 Pat Name: Herb Chanel Department: Room: Gender: Male Process Mold Technician: : 1950 Requested By: Simone Keene Order Number: [id number] Meryl MD: Duc Anaya M.D. Measurements Intervals [place] Rate: 69 P: 35 MT: 156 QRS: 1 QRSD: 89 T: 24 QT: 369 QTc: 396 Interpretive Statements SINUS RHYTHM WITH MARKED SINUS ARRHYTHMIA ST ELEVATION CONSISTENT WITH TYPE 3 BRUGADA PATTERN [COVED/SADDLEBACK ST ELEVATION > 0.1mV IN 2 OF V1-3] Compared to ECG 05/24/2023 07:58:22 Junctional rhythm no longer present Ventricular premature complex(es) no longer present Electronically Signed On 07-13-2025 20:35:04 PRESS BUCKER by Duc Anaya M.D. [email or web address]
--- NOTE | 2025-07-12 03:30 | W.ED.CHESTPA ---
HPI - Chest Pain General: Chief Complaint: Chest Pain Stated Complaint: CP Time Seen by Provider: 07/12/25 03:25 Source: patient Mode of arrival: ambulatory Limitations: no limitations History of Present Illness: 75-year-old male states that he had eaten late at night went to bed at 1030 states he had woke up at roughly 2 with burning sensation in his chest he states that when he sits up or stands pain improves. States he still has a burning type pain he rates a 2 out of 10. He denies any shortness of breath denies any nausea denies any radiation of his pain Related Data Home Medications ?Medication ?Instructions ?Recorded ?Confirmed aspirin 81 mg tablet,delayed 81 mg PO BEDTIME 02/16/20 03/30/25 release atorvastatin 80 mg tablet 80 mg PO BEDTIME 05/23/23 03/30/25 lisinopril 20 mg tablet 20 mg PO BEDTIME 05/23/23 03/30/25 multivitamin 1 tab PO BEDTIME 05/23/23 03/30/25 Allergies Allergy/AdvReac Type Severity Reaction Status Date / Time diphenhydramine (From Allergy ALGY-Fever Verified 03/30/25 06:26 Benadryl) Review of Systems Card: Reports: chest pain [facility] ED PFSH: Medical History Obesity Syncope 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 Acute prostatitis Hypokalemia Anxiety Venous insufficiency Dyslipidemia ASHD (arteriosclerotic heart disease) Surgical History S/P PTCA (percutaneous transluminal coronary angioplasty) Family History Father , AGE 64 CAD (coronary artery disease) Myocardial infarction Social History Smoking and tobacco/nicotine status: never used tobacco/nicotine Marital status: service: No Current occupational status: employed Physical Exam Const: COMMON NORMALS: no acute distress, patient oriented x3 and healthy appearing HENMT: COMMON NORMALS: normocephalic and atraumatic HEAD & SCALP: normocephalic and atraumatic Neck/C-Spine: COMMON NORMALS: full ROM and supple Chest: COMMONS NORMALS: normal inspection of the chest and normal palpation of entire chest wall Resp: COMMON NORMALS: normal respiratory effort, No retractions, No use of accessory muscles and clear to auscultation bilaterally AUSCULTATION: clear to auscultation bilaterally Cardio: COMMON NORMALS: regular rate, regular rhythm and No murmurs present (Cardio) RATE: regular rate RHYTHM: regular rhythm GI: COMMON NORMALS: Normal to inspection, nondistended, normoactive bowel sounds present, Soft to palpation, non-tender and no masses PALPATION: Yes Soft to palpation Extremity: COMMON NORMALS: normal to inspection and full ROM Neuro: COMMON NORMALS: patient oriented x3, moves all extremities and no focal motor deficits Psych: COMMON NORMALS: mental status grossly normal, Normal thought process present and cooperative THOUGHT PROCESS: Normal thought process present Skin: COMMON NORMALS: no rashes or lesions noted and no wounds GENERAL SKIN EXAM: no rashes or lesions noted Course Vital Signs: Vital signs: Vital Signs Temperature 98.1 F 07/12/25 03:25 Pulse Rate 56 L 07/12/25 04:30 Respiratory Rate 20 H 07/12/25 03:25 Blood Pressure 127/73 07/12/25 04:30 Pulse Oximetry 96 07/12/25 04:30 Oxygen Delivery Me thod Room Air 07/12/25 04:30 MDM - Chest Pain Medical Decision Making Patient presents for chest pain differential includes pulm embolism, reflux, ACS, aortic dissection. His pain has been atypical pain was relieved with GI cocktail and likely reflux. I did go over his EKG here with cardiology and interpreted myself EKG showed normal sinus heart rate 69 no STEMI does have Brugada patterns QRS 89 QTc 387. Did review chest x-ray showed no acute abnormalities. He has no signs of dissection or pulm embolism. His initial troponin here was negative. . Had some bradycardia down to the 30s and spoke to job checker again Dr. Romero who recommended admission for ops to monitor his heart rate did speak to Dr. Fabian who will admit Dr. Camp is consulted I did go over all these findings with patient will admit for observation he understands agrees Medical Records I reviewed the patient's medical records. Lab Data I reviewed the patient's lab results. 07/12/25 03:33 07/12/25 03:33 Radiology Impressions Chest X-Ray 07/12/25 03:24 IMPRESSION: No acute findings. Laboratory Results WBC 7.76 10^3/uL (3.29-11.43) 07/12/25 03:33 RBC 4.72 10^6/uL (3.85-5.65) 07/12/25 03:33 Hgb 14.80 g/dL (11.27-16.99) 07/12/25 03:33 Hct 43.4 % (37-53) 07/12/25 03:33 MCV 91.9 fl (82-101) 07/12/25 03:33 MCH 31.4 pg (27-33) 07/12/25 03:33 MCHC 34.1 g/dL (30-55) 07/12/25 03:33 RDW 12.8 % (12.1-15.1) 07/12/25 03:33 Plt Count 200 10^3/cmm (157-399) 07/12/25 03:33 MPV 10.0 fL (7.4-10.4) 07/12/25 03:33 Neut % (Auto) 59.8 % 07/12/25 03:33 Lymph % (Auto) 30.9 % 07/12/25 03:33 [place] % (Auto) 6.4 % 07/12/25 03:33 Eos % (Auto) 2.1 % 07/12/25 03:33 Baso % (Auto) 0.5 % 07/12/25 03:33 Neut # (Auto) 4.64 10^3/uL (1.8-7.7) 07/12/25 03:33 Lymph # (Auto) 2.4 10^3/uL (0.8-4.8) 07/12/25 03:33 [place] # (Auto) 0.5 10^3/uL (0.2-0.9) 07/12/25 03:33 Eos # (Auto) 0.2 10^3/uL (0.0-0.8) 07/12/25 03:33 Baso # (Auto) 0.0 10^3/uL (0.0-0.1) 07/12/25 03:33 Nucleated RBC % (auto) 0 % 07/12/25 03:33 Nucleated RBCs # 0.0 /100WBC 07/12/25 03:33 PT 12.40 SECONDS (12.1-14.9) 07/12/25 03:33 INR 0.87 (0.8-1.2) 07/12/25 03:33 Sodium 142 mmol/L (136-145) 07/12/25 03:33 Potassium 3.9 mmol/L (3.5-5.1) 07/12/25 03:33 Chloride 103 mmol/L (98-107) 07/12/25 03:33 Carbon Dioxide 28 mmol/L (22-29) 07/12/25 03:33 Anion Gap 14.9 (5-19) 07/12/25 03:33 BUN 13 mg/dL (8-23) 07/12/25 03:33 Creatinine 1.0 mg/dL (0.7-1.2) 07/12/25 03:33 GFR Calculation Not Reportable 07/12/25 03:33 Glucose 112 mg/dL (65-115) 07/12/25 03:33 Calculated Osmolality 295 mOsm/kg (285-295) 07/12/25 03:33 Calcium 9.3 mg/dL (8.5-10.5) 07/12/25 03:33 Total Bilirubin 0.5 mg/dL (0.15-1.2) 07/12/25 03:33 AST 26 U/L (0-40) 07/12/25 03:33 ALT 28 U/L (0-41) 07/12/25 03:33 Alkaline Phosphatase 134 U/L (40-130) H 07/12/25 03:33 Troponin T Baseline 13 ng/L (0-15) 07/12/25 03:33 Total Protein 6.7 g/dL (6.6-8.7) 07/12/25 03:33 Albumin 4.4 g/dL (3.5-5.2) 07/12/25 03:33 Globulin 2.3 g/dL (1.3-4.6) 07/12/25 03:33 Lipase 46 U/L (13-60) 07/12/25 03:33 All radiology interpretation(s) finalized by discharge EKG Data EKG 1: I personally reviewed and interpreted this EKG as follows: EKG interpretation date: 07/12/25 EKG interpretation time: 03:29 Interpretation: nsr hr 69 no stemi brugada pattern qrs 89 qtc 387 Discharge Plan Discharge Condition: Stable Coding Level of Care Code ED Supervisor Quilting for Chg Fwd Heart Score HEART Score Components History: Slightly Suspicous EKG: Normal Age: 65 or more yrs Risk Factors: 1 or 2 Risk Factors Troponin: Baseline Trop <16 ng/L HEART Score RESULT HEART Score: 3
--- OUTSIDE RECORDS SUMMARY | 2025-07-12 03:31 | XMS_ITS | Encounter Summary ---
Author Organization [facility] Address [address] [place] [address] Care Team Providers Care Blow Pit Operator Name Role Phone Mac Murray MD Primary Care Provider Unavailab le Encounter Details Date Type Department Care Team (Latest Contact Info) Description 02/24/2008 Outpatient Historical [facility] Cardiac Grocery Clerk Stocking [address] [place] [address] Cody Maloney MD [address] [address] Nonspecific Abnormal Unspecified Cardiovascular Function Study; Coronary Atherosclerosis of [place] Coronary Artery; Old Myocardial Infarction; Postsurgical Percutaneous Transluminal Coronary Angioplasty Status; Other and Unspecified Hyperlipidemia Social History Tobacco Use Types Packs/Day Years Used Date Smoking Tobacco: Never Assessed Sex and Gender Information Value Date Recorded Sex Assigned at Not on file Legal Sex Male 4:50 AM HADOOP ARCHITECT Gender Identity Not on file Sexual [...] CDT) POTASSIUM 4.3 3.5 - 5.0 mEq/L [facility] OSMOLALITY, CALCULATED 295 275 - 295 mOsm/Kg [facility] CREATININE 0.9 0.7 - 1.5 mg/dL [facility] CALCIUM 9.9 8.4 - 10.5 mg/dL [facility] GLUCOSE 106 70 - 110 mg/dL [facility] CHLORIDE 108 95 - 110 mEq/L [facility] ANION GAP 10 9 - 20 mEq/L [facility] SODIUM 143 136 - 145 mEq/L [facility] BUN 14 9 - 20 mg/dL [facility] CO2 29 22 - 32 mmol/l [facility] Blood specimen (specimen) 02/26/2008 10:46 AM CDT 02/26/2008 10:46 AM CDT Cody Maloney MD CHEMISTRY ORDERABLES Final Resul t [facility] CLIA# [id number] [address] [place] [id number] * PT AND APTT (02/26/2008 10:46 AM CDT) PROTIME 13.1 12.8 - 15.8 Secs [facility] Comment:As of 2007 not e change in normal range. PTT 28.7 22.5 - 36.5 Secs [facility] Comment: Therapeutic Range: Hi-level PE/DVT heparin protocol 80.1 -95.0 sec Lo-level PE/DVT heparin protocol 67.1 - 80.0 sec Cardiac Heparin Protocol 67.1 - 85.0 sec Neuro Heparin Protocol 67.1 - 80.0 sec As of 11/19/2007 note change in APTT Normal Range. INR 0.9 [facility] Comment: Expected Values for INR: DVT/PE Goal INR 2.5; range 2.0 - 3.0 Valve Replacement Tissue Goal INR 2.5; range 2.0 - 3.0 Mechanical Goal INR 3.0; range 2.5 - 3.5 POST-WI Goal INR 2.5; range 2.0 - 3.0 or Goal 3.0; range 2.5 - 3.5 Atrial Fibrillation Goal INR 2.5; range 2.0 - 3.0 Ischemic Stroke Goal INR 2.5; range 2.0 - 3.0 For additional information see Guidelines for Anticoagulation available from the pharmacy [facility] [phone] Blood specimen (specimen) 02/26/2008 10:46 AM CDT 02/26/2008 10:46 AM CDT Cody Maloney MD HEMATOLOGY ORDERABLES Edited Performing Organization Address [facility] de Phone Number [facility] CLIA# [id number] [address] [place] [id number] * (ABNORMAL) CBC WITHOUT DIFFERENTIAL (02/26/2008 10:42 AM CDT) HEMATOCRIT 37.9(L) 41.0 - 53.0 % [facility] RBC 4.09(L) 4.60 - 6.20 Mil/ul [facility] PLATELETS 168 140 - 440 K/ul [facility] HEMOGLOBIN 13.0(L) 14.0 - 18.0 g/dL [facility] WBC 5.6 4.8 - 10.8 K/ul [facility] Blood specimen (specimen) 02/26/2008 10:42 AM CDT 02/26/2008 10:46 AM CDT us Cody Maloney MD HEMATOLOGY ORDERABLES Final Resu lt Performing Organization Address [facility] de Phone Number [facility] CLIA# [id number] [address] [place] [id number] documented in this encounter Visit Diagnoses Diagnosis Nonspecific abnormal unspecified cardiovascular function study Coronary atherosclerosis of [place] coronary artery Old myocardial infarction Postsurgical percutaneous transluminal coronary angioplasty status Other and unspecified hyperlipidemia documented in this encounter Care Teams Blow Pit Operator Relationship Specialty Start Date End Date Mac Murrya MD PCP - General Play Writer 02/18/11 documented as of this encounter
--- OUTSIDE RECORDS SUMMARY | 2025-07-12 03:31 | XMS_ITS | Encounter Summary ---
Author Organization [facility] Address [address] [place] [address] Care Team Providers Care Forest Fire Specialist Supervisor Name Role Phone Mac Murray MD Primary Care Provider Unavailab le Encounter Details Date Type Department Care Team (Latest Contact Info) Description 02/24/2007 Outpatient Historical [facility] Cardiology Ancillary Services-[place] [address] [place] [address] Cody Maloney MD [address] [facility] [address] [place] [address] Other and Unspecified Angina Pectoris (Primary Dx); Coronary Atherosclerosis of [place] Coronary Artery; Nonspecific Abnormal Electrocardiogram (ECG) (EKG) Social History Tobacco Use Types Packs/Day Years Used Date Smoking Tobacco: Never Assessed Sex and Gender Information Value Date Recorded Sex Assigned at Not on file Legal Sex Male 4:50 AM NETEZZA DEVELOPER Gender Identity Not on file Sexual Orientation [...] significant ischemia noted. jaw Dictated By: CODY MALNOEY Electronically Signed By: CODY MALONEY Date Signed: 02/25/07 JAW us Cody CUADRA ORDERABLES Final Result INTERFACE SYSTEM Refer to clinic/hospital department * NM MYOCARD PERF IMAG SPECT MULT (02/24/2007 8:30 AM CDT) 02/24/2007 8:30 AM CDT Narrative INTERFACE SYSTEM - 02/24/2007 8:30 AM CDT CARDIAC STRESS TEST WITH TREADMILL, MONITORING AND INTERPRETATION: Indication: Chest pain, ASHD, old [place], PCI LAD 05/2006, hypertension, and hyperlipidemia. Resting [...] AND INTERPRETATION: Indication: Chest pain, ASHD, old [place], PCI LAD 05/2006, hypertension, andhyperlipidemia. Resting blood [...] unspecified angina pectoris- Primary Coronary atherosclerosis of [place] coronary artery Nonspecific abnormal electrocardiogram (ECG) (EKG) documented in this encounter Care Teams Forest Fire Specialist Supervisor Relationship Specialty Start Date End Date Mac Murray MD PCP - General Cad Detailer 02/18/11 documented as of this encounter
--- OUTSIDE RECORDS SUMMARY | 2025-07-12 03:32 | XMS_ITS | Encounter Summary ---
Author Organization [facility] Address [address] [place] [address] Care Team Providers Care Bilingual Sales Assistant Name Role Phone Mac Murray MD Primary Care Provider Unavailab le Encounter Details Date Type Department Care Team (Latest Contact Info) Description 11/15/1999 Outpatient Historical [facility] and [facility]- [place] [address] [place] [address] Bentley Matson MD NO ADDRESS ON FILE Anemia, unspecified (Primary Dx) Social History Tobacco Use Types Packs/Day Years Used Date Smoking Tobacco: Never Assessed Sex and Gender Information Value Date Recorded Sex Assigned at Not on file Legal Sex Male 4:50 AM ICT TEACHER Gender Identity Not on file Sexual Orientation Not on file documented as of this encounter Plan of Treatment Not on file documented as of this encounter Visit Diagnoses Diagnosis Anemia, unspecified- Primary documented in this encounter Care Teams Bilingual Sales Assistant Relationship Specialty Start Date End Date Mac Murray MD PCP - General [place] Attendant 02/18/11 documented as of this encounter
--- OUTSIDE RECORDS SUMMARY | 2025-07-12 03:32 | XMS_ITS | Data Portability ---
Author Organization [facility], L[facility]LKrystian, [facility] Address [address] [facility] [address] [place] [address] Care Team Providers Care Assessment Technician Name Role Phone NANETTE HERNANDEZ Primary Care Provider Assessment No assessment recorded. Plan of Treatment Reminders Order Date Submit Date Provider Last Modified By Organization Details Last Modified Time Details Appointments None recorded. Lab None recorded. Referral None recorded. Procedures None recorded. Surgeries None recorded. Imaging None recorded. Medication Orders amoxicillin 875 mg tablet 2023 025 [facility], [address], [place], [address], 5 10:05:24 cefdinir 300 mg capsule 2023 024 [facility], [address], [place], [address], 4 13:11:59 Patient TargetsNo targets recorded. Patient InstructionsNo instructions recorded. Reason for Referral None Reported. 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 5 17:02:39 Sepsis 95030507 Active 2022 Nanette Hernandez MD [address] [place] [address], [address] 5, [facility] 3 10:10:00 Allergic rhinitis 01317589 Active 2022 Nanette Hernandez MD [address] [place] [address], [phone] 5, [facility] 3 10:22:26 Coronary atheroscl erosis 256201123 Active 2022 Nanette Hernandez MD [address] [place] [address], [address] 5, [facility] 3 12:19:13 Essential hypertens ion 12069160 Active 2022 Nanette Hernandez MD [address] [place] [address], [address] 5, [facility] 3 12:22:48 Obstructi ve sleep apnea syndrome 07198514 Active 2023 Nanette Hernandez MD [address] [place] [address], [address] 5, [facility] 4 13:05:47 Hyperlipi demia 21167971 Active 2023 Nanette Hernandez MD [address] [place] [address], [address] 5, [facility] 4 08:41:37 Morbid obesity 915395725 Active 2023 Nanette Hernandez MD [address] [place] [address] [place] [address] 5, [facility], L.L.CTrinity 4 08:43:42 Celluliti s of right lower limb 505204878656 95052 Active 2023 Nanette Hernandez MD [address] [place] [address], [address] [place] [address] 5, [facility], Kip 12:51:19 Edema of lower extremity 000710884 Active 2023 Nanette Hernandez MD [address] [place] [address], [address] [place] [address] 5, [facility], AmandaCTrinity 14:42:37 Actinic keratosis 602628564 Active 2024 Nanette Hernandez MD [address] [place] [address], [address] [place] [address] 5, [facility], AmandaCTrinity 13:44:32 Seborrhei c keratosis 105995691 Active 2024 Nanette Hernandez MD [address] [place] [address], [address] [place] [address] 5, [facility], NicoleLTrinityCTrinity 13:44:40 Problem Notes None recorded. Procedures Surgical History Date Name Laterality Status Provider Name and Address Organization Details Recorded Time Cryo Lesions #2-14 completed Nanette Hernandez MD [address] [place] [address], [phone], [facility], L.L[facility]CT[facility]inity 04/10/2025 13:45:51 Stent completed Frannie Corbett [facility], NicoleLKrystian 07/28/2024 09:13:13 Cataract Surgery completed Frannie Corbett [facility] Toure [facility], NicoleLKrystian 07/28/2024 09:13:32 Imaging Results None recorded. Procedure Notes None recorded. Medical Equipment None Reported. Allergies Allergen ID Allergen Name Allergen Category Reaction Reaction Severity Criticality Documentation Date Start Date Code Code System Note Provider Name and Address Organization Details Recorded Time 68558 Benadryl medicatio n other severe high 04/05/202442478 7 RxNorm CAUSE D A UTI WHICH WENT SEPTI C Franny zeng [facility], Edwin 4 14:09:55 Medications Name Sig Start Date Stop Date Status Note LastModified by Organization Details LastModified Time atorvastati n 80 mg tablet TAKE 1 TABLET BY MOUTH ONCE DAILY active Not Available Not Available No t Available prednisone 10 mg tablet TAKE 4 TABLETS BY MOUTH ONCE DAILY FOR 3 DAYS THEN 3 ONCE DAILY FOR 3 DAYS THEN 2 ONCE DAILY FOR 3 DAYS THEN 1 ONCE DAILY FOR 3 DAYS 05/30 completed Not Available Not Available Not Available clindamycin HCl 300 mg capsule TAKE 1 CAPSULE BY MOUTH TWICE DAILY FOR 7 DAYS 05/31 completed Not Available Not Available Not Available lisinopril 20 mg tablet TAKE 1 TABLET BY MOUTH ONCE DAILY active Not Available Not Available No t Available prednisone 20 mg tablet TAKE 2 TABLETS BY MOUTH ONCE DAILY 05/30 completed Not Available Not Available Not Available penicillin V potassium 500 mg tablet TAKE 1 TABLET BY MOUTH 4 TIMES DAILY 03/10 completed Not Available Not Available Not Available sulfamethox azole 800 mg-trimetho prim 160 mg tablet TAKE 2 TABLETS BY MOUTH TWICE DAILY FOR 10 DAYS 06/07 completed Not Available Not Available Not Available amoxicillin 875 mg tablet Take 1 tablet every 12 hours by oral route for 7 days. 03/10 completed Not Available Not Available Not Available tamsulosin 0.4 mg capsule TAKE 1 CAPSULE BY MOUTH ONCE DAILY 03/10 completed Not Available Not Available Not Available cefdinir 300 mg capsule TAKE 1 CAPSULE BY MOUTH EVERY 12 HOURS FOR 5 DAYS 07/28 completed Not Available Not Available Not Available amoxicillin 875 mg-potassiu m clavulanate 125 mg tablet TAKE 1 TABLET BY MOUTH TWICE DAILY 03/10 completed Not Available Not Available Not Available ciclopirox 0.77 % topical cream APPLY ENOUGH TO COVER TOPICALLY TO AFFECTED AREAS OF FACE AND EARS TWICE DAILY NEEDED active Not Available Not Available No t Available aspirin daily active Not Available Not Avail able Not Available Multivitami ns daily active Not Available Not Available Not Available Vitals Date Recorded Body height Body mass index (BMI) Body weight Oxygen saturation Oxygen saturation in Arterial blood by Pulse oximetry Heart rate Respiratory rate Body temperature Systolic And Diastolic Provider Name and Address Organization Details Last Updated DateTime 5 170.18 cm 35.8 kg/m2 250187. 22 g 96 % 96 % 82 /min 18 /min 97.6 [degF] 120/80 mm[Hg] Frannie Aric [facility] 5 10:04:07 Date Recorded Body height Body mass index (BMI) Body weight Body temperature Heart rate Oxygen saturation Oxygen saturation in Arterial blood by Pulse oximetry Systolic And Diastolic Provider Name and Address Organization Details Last Updated DateTime 5 170.18 cm 35.1 kg/m2 392062. 69 g 97.4 [degF] 69 /min 97 % 97 % 130/70 mm[Hg] Clemencia Owen [facility] 5 12:41:00 Date Recorded Body height Body mass index (BMI) Body weight Oxygen saturation Oxygen saturation in Arterial blood by Pulse oximetry Heart rate Body temperature Systolic And Diastolic Provider Name and Address Organization Details Last Updated DateTime 4 170.18 cm 35 kg/m2 995471. 9 g 99 % 99 % 42 /min 97.9 [degF] 120/62 mm[Hg] Ana Russell [facility] 4 08:11:27 Date Recorded Body height Respiratory rate Body mass index (BMI) Body weight Body temperature Heart rate Oxygen saturation Oxygen saturation in Arterial blood by Pulse oximetry Systolic And Diastolic Provider Name and Address Organization Details Last Updated DateTime 4 170.18 cm 20 /min 35.1 kg/m2 335035. 39 g 97.4 [degF] 54 /min 97 % 97 % 98/60 mm[Hg] TEJAL TUCKER [facility] 4 11:51:33 Date Recorded Body height Body mass index (BMI) Body weight Oxygen saturation Oxygen saturation in Arterial blood by Pulse oximetry Heart rate Respiratory rate Body temperature Systolic And Diastolic Provider Name and Address Organization Details Last Updated DateTime 4 170.18 cm 36.2 kg/m2 548930. 27 g 96 % 96 % 40 /min 16 /min 97.8 [degF] 110/72 mm[Hg] Frannie Corbett [facility] 4 09:11:26 Social History Question Answer Notes LastModified by Organizat ion Details LastModified Time Tobacco Smoking Status Never Smoker SHADIA zeng [facility] 04/05/2024 13:00:48 What Is Your Level Of Caffeine Consumption? Occasional Information not available 04/05/2024 What Was The Date Of Your Most Recent Tobacco Screening? 04/08/2025 [email or web address] Information not available 04/08/2025 Sex: Unknown Functional Status Question Answer Note LastModified by Organizat ion Details LastModified Time Do you use any illicit or recreational drugs? No Information not available 04/05/2024 What is your level of alcohol consumption? None Information not available 04/05/2024 Are you currently employed? Yes Information not available 04/05/2024 Are you able to walk independently without assistance or assistive devices? YESWOREST Information not available 04/05/2024 Are you able to care for yourself independently? Yes Information not available 04/05/2024 Mental Status None recorded. Family History Nothing Reported Notes:Brother: Prostate Canc er Maternal Uncle: Colon Cancer Medical History No medical history recorded. Immunizations Vaccine Type Date Status Note Provider Nam e and Address Organization Details Recorded Time Tdap 4 completed Nanette Hernandez MD [address] [place] [address], [phone], [facility] 06/01/2024 17:20:08 COVID-19, mRNA, LNP-S, PF, 100 mcg/0.5mL dose or 50 mcg/0.25mL dose 1 completed KATRINA zeng [facility] 02/08/2023 09:16:05 COVID-19, mRNA, LNP-S, PF, 30 mcg/0.3 mL dose 1 completed MEGAN Moon [facility], LEdwin 02/08/2023 09:16:05 Influenza, split virus, trivalent, preservative 6 completed Not Available [employer] 05/30/2023 09:57:32 Past Encounters Encounter ID Performer Location Encounter Start Date Encounter Closed Date Diagnosis/Indication Diagnosis SNOMED-CT Code Diagnosis ICD10 Code Diagnosis IMO Codes Diagnosis Note [id number] LOW RAG[place] [facility] ([facility]) [address] [place] [phone] 5 02/08/2023 09:07:25 02/08/2023 10:24:28 Contact dermatitis 76239473 L23.7 Rhus dermatitis [id number] Nanette Hernandez MD [facility] ([facility]) [address] [place] [phone] 5 05/30/2023 09:55:53 05/30/2023 12:38:53 Acute urinary tract infection 382956496 N39.0 Symptoms have resolved. Sepsis 19333002 A41.9 Patient is doing much better at this time and has recovered from his serious illness. Brugada syndrome 6364826 05 I49.8 Continue cardiology follow-up and life vest. She is in the process of getting an appointmen t through [place] as he was already establishe d with them with their [facility] program. History of placement of stent for coronary artery disease 208440874 Z95.5 Continue cardiology follow-up Allergic rhinitis 730402 04 J30.9 Patient has a history of allergies and recommend that he no longer uses Benadryl. Patient currently uses over-the-c ounter Flonase and his symptoms are managed. May consider second-gen eration antihistam ine. Coronary atherosclerosis 622999443 I25.10 Continue statin and aspirin for prevention . Essential hypertension 10735329 I10 Controlled with lisinopril . [id number] Nanette Hernandez MD [facility] ([facility]) [address] [place] [id number] 5 04/05/2024 12:54:50 04/05/2024 13:19:52 Active or passive immunization 543803953 Z23 Essential hypertension 39319645 I10 Blood pressure appears to be doing better with lisinopril . Continue to monitor at home. Obstructiv e sleep apnea syndrome 59945997 G47.33 Discussed options for the treatment of his sleep apnea. The patient to try other masks including a nasal pillow with chinstrap. Discussed inspire device. Coronary atherosclerosis 776016507 I25.10 Continue statin Hyperlipidemia 77056173 E78.5 Morbid obesity 174290887 E66.01 Recommend weight loss and increasing physical activity. [id number] [facility] [address] [place] [address] [id number] 5 05/23/2024 14:01:07 05/23/2024 15:02:42 Infected abrasion of skin of right lower leg 3467867012 1001145 L08.9 Discussed to wash the area with soap and water daily. May apply antibiotic ointment.C an continue to wear compressio n hose.Take antibiotic with food. [id number] Nanette Hernandez MD [facility] ([facility]) [address] [place] [address] [id number] 5 05/31/2024 12:23:41 05/31/2024 13:39:05 Cellulitis of right lower limb 9637416386 8686601 L03.115 Concerned about cellulitis is not well treated. Likely the patient received ceftriaxon e in the ER so we will transition to cefdinir to see if this improves his infection. Step would be IV antibiotic s as he will have failed outpatient treatment. Active or passive immunization 050801563 Z23 We will update tetanus today. [id number] VOLODYMYR CASTRO [facility] ([facility]) [address] [place] [id number] 5 06/07/2024 08:03:05 06/07/2024 13:07:20 Cellulitis of right lower limb 3111434990 6281645 L03.115 Discussed to continue washing with soap and water daily. Will add 5 more days of the cefdinir. [id number] Nanette Hernandez MD [facility] ([facility]) [address] [place] [id number] 5 06/09/2024 11:45:49 06/09/2024 13:19:16 Cellulitis of right lower limb 5321539584 7412238 L03.115 It appears that the infection itself has been treated. Order the issue that the patient continues to have his swelling. This is keeping the wound from healing. Edema of l ower extremity 270501557 R60.0 Since the infection has been treated, I would recommend doing some compressio n therapy. Wound care was discussed with the patient. Patient needs to check over the wound itself and provide compressio n either with compressio n stockings or Vinay bandage. This will help the wound heal. Recommend changing the bandage 2-3 times daily. [id number] VOLODYMYR CASTRO [facility] ([facility]) [address] [place] [address] [phone] 5 07/28/2024 09:04:40 07/28/2024 09:33:21 Acute pansinusitis 5518206 J01.40 Discussed use of antibiotic . Take with food.May use Luis Eduardo's nasal inserts and also apply on chest. Push oral fluids. Consider nasal saline rinses and otc decongesta nt.Use tylenol/mo baldemar for walker. [id number] Nanette Hernandez MD [facility] ([facility]) [address] [place] [address] [id number] 5 03/10/2025 09:55:57 03/10/2025 10:53:00 Acute urinary tract infection 694146363 N39.0 171761 Symptoms have resolved. No further concerns [id number] Nanette Hernandez MD [facility] ([facility]) [address] [place] [address] [id number] 5 04/08/2025 12:32:48 04/08/2025 13:21:43 Essential hypertension 06928810 I10 Blood pressure appears to be doing better with lisinopril . Continue to monitor at home. Coronary atherosclerosis 787852521 I25.10 Continue statin Hyperlipidemia 29154861 E78.5 Morbid obesity 271382007 E66.01 Recommend weight loss and increasing physical activity. Actinic keratosis 749589 007 L57.0 31669 Cryotherap y done today. Seborrheic keratosis 394 012958 L82.1 74260 Will monitor at this time Health Concerns Section Related Observation LastModified by Organization Detai ls LastModified Time None Recorded Concern Status LastModified by Organization Details LastModified Time None Recorded Advance Directives Directive None Recorded Payers Insurance Date Sequence Insurance Name Policy Number Policy Pacheco Covered Member ID Pacheco Member ID Guarantor Name 04/08/2025 1 [place] Herb Chanel [id number] Herb Chanel 04/08/2025 [place] - [place] - [place] ([place]ICARE) Herb Chanel [id number] Herb Chanel 04/13/2025 2 I Had Cancer - RETIREE MEDICAL PLAN - SECONDARY TO MEDICARE Herb Chanel [id number] Herb Chanel Notes Date Note Type Note Provider Name and Address Organization Details Recorded Time 06/07/2024 text/html ROS as noted in the HPI walk in pt.Pt has a wound on right lower leg. Was seen a week ago and finished a round of antibiotics, also seen in [place] ER 3 days ago and had it lanced open. Feels like it's much improved but still has some mild erythema around the incision site. Is wondering if he needs some more antibiotics VOLODYMYR CASTRO [address] [place] [address], [phone], [facility] 06/07/2024 17:23:46 06/09/2024 text/html This is a 73-year-old gentleman that comes in today for follow-up for his right lower leg. The patient had increasing swelling and pain when traveling to [place], so he stopped at the emergency department in [place]. In the emergency department they did imaging did not demonstrate any concerns for osteomyelitis. They did perform an I&D the patient states that it primarily at blood from the wound without significant pus. Patient remained on clindamycin. The patient has had improvement in the pain and redness but still has swelling. Patient is also concerned that the wound itself is not healing. Nanette Hernandez MD [address] [place] [address], [phone], [facility] 06/10/2024 14:43:52 07/28/2024 text/html EaracheReported by PatientROS as noted in the HPI walk in patientPatient has ear problems starting this week. right ear pain. congestion, nasal bleeding. no meds taken for this. VOLODYMYR CASTRO [address] [place], [address], [facility], Emilie. 07/28/2024 09:27:56 03/10/2025 text/html patient here for a hospital f/u for posible UTI. he is finished with his abx and having no more problems Nanette Hernandez MD [address] [place] [address], [phone], [facility], Emilie. 03/12/2025 17:03:57 04/08/2025 text/html Annual WellnessReported by PatientSocial/Behavior al HistoryFor diet and nutrition, patient reportshealthy diet(3 meals per day). For physical activity, patient reportsexercises on a regular basis (pt and workouts with a horse trainer). For additional lifestyle factors, patient reportsno tobacco useandno alcohol intake.Mental Status:For depression risk, patient reportsno history of depression.Functional AbilityFor hearing, patient reportswears hearing aids. For vision, patient reportsno vision problems.ROS as noted in the HPI This 74-year-old gentleman comes in today for routine follow-up and to discuss some things concerns. Patient reports that his chronic medical issues are stable on current medications. Pt would like to discuss some skin concerns on his head and shoulder. Nanette Hernandez MD [address] [place], [address], [facility], LTrinityLChristiano. 04/10/2025 13:46:08
--- OUTSIDE RECORDS SUMMARY | 2025-07-12 03:32 | XMS_ITS | Encounter Summary ---
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
--- OUTSIDE RECORDS SUMMARY | 2025-07-12 03:32 | XMS_ITS | Encounter Summary ---
Author Organization [facility] Address [address] [place] [address] Care Team Providers Care Educational Resource Coordinator Name Role Phone Mac Murray MD Primary Care Provider Unavailab le Encounter Details Date Type Department Care Team (Latest Contact Info) Description 07/15/2006 Outpatient [facility] Cardiology Ancillary Services[facility] [address] [place] [address] Cody Maloney MD [address] [facility] [address] [place] [address] Other Specified Forms of Chronic Ischemic Heart Disease (Primary Dx); Coronary Atherosclerosis of [place] Coronary Artery Social History Tobacco Use Types Packs/Day Years Used Date Smoking Tobacco: Never Assessed Sex and Gender Information Value Date Recorded Sex Assigned at Not on file 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 Gender Identity Not on file Sexual Orientation Not on file documented as of this encounter Plan of Treatment Not on file documented as of this encounter Procedures Procedure Name Priority Date/Time Associated Diagnosis Comments NM CARDIAC MUGA W STRESS Routine 07/15/2006 10:00 AM INDUSTRIAL RADIOGRAPHER documented in this encounter Results * NM CARDIAC MUGA W STRESS (07/15/2006 10:00 AM INDUSTRIAL RADIOGRAPHER) 07/15/2006 10:0 0 AM INDUSTRIAL RADIOGRAPHER Narrative INTERFACE SYSTEM - 07/15/2006 10:00 AM INDUSTRIAL RADIOGRAPHER FIRST-PASS RADIONUCLIDE ANGIOGRAM AND RESTING MUGA SCAN: [...] Signed By: Cody Maloney Date Signed: 07/22/06 [facility] Procedure Note 07/21/2009 FIRST-PASS RADIONUCLIDE [...] ischemic heart disease- Primary Coronary atherosclerosis of [place] coronary artery documented in this encounter Care Teams Educational Resource Coordinator Relationship Specialty Start Date End Date Mac Murray MD PCP - General Mold Maker 02/18/11 documented as of this encounter
--- OUTSIDE RECORDS SUMMARY | 2025-07-12 03:32 | XMS_ITS | Encounter Summary ---
Author Organization [facility] Address [address] [place] [address] Care Team Providers Care Peoplesoft Hcm Developer Name Role Phone Mac Murray MD Primary Care Provider Unavailab le Encounter Details Date Type Department Care Team (Latest Contact Info) Description 07/07/[address] 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
--- OUTSIDE RECORDS SUMMARY | 2025-07-12 03:32 | XMS_ITS | Encounter Summary ---
Author Organization [facility] Address [address] [place] [address] Care Team Providers Care Electrotype Molder Name Role Phone Mac Murray MD Primary Care Provider Unavailab le Encounter Details Date Type Department Care Team (Latest Contact Info) Description 11/15/1999 Outpatient Historical 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
--- OUTSIDE RECORDS SUMMARY | 2025-07-12 03:32 | XMS_ITS | Clinical Summary ---
Author Organization [facility] Address [address] 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 Gender Identity Not on file Sexual Orientation [...] (1 of 2) 2002 INFLUENZA VACCINE (#1) 2025 RSV VACCINE (60+ or ) (1 - 1-dose 75+ series) 2027 Medical Devices Implanted Type Area Wigs Salesperson Device Identifier Shelf Expiration Date Model / Serial / Lot Log [id number] - Micheal Sn60wf - 1 - Lens Io Sn60wf 30.0 Implanted:Qty: 1 on 03/26/2011 Eye Left: Eye [facility] 05/27/2015 SN60WF.30 0 / [id number] / Lens Io Sn60wf 24.5 - [id number] Implanted:Qty: 1 on 02/25/2012 Eye Right: Lens [facility] 08/31/2016 SN60WF.245 / [id number] / Care Teams Insole Tack Puller Hand Relationship Specialty Start Date End Date Mac Murray MD NO ADDRESS ON FILE PCP - General Predatory Animal Exterminator 02/18/11
--- OUTSIDE RECORDS SUMMARY | 2025-07-12 03:32 | XMS_ITS | Encounter Summary ---
Author Organization [facility] Address [address] [place] [address] Care Team Providers Care Sewer Digger Name Role Phone Mac Murray MD Primary Care Provider Unavailab le Encounter Details Date Type Department Care Team (Late st Contact Info) Description 02/28/1998 Outpatient Historical [facility] Dermatology- [address] [place] [address] Chance Hansen MD [address] 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
--- OUTSIDE RECORDS SUMMARY | 2025-07-12 03:32 | XMS_ITS | Clinical Summary ---
Author Organization [facility] Address [address] 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 Eye Left: Eye [facility] 05/27/2015 SN60WF.300 / [id number] / Lens Io Sn60wf 24.5 - [id number] Implanted:Qty: 1 on 02/25/2012 at [facility] Eye Right: Lens [facility] 08/31/2016 SN60WF.245 / [id number] / Insurance RIGHT CHOICE BENEFIT ADMINISTRATION OA Advance Directives For more information, please contact: [phone] * Full Code (Latest Code Status on File) Date Activated Date Inactivated Comments 02/25/2012 7:45 AM 02/26/2012 2:02 AM * Full Code Date Activated Date Inactivated Comments 03/26/2011 10:01 AM 03/27/2011 2:31 AM * Full Code Date Activated Date Inactivated Comments 02/18/2011 3:58 PM 02/19/2011 12:09 PM * Full Code Date Activated Date Inactivated Comments 02/18/2011 2:32 PM 02/18/2011 3:58 PM Care Teams Java Portal Developer Relationship Specialty Start Date End Date Mac Murray MD PCP - General Veterinarian Helper 02/18/11
--- OUTSIDE RECORDS SUMMARY | 2025-07-12 03:32 | XMS_ITS | Encounter Summary ---
Author Organization [facility] Address [address] [place] [address] Care Team Providers Care Wig Sales Consultant Name Role Phone Mac Murray MD Primary Care Provider Unavailab le Encounter Details Date Type Department Care Team (Late st Contact Info) Description 08/19/2007 Outpatient Historical [facility] Cardiology- [place] [address] [place] [address] Cody Maloney MD [address] [address] Social History Tobacco Use Types Packs/Day Years Used Date Smoking Tobacco: Never Assessed Sex and Gender Information Value Date Recorded Sex Assigned at Not on file Legal Sex Male 4:50 AM VIDEO COORDINATOR Gender Identity Not on file Sexual Orientation Not on file documented as of this encounter Plan of Treatment Not on file documented as of this encounter Visit Diagnoses Not on filedocumented in this encounter Care Teams Wig Sales Consultant Relationship Specialty Start Date End Date Mac Murray MD PCP - General Metal Handler 02/18/11 documented as of this encounter
--- OUTSIDE RECORDS SUMMARY | 2025-07-12 03:32 | XMS_ITS | Encounter Summary ---
Author Organization 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 The new reference range is 25-100 The old referance range was 38-126 AST 58(H) 8 - 33 U/L INTERFACE SYSTEM Comment: As of 05 the [facility] has changed testing methods. The new reference range is 8-33 The old referance range was Males 17-59 Females 14-36 ALT 70(H) 4 - 36 IU/L INTERFACE SYSTEM Comment: As of 05 the [facility] has changed testing methods. The new reference range is 4-36 The old referance range was Males 21-72 Females 9-52 BILIRUBIN DIRECT 0.2 0.0 - 0.4 mg/dL INTERFACE SYSTEM BILIRUBIN TOTAL 0.8 0.3 - 1.2 mg/dL INTERFACE SYSTEM Comment: As of 05 the [facility] has changed testing methods. The new [...] ORDERABLES Final Resul t Performing Organization Address City[facility] Phone Number INTERFACE SYSTEM [...] ORDERABLES Final Resul t Performing Organization Address [facility] Phone Number INTERFACE SYSTEM Refer to clinic/hospital department * (ABNORMAL) CK TOTAL, RELATIVE INDEX (05/21/2006 7:39 PM CDT) CK-MB CHEMICAL INDEX 10.0(H) 0.0 - 4.5 INTERFACE SYSTEM 05/21/2006 7:39 PM CDT us Kemi Nunez DO CHEMISTRY ORDERABLES Final Resu lt Performing Organization Address [facility] Phone Number INTERFACE SYSTEM [...] ORDERABLES Final Resu lt Performing Organization Address [facility] Phone Number INTERFACE SYSTEM [...] ORDERABLES Final Resu lt Performing Organization Address [facility] Phone Number INTERFACE SYSTEM Refer to clinic/hospital department * (ABNORMAL) POC ACTIVATED CLOTTING TIME (05/21/2006 2:13 PM CDT) ACT POC 162(H) 79 - 149 sec INTERFACE SYSTEM 05/21/2006 2:13 PM CDT Cody Maloney MD POINT OF CARE TESTING Final Resu lt Performing Organization Address [facility] Phone Number INTERFACE SYSTEM Refer to clinic/hospital department * (ABNORMAL) CK TOTAL, RELATIVE INDEX (05/21/2006 1:05 PM CDT) CK-MB CHEMICAL INDEX 9.4(H) 0.0 - 4.5 INTERFACE SYSTEM 05/21/2006 1:05 PM CDT us Kemi Nunez DO CHEMISTRY ORDERABLES Final Resu lt Performing Organization Address [facility] Phone Number INTERFACE SYSTEM Refer to clinic/hospital department * (ABNORMAL) CK (05/21/2006 1:05 PM CDT) CK 271(H) 38 - 174 U/L INTERFACE SYSTEM Comment: As of [address] [facility] has changed testing methods. The new reference ranges are Males 38-174 Females 26-140 The old referance ranges were Males 0-155 Females 0-133 05/21/2006 1:05 PM CDT Kemi Nunez DO CHEMISTRY ORDERABLES Final Resu Performing Organization Address [facility] Phone Number INTERFACE SYSTEM Refer to clinic/hospital [...] CHEMISTRY ORDERABLES Final Resu Performing Organization Address [facility] Phone Number INTERFACE SYSTEM Refer to clinic/hospital department * (ABNORMAL) POC ACTIVATED CLOTTING TIME (05/21/2006 12:55 PM CDT) ACT POC 197(H) 79 - 149 sec INTERFACE SYSTEM 05/21/2006 12:5 5 PM CDT Cody Maloney MD POINT OF CARE TESTING Final Resu lt Performing Organization Address [facility] Phone Number INTERFACE SYSTEM [...] ORDERABLES Final Resul t Performing Organization Address City/[facility] de Phone Number INTERFACE SYSTEM Refer to clinic/hospital department * (ABNORMAL) HEPATIC FUNCTION PANEL (05/21/2006 10:52 AM CDT) Pathologist [facility] TOTAL PROTEIN 6.7 6.3 - 8.2 g/dL INTERFACE SYSTEM ALBUMIN 4.0 3.5 - 5.0 g/dL INTERFACE SYSTEM ALKALINE PHOSPHATASE 91 25 - 100 U/L INTERFACE SYSTEM Comment: As of 05 the [facility] has changed testing methods. The new reference range is 25-100 The old referance range was 38-126 AST 63(H) 8 - 33 U/L INTERFACE SYSTEM Comment: As of 05 the [facility] has changed testing methods. The new reference range is 8-33 The old referance range was Males 17-59 Females 14-36 ALT 90(H) 4 - 36 IU/L INTERFACE SYSTEM Comment: As of 05 the [facility] has changed testing methods. The new reference range is 4-36 The old referance range was Males 21-72 Females 9-52 BILIRUBIN DIRECT 0.2 0.0 - 0.4 mg/dL INTERFACE SYSTEM BILIRUBIN TOTAL 0.7 0.3 - 1.2 mg/dL INTERFACE SYSTEM Comment: As of 05 the [facility] has changed testing methods. The new reference range is 0.3-1.2 The old referance range was 0.2-1.4 05/21/2006 10:5 2 AM CDT us Cody Maloney MD CHEMISTRY ORDERABLES Final Resul t Performing Organization Address City/[facility] de Phone Number INTERFACE SYSTEM [...] ORDERABLES Final Res ult Performing Organization Address [facility] de Phone Number INTERFACE SYSTEM [...] ORDERABLES Final Res ult Performing Organization Address [facility] de Phone Number INTERFACE SYSTEM [...] Goal INR 3.0; range 2.5 - 3.5 POST-TX Goal INR 2.5; range 2.0 - 3.0 or Goal 3.0; range 2.5 - 3.5 Atrial Fibrillation Goal INR 2.5; range 2.0 - 3.0 Ischemic Stroke Goal INR 2.5; range 2.0 - 3.0 For additional information see Guidelines for Anticoagulation available from the pharmacy Sang Dill D. 05/21/2006 7:30 AM CDT us Kemi Nunez DO HEMATOLOGY ORDERABLES Final Res ult Performing Organization Address [facility] de Phone Number INTERFACE SYSTEM Refer to clinic/hospital department * (ABNORMAL) CK TOTAL, RELATIVE INDEX (05/21/2006 7:30 AM CDT) CK-MB CHEMICAL INDEX 6.7(H) 0.0 - 4.5 INTERFACE SYSTEM 05/21/2006 7:30 AM CDT us Kemi Nunez DO CHEMISTRY ORDERABLES Final Resu lt Performing Organization Address [facility] Phone Number INTERFACE SYSTEM Refer to clinic/hospital department * (ABNORMAL) CK (05/21/2006 7:30 AM CDT) CK 197(H) 38 - 174 U/L INTERFACE SYSTEM Comment: As of [address] [facility] has changed testing methods. The new reference ranges are Males 38-174 Females 26-140 The old referance ranges were Males 0-155 Females 0-133 05/21/2006 7:30 AM CDT Kemi Nunez DO CHEMISTRY ORDERABLES Final Resu Performing Organization Address [facility] Phone Number INTERFACE SYSTEM Refer to clinic/hospital [...] ORDERABLES Final Resu lt Performing Organization Address [facility] Phone Number INTERFACE SYSTEM [...] infarction, subendocardial infarction, initial episode of care (CMS/[facility])- Primary Acute myocardial infarction, subendocardial infarction, initial episode of care documented in this encounter Care Teams Planning Coordinator Relationship Specialty Start Date End Date Mac Murray MD PCP - General Real Estate Salesperson 02/18/11 documented as of this encounter
--- OUTSIDE RECORDS SUMMARY | 2025-07-12 03:32 | XMS_ITS | Encounter Summary ---
Author Organization [facility] Address [address] [place] [address] Care Team Providers Care Brass Plater Name Role Phone Mac Murray MD Primary Care Provider Unavailab le Encounter Details Date Type Department Care Team (Latest Contact Info) Description 02/10/2007 Outpatient Historical [facility] Cardiology- [place] [address] [place] [address] Cody Maloney MD [address] [facility] [address] [place] [address] Coronary Atherosclerosis of [place] Coronary Artery (Primary Dx); Unspecified Hypertensive Heart Disease without Heart Failure; Old Myocardial Infarct; Other and Unspecified Angina Pectoris Social History Tobacco Use Types Packs/Day Years Used Date Smoking Tobacco: Never Assessed Sex and Gender Information Value Date Recorded Sex Assigned at Not on file 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
[2025-07-12] MEDS: lidocaine 2% viscous 15 ML, aluminum-mag hydrox-simethicon 30 ML, sucralfate oral liq 1 GM PO (03:39)
[2025-07-12 03:45] LABS: Hematocrit 43.4 % (37-53); Hemoglobin 14.80 g/dL (11.27-16.99); Mean Corpuscular HGB Conc 34.1 g/dL (30-55); Mean Corpuscular Hemoglobin 31.4 pg (27-33); Mean Corpuscular Volume 91.9 fl (82-101); Nucleated Red Blood Cells % 0 %; Platelet Count 200 10^3/cmm (157-399); Red Blood Count 4.72 10^6/uL (3.85-5.65); White Blood Count 7.76 10^3/uL (3.29-11.43)
[2025-07-12 03:57] LABS: INR 0.87 (0.8-1.2); Prothrombin Time 12.40 SECONDS (12.1-14.9)
[2025-07-12 04:06] LABS: Troponin(5th) Baseline 13 ng/L (0-15)
[2025-07-12 04:10] LABS: Alanine Aminotransferase 28 U/L (0-41); Albumin Level 4.4 g/dL (3.5-5.2); Alkaline Phosphatase 134 U/L (40-130); Anion Gap 14.9 (5-19); Aspartate Amino Transferase 26 U/L (0-40); Blood Urea Nitrogen 13 mg/dL (8-23); Calcium 9.3 mg/dL (8.5-10.5); Carbon Dioxide 28 mmol/L (22-29); Chloride 103 mmol/L (98-107); Creatinine Clr Calc Pharmacy 75.6720; Globulin 2.3 g/dL (1.3-4.6); Glucose 112 mg/dL (65-115); Lipase 46 U/L (13-60); Osmolality Calculated 295 mOsm/kg (285-295); Potassium 3.9 mmol/L (3.5-5.1); Sodium 142 mmol/L (136-145); Total Protein 6.7 g/dL (6.6-8.7)
--- NOTE | 2025-07-12 05:15 | ECG_ITS ---
[facility]: 2025-07-12 Pat Name: Herb Chanel Department: Room: Gender: Male Supervisor Wood Crew: : 1950 Requested By: Simone Keene Order Number: [id number] Reading MD: Measurements Intervals [place] Rate: 39 P: 0 [place]: 0 QRS: 20 QRSD: 104 T: 36 QT: 435 QTc: 351 Interpretive Statements ATRIAL FIBRILLATION WITH SLOW VENTRICULAR RESPONSE TYPE 3 BRUGADA PATTERN (NON-DIAGNOSTIC) [COVED/SADDLEBACK ST ELEVATION > 0.1mV IN 2 OF V1-3] CRITICAL TEST RESULT [email or web address]
--- NOTE | 2025-07-12 05:44 | USCV_ITS ---
Herb Chanel Age: 75 Gender: M : 1950 Exam Date: 07/12/2025 08:23 Ordering Phys: Angel Hamm MD Technologist: Exam Location: [facility] [place] [facility] Indication: ama BP: 156 / 85 HR: 41 Rhythm: Sinus Technical Quality: Adequate MEASUREMENTS (Male / Female) Normal Values 2D ECHO LV Diastolic Diameter PLAX 3.9 cm 4.2 - 5.9 / 3.9 - 5.3 cm IVS Diastolic Thickness 1.1 cm 0.6 - 1.0 / 0.6 - 0.9 cm IVS Systolic Thickness 1.8 cm LVPW Diastolic Thickness 1.3 cm 0.6 - 1.0 / 0.6 - 0.9 cm LVPW Systolic Thickness 2.3 cm LVOT Diameter 2.1 cm LV Ejection Fraction 2D Teich 54.2 % LV Ejection Fraction MOD 4C 57.2 % LV Ejection Fraction MOD 2C 67.6 % LV Ejection Fraction 2C AL 66.8 % RA Systolic Volume 4C AL 45.4 ml RA Systolic Volume 4C MOD 44.3 ml Aorta at Sinotubular Diameter 3.5 cm M-MODE LA Ao Ratio MM 1.4 AV Cusp Separation MM 2.2 cm DOPPLER AV Peak Velocity 139.0 cm/s LVOT Peak Velocity 71.0 cm/s AV Area Cont Eq vti 1.8 cm squared AV Area Cont Eq pk 1.7 cm squared MV Peak Velocity 109.0 cm/s MV Area PHT 3.4 cm squared Mitral E to A Ratio 1.3 TR Peak Velocity 233.0 cm/s TR Peak Gradient 21.7 mmHg TV Peak E Velocity 94.0 cm/s PV Peak Velocity 95.0 cm/s FINDINGS Left Ventricle Normal left ventricular size, systolic function and ejection fraction of 57%. Normal left ventricular diastolic function. Mild left ventricular hypertrophy. Right Ventricle Normal right ventricular size and systolic function. Right Atrium Normal right atrial size. Left Atrium Normal left atrial size. IA Septum Normal appearance of the interatrial septum. Mitral Valve Normal mitral valve structure. No mitral valve stenosis or regurgitation. Aortic Valve Normal aortic valve structure. No aortic valve stenosis or regurgitation. Tricuspid Valve Normal tricuspid valve structure. Trace regurgitation. Normal pulmonary pressure. Pulmonic Valve Normal pulmonic valve structure. No pulmonic valve stenosis or regurgitation. Pericardium No pericardial effusion. Aorta Normal diameter of the aortic root and ascending thoracic aorta. IVC Inferior vena cava not visualized. CONCLUSIONS Normal left ventricular size, systolic function and ejection fraction of 58%. Mild left ventricular hypertrophy. Normal right ventricular size and systolic function. No significant valvular abnormalities. Duc Anaya MD, FACC (Electronically Signed) Final Date: 12 July 2025 20:59 S
--- NOTE | 2025-07-12 05:45 | PM.HP ---
Providers/Chief Complaint Admitting Physician: Angel Hamm MD Primary Care Provider: Herber Hernandez MD Chief Complaint: CP History of Present Illness Herb Chanel is a 75 year old male CAD status post stenting, who presents [facility] chest discomfort. Patient tells me that in the past, he was evaluated for Brugada syndrome, he saw a Brugada syndrome specialist at the [facility], had extensive testing, was told that he had features and symptoms of Brugada, but did not meet the diagnostic criteria. He also has had issues with bradycardia, at times he has been told that he would need a pacemaker, but he tells me that that decision was always overridden by cardiology, as his heart rates would improve on their own, improve with exercise. He tells me that he has been recently trying to lose weight, he has been more physically active, walking more, at least a mile a few times a week, he has not experienced any chest discomfort or shortness of breath. He tells me that today he started developing substernal discomfort, nonradiating, not short associate with shortness of breath, in the center of his chest, no lightheadedness, dizziness, no diaphoresis, describes the discomfort as a burning sensation, the GI cocktail that he has received has helped somewhat Review of Systems Card: Reports: chest pain Resp: Denies: dyspnea Medications/Allergies Home Medications ?Medication ?Instructions ?Recorded ?Confirmed ?Last Taken ?Type aspirin 81 mg tablet,delayed 81 mg PO BEDTIME 02/16/20 03/30/25 05/22/23 History release atorvastatin 80 mg tablet 80 mg PO BEDTIME 05/23/23 03/30/25 05/22/23 History lisinopril 20 mg tablet 20 mg PO BEDTIME 05/23/23 03/30/25 05/22/23 History multivitamin 1 tab PO BEDTIME 05/23/23 03/30/25 05/22/23 History Allergies Allergy/AdvReac Type Severity Reaction Status Date / Time diphenhydramine (From Allergy ALGY-Fever Verified 03/30/25 06:26 Benadryl) PFSH Acute PFSH: Medical History Obesity Syncope 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 Acute prostatitis Hypokalemia Anxiety Venous insufficiency Dyslipidemia ASHD (arteriosclerotic heart disease) Surgical History S/P PTCA (percutaneous transluminal coronary angioplasty) Family History Father , AGE 64 CAD (coronary artery disease) Myocardial infarction Social History Smoking and tobacco/nicotine status: never used tobacco/nicotine Marital status: service: No Current occupational status: employed Vitals/I&O/Wt Last Vital Signs Temp 98.1 F 07/12/25 03:25 Pulse 57 L 07/12/25 05:30 Resp 20 H 07/12/25 03:25 BP 117/68 07/12/25 05:30 Pulse Ox 91 07/12/25 05:30 O2 Del Method Room Air 07/12/25 05:30 Weight last 48 hrs Weight 100.698 kg Physical Exam Const: COMMON NORMALS: no acute distress and patient oriented x3 Eye: COMMON NORMALS: Equal, round and reactive pupils present and EOMs intact bilaterally Resp: COMMON NORMALS: normal respiratory effort, No retractions, No use of accessory muscles and clear to auscultation bilaterally AUSCULTATION: clear to auscultation bilaterally Cardio: COMMON NORMALS: regular rate, regular rhythm, S1 normal heart sound present and S2 normal heart sound present RATE: bradycardic RHYTHM: regular rhythm HEART SOUNDS: S1 normal heart sound present and S2 normal heart sound present GI: COMMON NORMALS: Normal to inspection, nondistended, normoactive bowel sounds present, Soft to palpation and non-tender Extremity: COMMON NORMALS: capillary refill normal, no calf tenderness and no pedal edema Neuro: COMMON NORMALS: patient oriented x3, CN's II-XII intact bilaterally and moves all extremities Psych: COMMON NORMALS: mental status grossly normal Data 07/12/25 03:33 07/12/25 03:33 A&P Assessment and plan 1. S/P PTCA (percutaneous transluminal coronary angioplasty): 2. Bradycardia: 3. 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: 4. Atypical chest pain: Plan: Atypical chest discomfort - Burning sensation in the center of his chest - Baseline troponin 13 - EKG showing ST-T wave changes in anterior leads, Brugada pattern, emergency room monitor EKG was discussed with Dr. Romero, who recommended observation - Currently chest pain-free Plan - Serial EKGs, troponins, telemetry monitoring - Cardiac echo - Aspirin, statin - Cardiology consulted by ER provider History of bradycardia - With current sinus bradycardia, - Will monitor PDMP PDMP Reviewed: Not Reviewed Attestations Medical Necessity Statement*: Patient request hospitalization, outpatient observation, for atypical chest discomfort Diagnoses S/P PTCA (percutaneous transluminal coronary angioplasty) Z98.61 Bradycardia R00.1 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 I49.8 Atypical chest pain R07.89
[2025-07-12 05:52] LABS: Troponin 5 2HR 11.93 ng/L (0-15); Troponin 5 2HR Delta -1.07 ABS# (0-10)
[2025-07-12] MEDS: pantoprazole 40 mg SDV IVP (06:19)
[2025-07-12 06:32] LABS: Estmated Average Glucose 97; Hemoglobin A1C 5.0 % (4.0-6.0)
[2025-07-12 06:37] LABS: Cholesterol 141 mg/dL (0-200); HDL Cholesterol 31 mg/dL (60-100); NT Pro B Type Natriuretic Pept 80 pg/mL (0-125); Thyroid Stimulating Hormone 3.67 uIU/mL (0.27-4.20); Triglycerides 270 mg/dL (0-150)
--- NOTE | 2025-07-12 09:04 | P.DS_ITS ---
Discharge Providers Date of Admission: 07/12/25 05:26 Date of Discharge: July 12, 2025 Attending Provider at Admission: Angel Hamm MD Attending Provider at Discharge: Eliza Roldan NP Primary Care Provider: Herber Hernandez MD Diagnoses at Discharge Discharge Diagnosis 1. S/P PTCA (percutaneous transluminal coronary angioplasty): 2. Bradycardia: 3. 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: 4. Atypical chest pain: Reason for Visit Reason for Visit: CP Brief History: Admission: Herb Chanel is a 75 year old male CAD status post stenting, who presents [facility] chest discomfort. Patient tells me that in the past, he was evaluated for Brugada syndrome, he saw a Brugada syndrome specialist at the [facility], had extensive testing, was told that he had features and symptoms of Brugada, but did not meet the diagnostic criteria. He also has had issues with bradycardia, at times he has been told that he would need a pacemaker, but he tells me that that decision was always overridden by cardiology, as his heart rates would improve on their own, improve with exe rcise. He tells me that he has been recently trying to lose weight, he has been more physically active, walking more, at least a mile a few times a week, he has not experienced any chest discomfort or shortness of breath. He tells me that today he started developing substernal discomfort, nonradiating, not short associate with shortness of breath, in the center of his chest, no lightheadedness, dizziness, no diaphoresis, describes the discomfort as a burning sensation, the GI cocktail that he has received has helped somewhat. Hospital Course Hospital Course Interventions: Patient had negative ACS workup. Negative troponins. Echo finalized results pending at discharge, preliminary with preserved ejection fraction but patient did not want to wait for results, will follow-up outpatient with PCP. Patient had complete resolution of chest pain, stated that pain was more epigastric after he ate late yesterday evening. Patient does have muscle tenderness over left-sided chest, atypical chest pain. 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 Patient continues cardioprotective medications with aspirin, atorvastatin, lisinopril at discharge. Advised patient to follow-up with primary care provider in 1 to 2 days. Patient discharged in stable condition, all questions and concerns addressed with the patient at the bedside prior to discharge. Physical Exam Const: COMMON NORMALS: no acute distress and patient oriented x3 Eye: COMMON NORMALS: Equal, round and reactive pupils present and EOMs intact bilaterally PUPIL: Yes Equal, round and reactive pupils present Resp: COMMON NORMALS: normal respiratory effort, No retractions, No use of accessory muscles and clear to auscultation bilaterally AUSCULTATION: clear to auscultation bilaterally Cardio: COMMON NORMALS: regular rate, regular rhythm, S1 normal heart sound present and S2 normal heart sound present RATE: regular rate and bradycardic RHYTHM: regular rhythm HEART SOUNDS: S1 normal heart sound present and S2 normal heart sound present GI: COMMON NORMALS: Normal to inspection, nondistended, normoactive bowel sounds present, Soft to palpation and non-tender PALPATION: Yes Soft to pal pation Extremity: COMMON NORMALS: capillary refill normal, no calf tenderness and no pedal edema Neuro: COMMON NORMALS: patient oriented x3, CN's II-XII intact bilaterally and moves all extremities Psych: COMMON NORMALS: mental status grossly normal Discharge Data Studies Completed and Pending Completed Studies During Hospitalization Category Date Time Status XR chest 1V portable [id number] Stat Exams 07/12/25 03:24 Completed Pending at discharge Category Date Time Status Basic Metabolic Panel AM LABS Lab 07/13/25 04:00 Ordered Complete Blood Count w/Auto AM LABS Lab 07/13/25 04:00 Ordered Troponin(5th) 6 hour. Timed Lab 07/12/25 09:33 Ordered CV. echo complete* [id number] Stat Ultrasound 07/12/25 05:44 Taken Radiology Impressions Chest X-Ray 07/12/25 03:24 IMPRESSION: No acute findings. Laboratory Results WBC 7.76 10^3/uL (3.29-11.43) 07/12/25 03:33 RBC 4.72 10^6/uL (3.85-5.65) 07/12/25 03:33 Hgb 14.80 g/dL (11.27-16.99) 07/12/25 03:33 Hct 43.4 % (37-53) 07/12/25 03:33 MCV 91.9 fl (82-101) 07/12/25 03:33 MCH 31.4 pg (27-33) 07/12/25 03:33 MCHC 34.1 g/dL (30-55) 07/12/25 03:33 RDW 12.8 % (12.1-15.1) 07/12/25 03:33 Plt Count 200 10^3/cmm (157-399) 07/12/25 03:33 MPV 10.0 fL (7.4-10.4) 07/12/25 03:33 Neut % (Auto) 59.8 % 07/12/25 03:33 Lymph % (Auto) 30.9 % 07/12/25 03:33 [place] % (Auto) 6.4 % 07/12/25 03:33 Eos % (Auto) 2.1 % 07/12/25 03:33 Baso % (Auto) 0.5 % 07/12/25 03:33 Neut # (Auto) 4.64 10^3/uL (1.8-7.7) 07/12/25 03:33 Lymph # (Auto) 2.4 10^3/uL (0.8-4.8) 07/12/25 03:33 [place] # (Auto) 0.5 10^3/uL (0.2-0.9) 07/12/25 03:33 Eos # (Auto) 0.2 10^3/uL (0.0-0.8) 07/12/25 03:33 Baso # (Auto) 0.0 10^3/uL (0.0-0.1) 07/12/25 03:33 Nucleated RBC % (auto) 0 % 07/12/25 03:33 Nucleated RBCs # 0.0 /100WBC 07/12/25 03:33 PT 12.40 SECONDS (12.1-14.9) 07/12/25 03:33 INR 0.87 (0.8-1.2) 07/12/25 03:33 Sodium 142 mmol/L (136-145) 07/12/25 03:33 Potassium 3.9 mmol/L (3.5-5.1) 07/12/25 03:33 Chloride 103 mmol/L (98-107) 07/12/25 03:33 Carbon Dioxide 28 mmol/L (22-29) 07/12/25 03:33 Anion Gap 14.9 (5-19) 07/12/25 03:33 BUN 13 mg/dL (8-23) 07/12/25 03:33 Creatinine 1.0 mg/dL (0.7-1.2) 07/12/25 03:33 GFR Calculation Not Reportable 07/12/25 03:33 Glucose 112 mg/dL (65-115) 07/12/25 03:33 Estimat Average Glucose 97 07/12/25 03:33 Hemoglobin A1c 5.0 % (4.0-6.0) 07/12/25 03:33 Calculated Osmolality 295 mOsm/kg (285-295) 07/12/25 03:33 Calcium 9.3 mg/dL (8.5-10.5) 07/12/25 03:33 Total Bilirubin 0.5 mg/dL (0.15-1.2) 07/12/25 03:33 AST 26 U/L (0-40) 07/12/25 03:33 ALT 28 U/L (0-41) 07/12/25 03:33 Alkaline Phosphatase 134 U/L (40-130) H 07/12/25 03:33 Troponin T Baseline 13 ng/L (0-15) 07/12/25 03:33 Troponin T 120 Minute 11.93 ng/L (0-15) 07/12/25 05:28 Delta Troponin T -1.07 ABS# (0-10) L 07/12/25 05:28 NT-Pro-B Natriuret Pep 80 pg/mL (0-125) 07/12/25 03:33 Total Protein 6.7 g/dL (6.6-8.7) 07/12/25 03:33 Albumin 4.4 g/dL (3.5-5.2) 07/12/25 03:33 Globulin 2.3 g/dL (1.3-4.6) 07/12/25 03:33 Triglycerides 270 mg/dL (0-150) H 07/12/25 03:33 Cholesterol 141 mg/dL (0-200) 07/12/25 03:33 LDL Cholesterol, Calc 56 mg/dL (50-129) 07/12/25 03:33 HDL Cholesterol 31 mg/dL (60-100) L 07/12/25 03:33 LDL/HDL Ratio 1.81 RATIO (0.00-3.22) 07/12/25 03:33 Cholesterol/HDL Ratio 4.55 mg/dL (1.0-5.00) 07/12/25 03:33 Lipase 46 U/L (13-60) 07/12/25 03:33 TSH 3.67 uIU/mL (0.27-4.20) 07/12/25 03:33 Vitals Last Vital Signs Temp 97.8 F 07/12/25 07:49 Pulse 65 07/12/25 07:49 Resp 17 07/12/25 07:49 BP 156/85 07/12/25 07:49 Pulse Ox 97 07/12/25 07:49 O2 Del Method Room Air 07/12/25 05:59 Discharge Plan Discharge Patient Disposition: Home Condition: Stable Prescriptions: Continued aspirin 81 mg tablet,delayed release (DR/EC) 81 mg PO BEDTIME multivitamin Tablet 1 tab PO BEDTIME atorvastatin 80 mg tablet 80 mg PO BEDTIME lisinopril 20 mg tablet 20 mg PO BEDTIME Discharge Order = DC NOW: Discharge Order (Routine); Ordered 07/12/25 Ordered By: Eliza Roldan Referrals: Herber Hernandez MD [Primary Care Provider, [facility]] Discharge Diet: Cardiac Discharge Activity: Resume usual activity Patient Instructions: Opioid Safety, Patient Portal & Stephane Instructions Discharge Attestations Time Spent in Discharge Care*: greater than 30 min Quality Metrics Clinical Quality Measures [ No reported AMI, CVA or VTE this stay] Coding Level of Care Code 78316 Diagnoses S/P PTCA (percutaneous transluminal coronary angioplasty) Z98.61 Bradycardia R00.1 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 I49.8 Atypical chest pain R07.89
--- NOTE | 2025-07-12 09:20 | ECG_ITS ---
[facility] Test Date: 2025-07-12 Pat Name: Herb Chanel Department: Room: Gender: Male [employer]: : 1950 Requested By: Simone Keene Order Number: [id number] Reading MD: Measurements Intervals [place] Rate: 38 P: 50 [place]: 141 QRS: 35 QRSD: 106 T: 50 QT: 466 QTc: 374 Interpretive Statements SINUS BRADYCARDIA WITH OCCASIONAL SUPRAVENTRICULAR PREMATURE COMPLEXES CRITICAL TEST RESULT [email or web address]
[2025-07-12 10:02] LABS: Troponin 5 6HR 10.89 ng/L (0-15)
[2025-07-12 10:08] LABS: Troponin 5 6HR Delta -2.11 ng/L (0-12)
== END 2025-07-12 11:05 | disposition home or self-care (01) ==
LOC: ER 03:32 → CSU 05:44
PROVIDERS: Admitting Provider Family Medicine; Emergency Provider Emergency Medicine; PCP Family Medicine; Visit Provider Registered Nurse
DX: R07.89 Other chest pain (principal); R00.1 Bradycardia, unspecified; I49.8 Other specified cardiac arrhythmias; Z98.61 Coronary angioplasty status; Z79.82 Long term (current) use of aspirin; E66.9 Obesity, unspecified; Z68.34 Body mass index [BMI] 34.0-34.9, adult; E78.5 Hyperlipidemia, unspecified; F41.9 Anxiety disorder, unspecified; I25.10 Atherosclerotic heart disease of native coronary artery without angina pectoris
CPT/HCPCS: 36415; 71045; 80053; 80061; 83036; 83690; 83880; 84443; 84484; 85025; 85610; 93005; 93306; 94664; 96372; 99285; G0378; J1650; J2470; J9999

== ENCOUNTER → 2025-08-09 14:16 | Outpatient (BNVA) | payer MEDICARE, OTHER, SELFPAY | PROVIDERS: PCP Family Medicine; Visit Provider Internal Medicine | DX: I25.10 Atherosclerotic heart disease of native coronary artery without angina pectoris (principal); I87.2 Venous insufficiency (chronic) (peripheral); E78.5 Hyperlipidemia, unspecified; Z98.61 Coronary angioplasty status; Z79.82 Long term (current) use of aspirin | CPT/HCPCS: 99214 ==